=== PATIENT | male | born 1950 | race Caucasian/White ===

== ENCOUNTER → 2021-01-06 14:04 | Outpatient (BNVA) | payer MEDICARE, SELFPAY | PROVIDERS: PCP Internal Medicine; Visit Provider Internal Medicine Cardiovascular Disease ==

== ENCOUNTER → 2021-01-19 07:22 | Outpatient (REF) | payer MEDICARE, SELFPAY ==
--- NOTE | ~2021-01-19 | NM_ITS ---
Myocardial perfusion study Indication: Abnormal EKG to evaluate for myocardial ischemia Technique: The patient was brought in for a Lexiscan perfusion study on 01/19/2021. Patient performed low-level exercise and was injected 0.4 mg of Lexiscan intravenously. Within a minute of injection, 35 mCi of sestamibi was given intravenously. Images were obtained using the SPECT gamma camera interlaced with the gating device. Images were obtained in supine position. Resting perfusion study was performed on 01/20/2021. Patient was administered 35 mCi of sestamibi intravenously at rest. Images were then obtained in supine position. Images obtained with and without CT attenuation. Total DLP 92 mGy-cm. Images were processed with the software and compared side to side in short axis, horizontal long axis and vertical long axis views. Findings: The stress perfusion study showed nonattenuated images show large area of absent uptake in the inferoapical and apex of the LV myocardium with severely reduced uptake in the basal and mid inferior wall of the LV myocardium. Remainder of the LV myocardium is normally perfused except for the chest and inferolateral and inferoseptal osborne. Attenuation corrected images show moderately large area of absent uptake in the inferoapical and apical wall of the LV myocardium.. The gated study shows reduced LV systolic function with calculated LVEF of 44%. LV cavity is moderately dilated size. The gated study shows reduced inferior and absent inferoapical wall thickening and contraction of segments. Resting study shows no change in perfusion pattern compared to stress perfusion study. Gating at rest reveals inferior wall motion abnormality with ejection fraction at 45%. The findings are consistent with moderately large area of transmural infarct of the inferoapical and apical wall of the LV myocardium without any clear reversible ischemia.. NM/NM cardiolite stress test Impression: 1. Myocardial perfusion imaging study shows moderately large area of transmural infarct in the inferoapical and apical wall of the LV myocardium in RCA territory 2. Gated LVEF is 44% 3. Transient ischemic dilatation not present EKG is nondiagnostic
--- NOTE | 2021-01-19 07:30 | CA_ITS ---
Transthoracic Echocardiogram Patient (Last, First, Middle): Eron Escudero, Gender: Male Date of : 1950 Age: 70 Procedure Date: 01/19/2021 Procedure Type: Transthoracic Echocardiogram Location: OP Height: 182.88 cm Weight: 99.79 kg BSA: 2.22 m2 Heart Rate: bpm BP: 134 / 80 mmHg Dental Assistant: Referring MD: Marlo Dover MD Salvage Inspector Wood Parts: Marlo Dover MD Symptoms: R94.31 - Abnormal electrocardiogram [ECG] [EKG] Study Quality: Good on Apical views ECG Rhythm: Sinus with extra beats Conclusions: - 1. Moderate to severe LV systolic dysfunction with regional wall motion abnormality suggestive ischemic cardiomyopathy with impaired relaxation filling pattern 2. Mildly dilated left atrium 3. Normal cardiac valvular Doppler 4. Normal RV systolic pressure 5. No pericardial effusion Findings Left Ventricle Normal left ventricular cavity size. There is mildly increased left ventricular wall thickness. The left ventricular systolic function is moderate to severely decreased. The visually estimated ejection fraction is between 30-35%. Spectral Doppler is indicative of an impaired relaxation filling pattern. E/E prime ratio is between 8 and 15 consistent with indeterminate filling pressures. Wall Motion Rest Echo Findings The basal inferior and mid inferior segments are hypokinetic. The inferoseptal wall, the apex, apical anterior, and apical inferior segments are akinetic. All other scored wall segments showed normal motion. Right Ventricle Normal right ventricular cavity size and systolic function. Atria The left atrium is mildly dilated. There is no evidence of interatrial shunt. The right atrium is normal in size. Aortic Valve The aortic valve was not well visualized. There is no aortic valve stenosis. There is no aortic valve regurgitation. Mitral Valve Likely normal mitral valve structure and function. There is trace mitral valve regurgitation. There is no mitral valve stenosis. Pulmonic Valve The pulmonic valve was not well visualized. Tricuspid Valve There is trace tricuspid valve regurgitation. The right ventricular systolic pressure is normal. The right ventricular systolic pressure is 15 mmHg. There is no evidence of pulmonary hypertension. Great Vessels All visible segments of the aorta are normal in size. The pulmonary artery was not well visualized. Venous The inferior vena cava is normal in size and collapses greater than 50% with inspiration. Pericardium/Pleural There is no evidence of pericardial effusion. Prior Study Comparison No prior study available for comparison. Measurements 2D Linear Measurements IVSd: 1.39 0.6-0.9/0.6-1.0 cm LVIDd: 6.04 3.9-5.3/4.2-5.9 cm LVIDd Index: 2.72 2.4-3.2/2.2-3.1 cm/m2 LVIDs: 4.94 2.0-3.6 cm LVPWd: 1.26 0.7-1.1 cm Ao Root: 3.40 2.1-3.5 cm LA Diam: 4.20 2.7-3.8/3.0-4.0 cm LAIDs Index: 1.89 1.5-2.3 cm/m2 LV Mass: 453.32 67-162/88-224 g LV Mass Index: 204.20 43-95/49-115 g/m2 LVOT Diam: 2.20 3.0+(-)1.3 cm 2D Systolic Function EF 4C: 40.70 >55% EF 2C: 23.00 >55% Mitral Valve MV Pk E: 0.41 MV PK A: 0.97 MV Decel Time: 147.00 E/A: 0.40 E'Lateral: 3.59 E'Medial: 3.81 E/E' Med: 10.70 E/E' Lat: 11.30 PHT: 43.00 MVA PHT: 5.12 Decel Daniels: 2.76 Aortic Valve AoV Pk Derrick: 1.45 AoV Mn Derrick: 1.01 AoV VTI: 0.29 AoV Pk Grad: 8.00 Aov Mn Grad: 5.00 GWEN Cont.VTI: 2.59 LVOT LVOT Pk Derrick: 0.85 LVOT Mn Derrick: 0.58 LVOT VTI: 0.20 LVOT Pk Grad: 3.00 LVOT Mn Grad: 2.00 LVOT Diam: 2.20 LVOT Area: 3.80 Diastolic Function MV Pk E: 0.41 MV Pk A: 0.97 E/A: 0.40 E'Medial: 3.81 E/E' Med: 10.70 E' Laterial: 3.59 E/E' Lat: 11.30 Tricuspid Valve TR Pk Derrick: 1.70 TR Pk Grad: 12.00 RA Press: 3.00 RVSP: 15.00 Great Vessels Aorta Ao Root-2D: 3.40 2.0-3.7 cm Ao Asc: 3.50 2.1-3.4 cm Pulmonary Valve PV Pk Derrick: 1.21 Peak PV Grad: 6.00 Updated in Other Vendor System with Status of Final Marlo Dover MD electronically signed on 01/19/2021 4:07:19 PM with status of Final
--- NOTE | 2021-01-19 07:30 | CA_ITS ---
Acquisition Time: 2021-01-19 08:33:54 Total Exercise Time: 00:02:00 Test Indications: Abnormal ECG Medications: ATORVASTATIN CILOSTAZOL RAMIPRIL TRAZADONE Protocol: LEXISCAN Max HR: 092 BPM 61% of Pred: 149 BPM Max BP: 138/080 mmHG Max Work Load: 1.0 METS Pharmacological stress test with lexiscan injection, while sitting and kicking his legs, without anginal symptoms, with isolated PVC, with normotensive response to injection, with nondiagnostic EKG for ischemia. Nuclear images pending. Test reviewed with Dr Dover. Referred By: Marlo Dover Overread By: SHAHEED TORRES
== END ==
LOC: HO.CARD 07:22
PROVIDERS: PCP Physician Assistant Medical; Visit Provider Internal Medicine Cardiovascular Disease
DX: R94.31 Abnormal electrocardiogram [ECG] [EKG] (principal); I73.9 Peripheral vascular disease, unspecified; I25.10 Atherosclerotic heart disease of native coronary artery without angina pectoris
CPT/HCPCS: 78452; 93017; 93306; 99212; A9500; J0280; J2785

== ENCOUNTER 2021-01-24 08:36 | Outpatient (REF) | payer MEDICARE, SELFPAY ==
--- NOTE | ~2021-01-24 | US_ITS ---
EXAMINATION: NONINVASIVE ASSESSMENT OF THE ARTERIES OF BOTH LOWER EXTREMITIES BILATERAL LOWER EXTREMITY DUPLEX CLINICAL INFORMATION: Coronary artery disease TECHNIQUE: Bilateral duplex Doppler techniques with wave form analysis and measurement of velocities in the common femoral, profunda femoral, superficial femoral, popliteal and tibial arteries. The study was performed only at rest. COMPARISON: None FINDINGS: a) AT REST: RIGHT LEG: . Right direct duplex Doppler findings: There is atherosclerotic plaque. The right profunda appears occluded. * Common femoral artery: 82 cm/s, Diastolic flow reversal: No. Biphasic * Superficial femoral artery (proximal, mid, distal): 258, 191 and 101 cm/s, Diastolic flow reversal: No. Biphasic. * Popliteal artery: 99 cm/s, Diastolic flow reversal: No. Biphasic. * Posterior tibial artery: 80 cm/s, Diastolic flow reversal: No. Biphasic. LEFT LEG: Left direct duplex Doppler findings: There is atherosclerotic plaque. There is visible narrowing of the right mid and distal superficial femoral artery. * Common femoral artery: 218 cm/s, Diastolic flow reversal: No. [place] to biphasic. * Superficial femoral artery (proximal, mid, distal): 121, 661 and 91 cm/s, Diastolic flow reversal: No. Biphasic. * Popliteal artery: 31 cm/s, Diastolic flow reversal: No. Biphasic. * Posterior tibial artery: 35 cm/s, Diastolic flow reversal: No. Biphasic. * US/US arterial duplex LE BI IMPRESSION: Atherosclerotic disease, left greater than right. The right profunda appears occluded. There is a velocity change in the right SFA suggestive of moderate stenosis. Severe velocity change in the left SFA and visible luminal narrowing of the left mid and distal SFA suggestive of severe stenosis.
== END 2021-01-24 08:37 | disposition home or self-care (01) ==
LOC: HO.US 08:36
PROVIDERS: Visit Provider Internal Medicine Cardiovascular Disease
DX: I73.9 Peripheral vascular disease, unspecified (principal); I25.10 Atherosclerotic heart disease of native coronary artery without angina pectoris
CPT/HCPCS: 93925

== ENCOUNTER 2021-01-27 12:34 | Outpatient (REF) | payer MEDICARE, SELFPAY ==
[2021-01-27 14:11] LABS: Hematocrit 42.1 % (42-52); Hemoglobin 13.9 g/dl (14.0-18.0); Mean Platelet Volume 9.6 fL (9.4-12.4); Platelet Count 243 X10*3/uL (160-400); Red Blood Count 4.48 X10*6/uL (4.60-5.80); Red Cell Distribution Width 11.8 % (11.0-16.0); White Blood Count 8.2 X10*3/uL (4.8-10.8)
[2021-01-27 14:14] LABS: Prothrombin Time 11.4 SEC (10.8-13.0)
[2021-01-27 14:43] LABS: Anion Gap 14 (12-20); Blood Urea Nitrogen 23 mg/dL (9-16); Carbon Dioxide 25 mmol/L (22-29); Chloride 107 mmol/L (96-108); Estimated Glomerular Filt Rate 51; Glucose Random 131 mg/dL (60-115); Potassium 5.7 mmol/L (3.3-5.1); Sodium 140 mmol/L (135-145)
== END 2021-01-27 12:35 | disposition home or self-care (01) ==
LOC: HO.LAB 12:34
PROVIDERS: PCP Physician Assistant Medical; Referring Provider Physician Assistant Medical; Visit Provider Internal Medicine Cardiovascular Disease
DX: I25.10 Atherosclerotic heart disease of native coronary artery without angina pectoris (principal); I25.5 Ischemic cardiomyopathy; Z79.899 Other long term (current) drug therapy
CPT/HCPCS: 36415; 80048; 85027; 85610; 99212

== ENCOUNTER 2021-02-03 14:13 | Outpatient (REF) | payer MEDICARE, SELFPAY ==
[2021-02-03 16:51] LABS: Anion Gap 13 (12-20); Blood Urea Nitrogen 24 mg/dL (9-16); Calcium 9.3 mg/dL (8.4-10.2); Carbon Dioxide 23 mmol/L (22-29); Chloride 107 mmol/L (96-108); Estimated Glomerular Filt Rate 53; Glucose Random 152 mg/dL (60-115); Potassium 4.8 mmol/L (3.3-5.1); Sodium 138 mmol/L (135-145)
== END 2021-02-03 14:14 | disposition home or self-care (01) ==
LOC: HO.HMGCLDS 14:13
PROVIDERS: Visit Provider Internal Medicine Cardiovascular Disease
DX: I25.10 Atherosclerotic heart disease of native coronary artery without angina pectoris (principal)
CPT/HCPCS: 36415; 80048

== ENCOUNTER → 2021-02-28 14:59 | Outpatient (BNVA) | payer MEDICARE, SELFPAY | PROVIDERS: PCP Physician Assistant Medical; Referring Provider Physician Assistant Medical; Visit Provider Internal Medicine Cardiovascular Disease | DX: I25.5 Ischemic cardiomyopathy (principal); I25.10 Atherosclerotic heart disease of native coronary artery without angina pectoris; I73.9 Peripheral vascular disease, unspecified | CPT/HCPCS: 99212 ==

== ENCOUNTER → 2021-03-03 13:45 | Outpatient (BNVA) | payer MEDICARE, SELFPAY | PROVIDERS: PCP Physician Assistant Medical; Visit Provider Surgery Vascular Surgery | DX: I73.9 Peripheral vascular disease, unspecified (principal); I25.10 Atherosclerotic heart disease of native coronary artery without angina pectoris; I25.5 Ischemic cardiomyopathy; Z87.891 Personal history of nicotine dependence | CPT/HCPCS: 99202 ==

== ENCOUNTER → 2021-04-13 14:43 | Outpatient (BNVA) | payer MEDICARE, SELFPAY | PROVIDERS: PCP Physician Assistant Medical; Referring Provider Physician Assistant Medical; Visit Provider Nurse Practitioner Family | DX: T82.898A Other specified complication of vascular prosthetic devices, implants and grafts, initial encounter (principal); I21.19 ST elevation (STEMI) myocardial infarction involving other coronary artery of inferior wall; I25.10 Atherosclerotic heart disease of native coronary artery without angina pectoris; I25.5 Ischemic cardiomyopathy; I73.9 Peripheral vascular disease, unspecified; Z87.891 Personal history of nicotine dependence; Z98.890 Other specified postprocedural states | CPT/HCPCS: 99212 ==

== ENCOUNTER → 2021-05-16 13:52 | Outpatient (REF) | payer MEDICARE, SELFPAY ==
--- NOTE | 2021-05-16 13:57 | CA_ITS ---
Transthoracic Echocardiogram Patient (Last, First, Middle): Eron Escudero, Gender: Male Date of : 1950 Age: 70 Procedure Date: 05/16/2021 Procedure Type: Transthoracic Echocardiogram Location: OP Height: 193.04 cm Weight: 99.79 kg BSA: 2.31 m2 Heart Rate: bpm BP: 130 / 81 mmHg Vehicle Body Builder: YAS Referring MD: Marlo Dover MD Symptoms: I42.9 - Cardiomyopathy, unspecified Study Quality: Fair ECG Rhythm: Sinus Conclusions: - The left ventricular systolic function is mildly decreased. The calculated ejection fraction is 50% by biplane method. - The apex, apical anterior, and apical inferior segments are akinetic. Findings Left Ventricle Normal left ventricular cavity size. The left ventricular systolic function is mildly decreased. The calculated ejection fraction is 50% by biplane method. There is evidence of regional wall motion abnormalities. LV peak GLS -10.5%, Wall Motion Rest Echo Findings The apex, apical anterior, and apical inferior segments are akinetic. Prior Study Comparison Changes noted compared to prior study dated: 01/19/2021. LVEF improved. Measurements 2D Linear Measurements LVIDd: 5.92 3.9-5.3/4.2-5.9 cm LVIDd Index: 2.56 2.4-3.2/2.2-3.1 cm/m2 LVIDs: 4.07 2.0-3.6 cm 2D Systolic Function EF 4C: 56.40 >55% EF 2C: 47.00 >55% EF BiP: 49.60 >55% Mitral Valve MV Pk E: 0.51 MV PK A: 0.89 MV Decel Time: 346.00 E/A: 0.60 E'Lateral: 7.83 E'Medial: 4.35 E/E' Med: 11.80 E/E' Lat: 6.60 PHT: 101.00 MVA PHT: 2.18 Decel [place]: 1.49 Diastolic Function MV Pk E: 0.51 MV Pk A: 0.89 E/A: 0.60 E'Medial: 4.35 E/E' Med: 11.80 E' Laterial: 7.83 E/E' Lat: 6.60 Updated in Other Vendor System with Status of Final Danny Monroe MD electronically signed on 05/16/2021 4:19:50 PM with status of Final
== END ==
LOC: HO.CARD 13:52
PROVIDERS: PCP Physician Assistant Medical; Visit Provider Internal Medicine Cardiovascular Disease
DX: I25.5 Ischemic cardiomyopathy (principal); I42.9 Cardiomyopathy, unspecified
CPT/HCPCS: 93308

== ENCOUNTER → 2021-06-02 13:47 | Outpatient (BNVA) | payer MEDICARE, SELFPAY | PROVIDERS: PCP Physician Assistant Medical; Referring Provider Physician Assistant Medical; Visit Provider Internal Medicine Cardiovascular Disease | DX: I25.5 Ischemic cardiomyopathy (principal); I25.10 Atherosclerotic heart disease of native coronary artery without angina pectoris | CPT/HCPCS: 99212 ==

== ENCOUNTER 2021-06-15 05:47 | Day surgery (SDC) | payer MEDICARE, SELFPAY ==
[2021-06-15] VITALS (7 sets, daily range): BP systolic 142–165; BP diastolic 80–90; PULSE 59–75; RESP 18–20; TEMP 36.4–36.9; O2SAT 96–99; BMI 26.7
[2021-06-15] MEDS: 0.9 % Sodium Chloride 1,000 ML 100 ML IVCONT (06:46)
[2021-06-15 06:49] LABS: MANUAL DIFF FLAG NO
[2021-06-15 06:50] LABS: Basophils Percent Auto 0.3 % (0-2); Eosinophils Absolute Auto 0.2 X10*3/uL (0.0-0.4); Eosinophils Percent Auto 2.7 % (0-4); Hematocrit 37.6 % (42.0-52.0); Hemoglobin 12.9 g/dl (14.0-18.0); Imm Gran Abs Auto 0.05 X10*3/uL (0.00-0.03); Imm Gran Pct Auto 0.7 % (0.0-0.4); Lymphocytes Absolute Auto 1.5 X10*3/uL (1.2-4.9); Lymphocytes Percent Auto 20.7 % (20-40); Mean Corpuscular HGB Conc 34.3 g/dl (31.0-36.0); Mean Corpuscular Hemoglobin 32.6 pg (27.0-33.0); Mean Corpuscular Volume 94.9 fL (80.0-98.0); Mean Platelet Volume 9.6 fL (9.4-12.4); Monocytes Absolute Auto 0.7 X10*3/uL (0.1-1.2); Monocytes Percent Auto 9.1 % (2-11); Neutrophils Absolute Auto 4.88 x10*3/uL (2.0-8.3); Neutrophils Percent Auto 66.5 % (45-73); Platelet Count 202 X10*3/uL (160-400); Red Blood Count 3.96 X10*6/uL (4.60-5.80); Red Cell Distribution Width 11.6 % (11.0-16.0); White Blood Count 7.3 X10*3/uL (4.8-10.8)
[2021-06-15 06:56] LABS: Prothrombin Time 10.8 SEC (9.9-13.0)
[2021-06-15 06:59] LABS: Partial Thromboplastin Time 35.2 SEC (24.1-38.0)
[2021-06-15 07:14] LABS: Anion Gap 11 (12-20); Blood Urea Nitrogen 19 mg/dL (9-16); Calcium 9.2 mg/dL (8.4-10.2); Carbon Dioxide 23 mmol/L (22-29); Chloride 107 mmol/L (96-108); Estimated Glomerular Filt Rate 53; Glucose Random 186 mg/dL (60-115); Potassium 4.8 mmol/L (3.3-5.1); Sodium 136 mmol/L (135-145)
--- NOTE | 2021-06-15 09:46 | W.PM.OPN ---
Operative Note Operative Note Date of Service: 06/15/21 Narrative: Angiogram report from [facility] Preoperative diagnosis: Atherosclerosis of left lower extremity with activity limiting claudication Postoperative diagnosis: Same Procedure: 1. Ultrasound-guided right common femoral access 2. Aortogram with left lower extremity runoff 3. Atherectomy and stent of left SFA 4. Plasty of left SFA with DCB Surgeon:Sergio Robledo M.D., FACS, RPVI Custom Tailor Apprentice:None Anesthesia: Local with moderate conscious sedation. Total intraservice moderate sedation time was 79 minutes. I monitored the patient's level of consciousness and physiologic status continuously throughout the procedure. Specimens:none Drains:none Estimated blood loss: Less than 10 ml Implant: Ev3 6 x 40 stent; Medtronic Impact DCB 6 x 40 Indications: 70-year-old gentleman with activity limiting claudication. He has had noninvasive testing. He now presents for endovascular intervention The patient has signed the informed consent after reviewing risks, complications, benefits, and alternatives previously discussed with the patient. The patient was given the opportunity to ask any additional questions or voice any concerns. All questions were answered to the patient's satisfaction. Procedure in detail: Patient was brought to the angiography suite prior to which a time-out was called for patient identification and site verification. Bilateral groins were prepped and draped in the standard surgical fashion. Under ultrasound guidance right common femoral was punctured with micro puncture needle and wire. Subsequently a precision 4 [place] sheath was then placed. Bentson wire was advanced to the level of the aorta. 4 [place]ian Flush catheter was brought up and parked at the level of the renal arteries. Aortogram was then undertaken. Catheter was brought down to the level of the iliac bifurcation. Iliacs were subsequently imaged. Catheter was then brought in up and over to the left side SFA. Runoff study was then undertaken. At this time he had multiple high-grade stenosis throughout the entire SFA. We then administered 7000 units of systemic heparin. After 5 minutes of circulation time up and over 6 [place]ian sheath was then placed. Glidewire Advantage was used to traverse the lesion. Once this was done we confirmed true lumen with a now be cross catheter instilled with contrast. We then advanced a spider wire over this and parked in the P2 segment of the popliteal. We then performed a Hawk [address] [place] atherectomy of the SFA. There was a lesion in the proximal portion and a 2nd lesion in the mid to distal. Multiple unidirectional passes were undertaken. The device had to be brought out flushed out and reinserted for additional passes. Once the plaque was debulked. We then turned our attention to the 2 lesions. We performed DCB plasty of both lesions with a 6 x 40 balloon. This was brought into position in under 3 minutes and insufflated for a total of 3 minutes in duration. Once this was done the more proximal 1 demonstrated residual stenosis. 6 x 40 stent was then placed. This was plastied post deployment to obtain good wall apposition. Completion angiogram demonstrated excellent result. StarClose closure device was then deployed. Interpretation of films: 1. Ultrasound demonstrates appropriate femoral puncture. Image of which was saved. 2. Aortogram demonstrates appropriate caliber aorta. Minimal disease. Appropriate take-off of the renals. 3. Iliac images demonstrate minimal disease 4. Left Leg Common femoral artery: Did have some mild eccentric plaque Profundus Femoris: No significant disease Superficial femoral artery: Multiple small stenotic areas proximal SFA and distal SFA did have a high-grade stenosis Popliteal artery (p1,p2,p3): Patent Anterior tibial artery: Occluded Peroneal artery: Dominant runoff there was some disease at the proximal trifurcation Posterior tibial artery: Patent but small in caliber Dorsalis pedis/plantar arch: Not visualized Conclusion: 1. Successful atherectomy and stent of left SFA 2. Anticoagulation status: Due to the use of a DCB he will require 6 months of aspirin and Plavix This note is constructed using voice recognition software. While every effort has been made to ensure accuracy, fence post cutter errors may have been included. Thank you for allowing me to participate in the care of your patient. Yours sincerely, Sergio Robledo MD, FACS, R.P.V.I.
[2021-06-15] MEDS: Clopidogrel Bisulfate 300 MG TABLET PO (10:14)
[2021-06-15] MEDS: iohexoL 300 MG/ML 100 ML INFUS..BTL IV (12:34)
[2021-06-15] MEDS: Lidocaine HCl 1 % MPF 5 ML VIAL SUBCUT (12:35)
[2021-06-15] MEDS: iohexoL 300 MG/ML 50 ML INFUS..BTL IV (12:35)
== END 2021-06-15 11:48 | disposition home or self-care (01) ==
PROVIDERS: PCP Physician Assistant Medical; Visit Provider Surgery Vascular Surgery
DX: I70.212 Atherosclerosis of native arteries of extremities with intermittent claudication, left leg (principal); R25.2 Cramp and spasm; M79.662 Pain in left lower leg; M79.89 Other specified soft tissue disorders; I25.10 Atherosclerotic heart disease of native coronary artery without angina pectoris; I25.5 Ischemic cardiomyopathy; Z87.891 Personal history of nicotine dependence
CPT/HCPCS: 36415; 37227; 76937; 80048; 85025; 85610; 85730; 99152; 99153; C1714; C1725; C1760; C1769; C1876; C1884; C1887; J2250; J3010; Q9967

== ENCOUNTER → 2021-06-28 10:51 | Outpatient (BNVA) | payer MEDICARE, SELFPAY | PROVIDERS: PCP Physician Assistant Medical; Visit Provider Surgery Vascular Surgery | DX: I73.9 Peripheral vascular disease, unspecified (principal) | CPT/HCPCS: 99212 ==

== ENCOUNTER 2021-09-28 12:15 | Outpatient (REF) | payer MEDICARE, SELFPAY ==
--- NOTE | ~2021-09-28 | US_ITS ---
EXAMINATION: US NONINVASIVE ASSESSMENT OF THE ARTERIES OF BOTH LOWER EXTREMITIES WITH ANKLE PRESSURE MEASUREMENTS, ANKLE BRACHIAL INDICES, PVR MEASUREMENTS AND BILATERAL LOWER EXTREMITY DUPLEX. CLINICAL INFORMATION: Lower extremity claudication. TECHNIQUE: Ankle pressure measurements, ankle brachial indices and PVR tracings were obtained of the lower extremity arterial system bilaterally. In addition, duplex Doppler techniques with wave form analysis and measurement of velocities in the common femoral, profunda femoral, superficial femoral, popliteal and tibial arteries was performed. The study was performed only at rest. COMPARISON: 01/24/2021 FINDINGS: NONINVASIVE ASSESSMENT OF THE ARTERIES OF BOTH LOWER EXTREMITIES WITH ABIs: RIGHT LEG: Right ankle-brachial index: 0.85 PVR (ankle): Abnormal, dampened LEFT LEG: Ankle-brachial index: 0.71 PVR (ankle): Abnormal, dampened BILATERAL LOWER EXTREMITY DUPLEX ULTRASOUND: RIGHT LEG: Common femoral artery: 397 cm/s, Diastolic flow reversal: Yes Profunda femoris artery: 66.8 cm/s, Diastolic flow reversal: No Superficial femoral artery (proximal): 162 cm/s, Diastolic flow reversal: No Superficial femoral artery (mid): 123 cm/s, Diastolic flow reversal: Yes Superficial femoral artery (distal): 61.3 cm/s, Diastolic flow reversal: Yes Popliteal artery: 77.4 cm/s, Diastolic flow reversal: Yes Posterior tibial artery: 50.7 cm/s, Diastolic flow reversal: Yes Peroneal artery: 22.8 cm/s, diastolic flow reversal: No LEFT LEG: Common femoral artery: 129 cm/s, Diastolic flow reversal: Yes Profunda femoris artery: 78.6 cm/s, Diastolic flow reversal: No Superficial femoral artery (proximal): 76.2 cm/s, Diastolic flow reversal: Yes Proximal stent: 101 cm/s, Diastolic flow reversal: Yes Mid stent: 76.2 cm/s, Diastolic flow reversal: Yes Distal stent: 96.6 cm/s, Diastolic flow reversal: Yes Superficial femoral artery (distal): 140 cm/s, Diastolic flow reversal: Yes Popliteal artery: 43.6 cm/s, Diastolic flow reversal: No Posterior tibial artery: 51.1 cm/s, Diastolic flow reversal: Yes Peroneal artery: 45.6 cm/s, diastolic flow reversal: No US/US arterial duplex LE BI IMPRESSION: RIGHT LEG: SVEN 0.85 consistent with mild peripheral arterial disease. Duplex exam reveals markedly elevated velocities within the common femoral artery consistent with a high-grade stenosis. LEFT LEG: SVEN 0.71 consistent with moderate peripheral arterial disease. A left superficial femoral artery stent is patent without any evidence of intra-stent stenosis. No hemodynamically significant lesions identified on duplex by velocity criteria. SVEN Reference: - >0.97-1.25 = normal - no significant arterial disease - 0.75-0.96 = mild peripheral arterial disease - 0.5-0.74 = moderate peripheral arterial disease - <0.50 = severe peripheral arterial disease
== END 2021-09-28 12:16 | disposition home or self-care (01) ==
LOC: HO.US 12:15
PROVIDERS: PCP Physician Assistant Medical; Visit Provider Surgery Vascular Surgery
DX: I73.9 Peripheral vascular disease, unspecified (principal)
CPT/HCPCS: 93923; 93925

== ENCOUNTER → 2021-09-29 09:06 | Outpatient (BNVA) | payer MEDICARE, SELFPAY | PROVIDERS: PCP Physician Assistant Medical; Visit Provider Surgery Vascular Surgery | DX: I73.9 Peripheral vascular disease, unspecified (principal) | CPT/HCPCS: 99212 ==

== ENCOUNTER → 2021-11-29 15:15 | Outpatient (BNVA) | payer MEDICARE, SELFPAY | PROVIDERS: PCP Physician Assistant Medical; Referring Provider Physician Assistant Medical; Visit Provider Internal Medicine Cardiovascular Disease | DX: I25.5 Ischemic cardiomyopathy (principal); I25.10 Atherosclerotic heart disease of native coronary artery without angina pectoris; M79.641 Pain in right hand; Z79.899 Other long term (current) drug therapy | CPT/HCPCS: 99212 ==

== ENCOUNTER 2022-04-12 14:17 | Outpatient (REF) | payer MEDICARE, SELFPAY ==
--- NOTE | ~2022-04-12 | US_ITS ---
EXAMINATION: COLOR-FLOW DUPLEX IMAGING OF THE BILATERAL LOWER EXTREMITY ARTERIAL SYSTEM. VELOCITY MEASUREMENTS THROUGHOUT THE FEMORAL ARTERIES WITH ANKLE-BRACHIAL PERIPHERAL ARTERIAL TESTING. Interventional Radiologist: Moses Osborne M.D., F.S.I.R., F.A.C.R. Clinical history: This is a 71-year-old male with peripheral vascular disease. COMPARISON: Comparison is made to a previous study dated 09/28/2021 RIGHT LEG: Right ankle-brachial index: 0.83. Previously, 0.85 PVR (ankle): Abnormal, dampened LEFT LEG: Ankle-brachial index: 0.71. Previously, 0.71 PVR (ankle): Abnormal, dampened BILATERAL LOWER EXTREMITY DUPLEX ULTRASOUND: RIGHT LEG: Common femoral artery: 67 cm/s and monophasic. Previously, 397 cm/s, Diastolic flow reversal: Yes Profunda femoris artery: 24 cm/s and monophasic. Previously, 66.8 cm/s, Diastolic flow reversal: No Superficial femoral artery (proximal): 541 cm/s and monophasic. This likely represents the area seen on the previous study with the elevated velocity. 162 cm/s, Diastolic flow reversal: No Superficial femoral artery (mid): 113 cm/s and monophasic. Previously, 123 cm/s, Diastolic flow reversal: Yes Superficial femoral artery (distal): 61 cm/s and monophasic. Previously, 61.3 cm/s, Diastolic flow reversal: Yes Popliteal artery: 48 cm/s and monophasic. Previously, 77.4 cm/s, Diastolic flow reversal: Yes Posterior tibial artery: 57 cm/s and monophasic. Previously, 50.7 cm/s, Diastolic flow reversal: Yes Scratch that LEFT LEG: Common femoral artery: 311 cm/s and triphasic. Previously, 129 cm/s, Diastolic flow reversal: Yes Profunda femoris artery: 110 cm/s and triphasic. Previously, 78.6 cm/s, Diastolic flow reversal: No Superficial femoral artery (proximal): 180 cm/s and triphasic. Previously, 76.2 cm/s, Diastolic flow reversal: Yes Proximal stent: 112 cm/s and triphasic. Previously, 101 cm/s, Diastolic flow reversal: Yes Mid stent: 120 cm/s and triphasic. Previously, 76.2 cm/s, Diastolic flow reversal: Yes Distal stent: 112 cm/s and triphasic. Previously, 96.6 cm/s, Diastolic flow reversal: Yes Superficial femoral artery (distal): 138 cm/s and triphasic. Previously, 140 cm/s, Diastolic flow reversal: Yes Popliteal artery: 52 cm/s and monophasic. Previously, 43.6 cm/s, Diastolic flow reversal: No Posterior tibial artery: 33 cm/s and monophasic. Previously, 51.1 cm/s, Diastolic flow reversal: Yes US/US arterial duplex LE BI IMPRESSION: 1. RIGHT LEG: Although the ankle-brachial index appears unchanged and measures 0.85, there appears to be a hemodynamically significant stenosis at the junction of the right common femoral artery with the right superficial femoral artery. This was present previously and does not appear changed. 2. LEFT LEG: Although the ankle-brachial index appears unchanged and measures 0.71, there is a hemodynamically significant stenosis in the left common femoral artery which was not apparent on the previous study. No intraosseous stent stenosis is seen. SVEN Reference: - >0.97-1.25 = normal - no significant arterial disease - 0.75-0.96 = mild peripheral arterial disease - 0.5-0.74 = moderate peripheral arterial disease - <0.50 = severe peripheral arterial disease
== END 2022-04-12 14:18 | disposition home or self-care (01) ==
LOC: HO.US 14:17
PROVIDERS: Visit Provider Surgery Vascular Surgery
DX: I73.9 Peripheral vascular disease, unspecified (principal)
CPT/HCPCS: 93923; 93925

== ENCOUNTER → 2022-04-25 14:48 | Outpatient (BNVA) | payer MEDICARE, SELFPAY | PROVIDERS: PCP Physician Assistant Medical; Visit Provider Surgery Vascular Surgery | DX: I73.9 Peripheral vascular disease, unspecified (principal); Z95.820 Peripheral vascular angioplasty status with implants and grafts | CPT/HCPCS: 99212 ==

== ENCOUNTER → 2022-06-19 15:20 | Outpatient (BNVA) | payer MEDICARE, SELFPAY | PROVIDERS: PCP Physician Assistant Medical; Referring Provider Physician Assistant Medical; Visit Provider Internal Medicine Cardiovascular Disease | DX: I25.5 Ischemic cardiomyopathy (principal); I25.10 Atherosclerotic heart disease of native coronary artery without angina pectoris | CPT/HCPCS: 93005; 99212 ==

== ENCOUNTER 2023-03-08 13:44 | Outpatient (REF) | payer MEDICARE, SELFPAY ==
--- NOTE | ~2023-03-08 | US_ITS ---
EXAMINATION: NONINVASIVE ASSESSMENT OF THE ARTERIES OF BOTH LOWER EXTREMITIES WITH PVR EXAM AND BILATERAL LOWER EXTREMITY DUPLEX Mihaela Mcfadden MD CLINICAL INFORMATION: Peripheral vascular disease TECHNIQUE: Ankle pulse volume recordings, ankle pressure measurements and ankle brachial indices were obtained of the lower extremity arterial system bilaterally in addition to duplex Doppler techniques with wave form analysis and measurement of velocities in the common femoral, profunda femoral, superficial femoral, popliteal and tibial arteries. The study was performed only at rest. COMPARISON: Arterial duplex on 04/12/2022 FINDINGS: Extensive atherosclerotic plaque bilaterally. a) AT REST: RIGHT LE. The right ankle-brachial index is: 0.84 * >0.97-1.25 = normal - no significant arterial disease * 0.75-0.96 = mild peripheral arterial disease * 0.5-0.74 = moderate peripheral arterial disease * <0.50 = severe peripheral arterial disease 2. Right ankle pressure: Abnormal 3. Right ankle PVR waveform: Normal 4. Right direct duplex Doppler findings: Common femoral artery: 629 cm/s, monophasic Profunda femoris artery: 56 cm/s, monophasic Superficial femoral artery (proximal): 102 cm/s, monophasic Superficial femoral artery (mid): 131 cm/s, monophasic Superficial femoral artery (distal): 49 cm/s, monophasic Proximal Popliteal artery: 212 cm/s, monophasic Mid posterior tibial artery: 54 cm/s, monophasic Severe atherosclerotic disease at the common femoral artery. Multiple thigh collaterals. LEFT LE. The left ankle-brachial index is: 0.76 * >0.97-1.25 = normal - no significant arterial disease * 0.75-0.96 = mild peripheral arterial disease * 0.5-0.74 = moderate peripheral arterial disease * <0.50 = severe peripheral arterial disease 2. Left ankle pressure: Abnormal 3. Left ankle PVR waveform: Abnormal 4. Left direct duplex Doppler findings: Common femoral artery: 206 cm/s, Multiphasic Profunda femoris artery: 143 cm/s, Multiphasic Superficial femoral artery (proximal): 82 cm/s, monophasic Superficial femoral artery (mid): 314 cm/s, monophasic Superficial femoral artery (distal): 74 cm/s, monophasic Proximal Popliteal artery: 32 cm/s, monophasic Mid posterior tibial artery: 49 cm/s, monophasic Multiple thigh collaterals. US/US arterial duplex LE BI IMPRESSION: RIGHT LEG: Severe atherosclerotic disease at the right common femoral artery with monophasic flow throughout the right lower extremity. Mild peripheral arterial disease by SVEN. LEFT LE. Moderate peripheral arterial disease. 2. Severe atherosclerotic disease in the left mid superficial femoral artery. Overall not significantly changed compared to 2021.
== END 2023-03-08 13:45 | disposition home or self-care (01) ==
LOC: HO.US 13:44
PROVIDERS: PCP Physician Assistant Medical; Visit Provider Surgery Vascular Surgery
DX: I70.213 Atherosclerosis of native arteries of extremities with intermittent claudication, bilateral legs (principal)
CPT/HCPCS: 93923; 93925

== ENCOUNTER 2023-04-19 13:06 | Outpatient (AMB) | payer MEDICARE, SELFPAY ==
--- NOTE | 2023-04-19 13:09 | MHC.OFFVIS ---
Intake Vital Signs 04/19/23 13:10 Height 6 ft 4 in Weight 216 lb BMI 26.3 Intake Visit Reasons: 1 year follow up s/p Arterial US 03/08/23 Intake Note: 1 yr follow up arterial US 03/08/23 w/ hx of Left LE Angio 05/15/21, pt states he is doing well, pt states he in on his feet working long hours, they get tired after standing all day, but not as bad as before angiogram Accompanied by: Self / Same As Patient Allergies No Known Allergies Allergy (Verified 04/19/23 13:12) HPI 1 year follow up s/p Arterial US 03/08/23 HPI Details Very pleasant 72-year-old gentleman presents for follow-up regarding peripheral vascular disease. He had actually undergone left lower extremity intervention about 2 years prior. He has been doing well since that time. He continues to golf on a regular basis. 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 He now presents with surveillance ultrasound. Of note he is being maintained on aspirin and statin. [facility] Medical History Inferior myocardial infarction Ischemic cardiomyopathy CAD (coronary artery disease) PVD (peripheral vascular disease) Surgical History S/P angiogram of extremity (06/08/21) S/P cardiac catheterization Hx of cardiac cath Family History Father CVD (cardiovascular disease) Social History Patient Tobacco Use Status: Former Tobacco user Review of Systems Const All systems reviewed & are unremarkable except as noted in HPI and below Reports no additional complaints ENT Reports Normal hearing present Card Denies chest pain, Denies chest pain at rest, Denies chest pain with activity and Denies pedal edema Resp Denies cough GI Denies abdominal pain Musc Denies abnormal gait, Denies muscle cramps and Denies radiating pain into limb Skin/Breast Denies skin ulcer and Denies wounds Neuro Reports Normal hearing present and Denies abnormal gait Psych Reports no additional complaints Physical Exam Vital Signs: BMI result Body Mass Index 26.3 Const General: cooperative, healthy appearing and comfortable Orientation/consciousness: oriented to person, oriented to place and oriented to time HEENT Head: Yes normal to inspection Neck Neck: Yes normal visual inspection Carotids: no bruits Chest Chest palpation & inspection: normal inspection of the chest Resp Effort & Inspection: normal respiratory effort and able to speak in complete sentences Auscultation: clear to auscultation bilaterally, no crackles, no rales, no rhonchi and no wheezes Cardio Other: Bilateral DP signal Rate: regular rate Rhythm: regular rhythm Heart sounds: S1 normal heart sound present and S2 normal heart sound present Bruits: no carotid bruits GI Inspection: Yes normal to inspection Skin Wounds: no wounds Hair: normal Neuro General: oriented to person, oriented to place and oriented to time Cranial nerves: Yes CN's II-XII intact bilaterally and Yes Normal hearing present Cognition (Neuro): normal cognition Motor exam (neuro): 5/5 motor strength present throughout Extrem Other: venous exam: No significant superficial varicosities or spider telangiectasias, minimal edema General: No clubbing, No cyanosis and No edema Psych Appearance: grossly normal Mental Status: mental status grossly normal Speech and movement: Normal speech and movement present Assessment & Plan Assessment & Plan (1) PVD (peripheral vascular disease): Comment: 05/15/2021 - atherectomy and stent of left SFA, plasty of left SFA with DCB Code(s): I73.9 - Peripheral vascular disease, unspecified Plan: In short patient has stable claudication. I did review the pathophysiology of peripheral vascular disease with the patient. In addition we did discuss routine conservative measures including a healthy diet and the importance of exercise and ambulation. We did discuss risk factor modification. The patient will continue to to follow-up with surveillance follow-up in approximately 1 year. Thank you for allowing us to participate in this patient's care. If there are any questions or concerns please do not hesitate to contact us. Orders: Orders US arterial duplex LE BI 364 Days I73.9 - Peripheral vascular disease, unspecified Coding Level of Care Code Est Pt Level 3 (94803) Diagnoses PVD (peripheral vascular disease) I73.9
[2023-04-19 13:10] VITALS: BMI 26.3
== END 2023-04-19 13:47 | disposition home or self-care (01) ==
PROVIDERS: PCP Physician Assistant Medical; Visit Provider Surgery Vascular Surgery
DX: I73.9 Peripheral vascular disease, unspecified (principal)
CPT/HCPCS: 99213

== ENCOUNTER → 2023-04-19 13:06 | Outpatient (BNVA) | payer MEDICARE, SELFPAY | PROVIDERS: PCP Physician Assistant Medical; Visit Provider Surgery Vascular Surgery | DX: I73.9 Peripheral vascular disease, unspecified (principal); Z98.890 Other specified postprocedural states | CPT/HCPCS: 99212 ==

== ENCOUNTER → 2023-06-08 12:45 | Outpatient (REF) | payer MEDICARE, SELFPAY ==
--- NOTE | 2023-06-08 12:48 | CA_ITS ---
Transthoracic Echocardiogram Amended Patient (Last, First, Middle): Eron Escudero, Gender: Male Date of : 1950 Age: 72 Procedure Date: 06/08/2023 Procedure Type: Transthoracic Echocardiogram Location: OP Height: 193.04 cm Weight: 99.79 kg BSA: 2.31 m2 Heart Rate: 60 bpm BP: 132 / 60 mmHg Medical Photographer: INDY Referring MD: Marlo Dover MD Edi Manager: Marlo Dover MD Symptoms: I25.5 - Ischemic cardiomyopathy Study Quality: Adequate ECG Rhythm: Sinus Conclusions: - 1. Mildly dilated left ventricle with LVEF of 45-50% 2. Mildly dilated left atrium 3. Normal RV systolic pressure 4. Mildly dilated ascending aorta at 3.8 cm 5. No gross pericardial effusion Findings Left Ventricle Mildly increased left ventricular cavity size. There is normal left ventricular wall thickness. The left ventricular systolic function is mildly decreased. The visually estimated ejection fraction is between 45-50%. Spectral Doppler is indicative of an impaired relaxation filling pattern. E/E prime ratio is between 8 and 15 consistent with indeterminate filling pressures. Peak GLS is -12.2%, which is moderately reduced Wall Motion Rest Echo Findings The inferoseptal wall, the mid inferior, and apical septum segments are hypokinetic. The apical inferior segment is akinetic. All other scored wall segments showed normal motion. Right Ventricle Normal right ventricular cavity size and systolic function. Atria The left atrium is mildly dilated. There is lipomatous hypertrophy of the interatrial septum. There is no evidence of interatrial shunt. The right atrium is normal in size. Aortic Valve There is mild calcification of the aortic valve. There is no aortic valve stenosis. There is no aortic valve regurgitation. Mitral Valve Normal mitral valve structure and function. There is trace mitral valve regurgitation. There is no mitral valve stenosis. Pulmonic Valve The pulmonic valve was not well visualized. Tricuspid Valve Normal tricuspid valve structure. There is trace tricuspid valve regurgitation. The right ventricular systolic pressure is normal. The right ventricular systolic pressure is 16 mmHg. Normal right atrial pressure. There is no evidence of pulmonary hypertension. Great Vessels The pulmonary artery was not well visualized. There is mild dilatation of the ascending aorta measuring 3.80 cm. Venous The inferior vena cava is normal in size and collapses greater than 50% with inspiration. Pericardium/Pleural There is no evidence of pericardial effusion. Measurements 2D Linear Measurements IVSd: 1.18 0.6-0.9/0.6-1.0 cm LVIDd: 6.10 3.9-5.3/4.2-5.9 cm LVIDd Index: 2.64 2.4-3.2/2.2-3.1 cm/m2 LVIDs: 3.93 2.0-3.6 cm LVPWd: 1.13 0.7-1.1 cm LA Diam: 4.50 2.7-3.8/3.0-4.0 cm LAIDs Index: 1.95 1.5-2.3 cm/m2 LV Mass: 382.56 67-162/88-224 g LV Mass Index: 165.61 43-95/49-115 g/m2 LVOT Diam: 2.00 3.0+(-)1.3 cm 2D Volumes LA Vol: 22.30 2D Systolic Function EF 4C: 47.10 >55% EF 2C: 46.70 >55% EF BiP: 47.70 >55% Mitral Valve MV Pk E: 0.72 MV PK A: 1.10 MV Decel Time: 317.00 E/A: 0.70 E'Lateral: 4.46 E'Medial: 4.68 E/E' Med: 15.50 E/E' Lat: 16.20 PHT: 93.00 MVA PHT: 2.37 Decel [place]: 2.28 Aortic Valve AoV Pk Derrick: 1.62 AoV Mn Derrick: 1.14 AoV VTI: 0.36 AoV Pk Grad: 10.00 Aov Mn Grad: 6.00 GWEN Cont.VTI: 1.93 LVOT LVOT Pk Derrick: 1.13 LVOT Mn Derrick: 0.71 LVOT VTI: 0.22 LVOT Pk Grad: 5.00 LVOT Mn Grad: 2.00 LVOT Diam: 2.00 LVOT Area: 3.14 Diastolic Function MV Pk E: 0.72 MV Pk A: 1.10 E/A: 0.70 E'Medial: 4.68 E/E' Med: 15.50 E' Laterial: 4.46 E/E' Lat: 16.20 Right Ventricle TAPSE (mm): 20.70 TVS' Derrick: 9.90 Tricuspid Valve TR Pk Derrick: 1.79 TR Pk Grad: 13.00 RA Press: 3.00 RVSP: 16.00 Great Vessels Aorta Sinus of Valsalva: 3.70 2.0-3.5 cm Ao Asc: 3.80 2.1-3.4 cm Pulmonary Valve PV Pk Derrick: 1.13 Peak PV Grad: 5.00 Updated in Other Vendor System with Status of Final Marlo Dover MD electronically signed on 06/09/2023 11:13:14 AM with status of Final
== END ==
LOC: HO.CARD 12:45
PROVIDERS: PCP Physician Assistant Medical; Visit Provider Internal Medicine Cardiovascular Disease
DX: I25.5 Ischemic cardiomyopathy (principal)
CPT/HCPCS: 93306; 93356

== ENCOUNTER 2023-06-21 15:01 | Outpatient (AMB) | payer MEDICARE, SELFPAY ==
--- NOTE | 2023-06-21 15:07 | MHC.OFFVIS ---
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 Overall he has been doing well. He has been maintain active lifestyle. Denies any symptoms of exertional chest pain. No heart failure symptoms. Recent echocardiogram shows mild LV systolic dysfunction. Denies any claudication symptoms. Takes all his medications religiously. [facility] Medical History (Updated 06/23/23 @ 11:15 by Marlo Dover MD) CAD (coronary artery disease) Inferior myocardial infarction Ischemic cardiomyopathy PVD (peripheral vascular disease) Surgical History S/P angiogram of extremity (06/08/21) S/P cardiac catheterization Hx of cardiac cath Family History Father CVD (cardiovascular disease) Social History Patient Tobacco Use Status: Former Tobacco user Review of Systems Const Denies chills, Denies fatigue, Denies fever(s), Denies frequent falls, Denies weakness, Denies weight gain and Denies weight loss ENT Denies dizziness Card Denies chest pain, Denies leg edema, Denies lightheadedness, Denies palpitations, Denies dyspnea, Denies dyspnea on exertion, Denies orthopnea and Denies other (loss of consciousness) Resp Denies cough, Denies dyspnea and Denies dyspnea on exertion GI Denies hematochezia and Denies change in stool character Musc Denies abnormal gait, Denies muscle weakness, Denies numbness, Denies radiating pain into limb and Denies tingling Neuro Denies abnormal gait, Denies dizziness, Denies frequent falls, Denies numbness, Denies tingling and Denies weakness Endo Denies fatigue and Denies palpitations Physical Exam Vital Signs: Last Vital Signs Pulse 60 06/21/23 15:08 BP 120/74 06/21/23 15:08 BMI result Body Mass Index 26.6 Const General: cooperative, comfortable and no acute distress Orientation/consciousness: patient oriented x3 Neck Neck: Yes normal visual inspection and Yes no JVD Carotids: normal carotid upstroke Resp Effort & Inspection: normal respiratory effort Auscultation: clear to auscultation bilaterally, no crackles, no rales, no rhonchi and no wheezes Cardio Jugular venous distension: no JVD Rate: regular rate Rhythm: abnormal rhythm with ectopic beats Heart sounds: S1 normal heart sound present, S2 normal heart sound present, no gallops, no murmurs and no rubs GI Inspection: Yes normal to inspection Neuro General: patient oriented x3 Extrem General: Yes normal to inspection, No no pedal edema and No calf tenderness Office Procedures EKG Details: EKG shows normal sinus rhythm with T-wave changes in lateral leads suggestive of repolarization abnormality. [id number], Complete Assessment & Plan Assessment & Plan (1) Ischemic cardiomyopathy: Code(s): I25.5 - Ischemic cardiomyopathy Plan: Mild ischemic cardiomyopathy without overt signs of heart failure. At this point time continue aggressive medical therapy and neurohormonal modulation. Could not tolerate uptitration of neurohormonal in the past. Continue current therapy. Semi annual renal function test should be discussed. Discussed about risk of heart failure. Advised to maintain activity level as tolerated. Signs and symptoms of heart failure were discussed and advised to call me with any new symptoms. (2) CAD (coronary artery disease): Code(s): I25.10 - Atherosclerotic heart disease of [place] coronary artery without angina pectoris Plan: CAD as well as diffuse vascular disease. Currently asymptomatic at good workload. Advised to monitor for symptoms. Advised to call me with any anginal symptoms. Continue aggressive medical therapy. Lifelong aspirin therapy is advised. Continue high-intensity statin therapy. Most recent LDL was 69 mg/dL which is well optimized. Continue dietary modification. Will follow up in the clinic in 1 year's time, sooner p.r.n.. Thank you for allowing me to partake in his care Coding Level of Care Code Est Pt Level 4 (30535) Diagnoses Ischemic cardiomyopathy I25.5 CAD (coronary artery disease) I25.10 CPT Codes EKG - CPT: 38764-[id number], Complete ([id number])
[2023-06-21 15:08] VITALS: BP 120/74; PULSE 60; BMI 26.6
== END 2023-06-21 15:45 | disposition home or self-care (01) ==
PROVIDERS: Visit Provider Internal Medicine Cardiovascular Disease
DX: I25.5 Ischemic cardiomyopathy (principal); I25.10 Atherosclerotic heart disease of native coronary artery without angina pectoris
CPT/HCPCS: 93010; 99214

== ENCOUNTER → 2023-06-21 15:01 | Outpatient (BNVA) | payer MEDICARE, SELFPAY | PROVIDERS: Visit Provider Internal Medicine Cardiovascular Disease | DX: I25.5 Ischemic cardiomyopathy (principal); I25.10 Atherosclerotic heart disease of native coronary artery without angina pectoris | CPT/HCPCS: 93005; 99212 ==

== ENCOUNTER 2024-04-07 13:44 | Outpatient (REF) | payer MEDICARE, SELFPAY ==
--- NOTE | ~2024-04-07 | US_ITS ---
EXAMINATION: Noninvasive assessment of the bilateral lower extremities with ARTERIAL DUPLEX and ANKLE BRACHIAL INDICES (ABIs). CLINICAL INFORMATION: Peripheral vascular disease. History of prior left superficial femoral artery atherectomy and stenting TECHNIQUE: Duplex Doppler techniques with waveform analysis and measurement of velocities in the bilateral common femoral, profunda femoris, superficial femoral, popliteal and tibial arteries were performed. Additionally, ankle pulse volume recordings, ankle pressure measurements and ankle brachial indices were obtained of the lower extremity arterial system bilaterally. The study was performed only at rest. COMPARISON: Noninvasive and duplex arterial evaluations from 04/12/2022 and 03/08/2023 FINDINGS: DIRECT DUPLEX DOPPLER FINDINGS: RIGHT LEG: Common femoral artery: Greater than 450 cm/s, phasicity: Monophasic. Heavily calcified plaque Profunda femoris artery: 18.3 cm/s, phasicity: Monophasic Superficial femoral artery (proximal): 103 cm/s, phasicity: Monophasic. Diffuse calcified plaque Superficial femoral artery (mid): 177 cm/s, phasicity: Monophasic. The diffuse calcified plaque Superficial femoral artery (distal): 90.4 cm/s, phasicity: Monophasic. Diffuse calcified plaque Popliteal artery: 63.7 cm/s, phasicity: Monophasic Posterior tibial artery: 61.5 cm/s, phasicity: Monophasic Peroneal artery: Not visualized Anterior tibial artery: 15.9 cm/s, phasicity: Monophasic Dorsalis pedis artery: 14.2 cm/s, phasicity:Monophasic LEFT LEG: Common femoral artery: 92.6 cm/s, phasicity: Monophasic Profunda femoris artery: 32.8 cm/s, phasicity: Biphasic Superficial femoral artery (proximal): 64.4 cm/s, phasicity: Monophasic Stent extending from the proximal superficial femoral artery to the mid superficial femoral artery is patent on color flow. Velocity in the phasicity as follows: Proximal stent: 73.2 cm/s, monophasic Mid stent: 93.9 cm/s, monophasic Distal stent: 69.8 cm/s, monophasic Superficial femoral artery (mid): 103 cm/s, phasicity: Monophasic. Diffuse calcified plaque Superficial femoral artery (distal): 94.1 cm/s, phasicity: Monophasic. Diffuse calcified plaque Popliteal artery: 45.9 cm/s, phasicity: Monophasic Posterior tibial artery: 57.4 cm/s, phasicity: Monophasic Peroneal artery: 33.4 cm/s, phasicity: Monophasic Anterior tibial artery: 31.7 cm/s, phasicity: Monophasic Dorsalis pedis artery: 33.4 cm/s, phasicity: Monophasic ANKLE-BRACHIAL INDEX: Right: 0.69, previously 0.84 Left: 0.7, previously 0.76 ANKLE PRESSURES: Right: PT 68, DP 108 Left: PT 78, DP 110 ANKLE PVR WAVEFORMS: Right: Abnormal Left: Abnormal US/US arterial duplex BI w/ SVEN IMPRESSION: RIGHT LEG: Severe stenosis of the right common femoral artery with elevated velocity and monophasic waveforms. Diffuse calcified plaque throughout the right superficial femoral artery with relatively elevated velocities especially in the mid superficial femoral artery consistent with diffuse moderate stenosis. More dampened monophasic waveforms in the below-knee runoff vessels. No significant change compared to the prior exam. Ankle-brachial index is stable. LEFT LEG: Patent stent in the left superficial femoral artery with monophasic waveforms throughout the left lower extremity. Diffuse calcified plaque throughout the left lower extremity with monophasic waveforms with otherwise patent flow. No significant change compared to the prior exam. Ankle-brachial index is stable Electronically signed by: Jose David El MD 04/10/2024 02:17 PM EDT
== END 2024-04-07 13:45 | disposition home or self-care (01) ==
LOC: HO.US 13:44
PROVIDERS: PCP Physician Assistant Medical; Visit Provider Surgery Vascular Surgery
DX: Z13.89 Encounter for screening for other disorder (principal)

== ENCOUNTER 2024-05-06 14:07 | Outpatient (AMB) | payer MEDICARE, SELFPAY ==
--- NOTE | 2024-05-06 14:10 | MHC.OFFVIS ---
Intake Visit Reasons: 1 yr follow up Arterial 04/07/24 Intake Note: Patient presents for 1 year arterial follow up. Patient states he has had some cramping in his right leg. No other complaints Allergies No Known Allergies Allergy (Verified 05/06/24 14:10) HPI HPI 1 yr follow up Arterial 04/07/24: Details: Very pleasant 73-year-old gentleman presents for routine arterial surveillance. He reports that he is doing fairly well. He walks 2-3 blocks and then starts having some difficulty right more than left with occasional calf pain. 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 Of note he occasionally smokes a cigar but not is not a cigarette smoker. In addition he is a nondiabetic. He is being maintained on aspirin and high-dose statin. [facility] Medical History CAD (coronary artery disease) Inferior myocardial infarction Ischemic cardiomyopathy PVD (peripheral vascular disease) Surgical History S/P angiogram of extremity (06/08/21) S/P cardiac catheterization Hx of cardiac cath Family History Father CVD (cardiovascular disease) Social History Patient Tobacco Use Status: Former Tobacco user Review of Systems Const All systems reviewed & are unremarkable except as noted in HPI and below Reports no additional complaints ENT Reports Normal hearing present Card Denies chest pain, Denies chest pain at rest, Denies chest pain with activity and Denies pedal edema Resp Denies cough GI Denies abdominal pain Musc Denies abnormal gait, Denies muscle cramps and Denies radiating pain into limb Skin/Breast Denies skin ulcer and Denies wounds Neuro Reports Normal hearing present and Denies abnormal gait Psych Reports no additional complaints Physical Exam Const General: cooperative, healthy appearing and comfortable Orientation/consciousness: oriented to person, oriented to place and oriented to time HEENT Head: Yes normal to inspection Neck Neck: Yes normal visual inspection Carotids: no bruits Chest Chest palpation & inspection: normal inspection of the chest Resp Effort & Inspection: normal respiratory effort and able to speak in complete sentences Auscultation: clear to auscultation bilaterally, no crackles, no rales, no rhonchi and no wheezes Cardio Rate: regular rate Rhythm: regular rhythm Heart sounds: S1 normal heart sound present and S2 normal heart sound present Bruits: no carotid bruits Peripheral pulses: Peripheral pulses 2+ throughout GI Inspection: Yes normal to inspection Skin Wounds: no wounds Hair: normal Neuro General: oriented to person, oriented to place and oriented to time Cranial nerves: Yes CN's II-XII intact bilaterally and Yes Normal hearing present Cognition (Neuro): normal cognition Motor exam (neuro): 5/5 motor strength present throughout Extrem Other: venous exam: No significant superficial varicosities or spider telangiectasias, minimal edema General: No clubbing, No cyanosis and No edema Psych Appearance: grossly normal Mental Status: mental status grossly normal Speech and movement: Normal speech and movement present Results Reviewed Results Reviewed: Noninvasive arterial testing dated 04/07/2024 demonstrates SVEN on the right of 0.69 and on the left of 0.7. Assessment & Plan Assessment & Plan (1) PVD (peripheral vascular disease): Comment: 05/15/2021 - atherectomy and stent of left SFA, plasty of left SFA with DCB Code(s): I73.9 - Peripheral vascular disease, unspecified Category: Medical Plan: In short patient has stable claudication. I did review the pathophysiology of peripheral vascular disease with the patient. In addition we did discuss routine conservative measures including a healthy diet and the importance of exercise and ambulation. We did discuss risk factor modification. The patient will continue to to follow-up with surveillance follow-up in approximately 1 year. Thank you for allowing us to participate in this patient's care. If there are any questions or concerns please do not hesitate to contact us. Please note a longitudinal relationship has been created with the patient and we have been following and surveillance this chronic condition. Orders: Orders US arterial duplex LE BI 1 Year I73.9 - Peripheral vascular disease, unspecified Coding Level of Care Code Est Pt Level 4 (87089) Complex EM visit Add On G2211 Diagnoses PVD (peripheral vascular disease) I73.9
== END 2024-05-06 14:34 | disposition home or self-care (01) ==
PROVIDERS: PCP Physician Assistant Medical; Visit Provider Surgery Vascular Surgery
DX: I73.9 Peripheral vascular disease, unspecified (principal)
CPT/HCPCS: 99214; G2211

== ENCOUNTER → 2024-05-06 14:07 | Outpatient (BNVA) | payer MEDICARE, SELFPAY | PROVIDERS: PCP Physician Assistant Medical; Visit Provider Surgery Vascular Surgery | DX: I73.9 Peripheral vascular disease, unspecified (principal) | CPT/HCPCS: 99212 ==

== ENCOUNTER 2024-06-24 14:34 | Outpatient (AMB) | payer MEDICARE, SELFPAY ==
[2024-06-24 14:37] VITALS: BP 138/78; PULSE 63; BMI 27.0
--- NOTE | 2024-06-24 14:37 | A.OFFVIS_ITS ---
Vital Signs 06/24/24 14:37 Height 6 ft 4 in Weight 222 lb 3.615 oz BMI 27.0 BP 138/78 Blood Pressure Location Lt brachial Position Sitting Pulse 63 Intake Visit Reasons: ! year fu Intake Note: 1 year F/U. Pt doing good. Psych Social Worker Required: No Accompanied by: Self / Same As Patient Allergies No Known Allergies Allergy (Verified 05/06/24 14:10) Medication List - Last Reconciled 06/24/24 by Marlo Dover MD aspirin (Adult Low Dose Aspirin) 81 mg PO DAILY atorvastatin 80 mg PO DAILY cilostazol 100 mg (2 x 50 mg) PO BID metformin 500 mg PO DAILY metoprolol succinate ER 25 mg PO DAILY valsartan 40 mg PO DAILY HPI Comments Details: Trent comes for follow-up. He remains limited with claudication. He is currently symptoms of bilateral leg discomfort more common in her right side with walking up to 2 blocks. Followed by vascular surgery. Taking all his medications. Denies any exertional chest pain. No shortness of breath, orthopnea, PND. Recently noted to have elevated hemoglobin A1c and was told to start on other new therapy, he is leaning towards Jardiance. [facility] Medical History CAD (coronary artery disease) Inferior myocardial infarction Ischemic cardiomyopathy PVD (peripheral vascular disease) Surgical History S/P angiogram of extremity (06/08/21) S/P cardiac catheterization Hx of cardiac cath Family History Father CVD (cardiovascular disease) Social History Alcohol intake: current Alcohol intake frequency: holidays/special occasions only Patient Tobacco Use Status: Former Tobacco user Review of Systems Const Denies chills, Denies fatigue, Denies fever(s), Denies weight gain and Denies weight loss ENT Denies dizziness Card Denies chest pain, Denies leg edema, Denies lightheadedness, Denies pa lpitations, Denies dyspnea on exertion, Denies orthopnea and Denies other Resp Denies cough and Denies dyspnea on exertion GI Denies hematochezia and Denies change in stool character Musc Denies abnormal gait, Denies muscle weakness, Denies numbness, Denies radiating pain into limb and Denies tingling Neuro Denies abnormal gait, Denies dizziness, Denies numbness and Denies tingling Endo Denies fatigue and Denies palpitations Physical Exam Vital Signs: Last Vital Signs Pulse 63 06/24/24 14:37 BP 138/78 06/24/24 14:37 BMI result Body Mass Index 27.0 Const General: cooperative, comfortable and no acute distress Orientation/consciousness: patient oriented x3 Neck Neck: Yes normal visual inspection and Yes no JVD Carotids: normal carotid upstroke Resp Effort & Inspection: normal respiratory effort Auscultation: clear to auscultation bilaterally, no crackles, no rales, no rhonchi and no wheezes Cardio Jugular venous distension: no JVD Rate: regular rate Rhythm: abnormal rhythm with ectopic beats Heart sounds: S1 normal heart sound present, S2 normal heart sound present, no gallops, no murmurs and no rubs GI Inspection: Yes normal to inspection Neuro General: patient oriented x3 Extrem General: Yes normal to inspection, No no pedal edema and No calf tenderness Office Procedures EKG Details: EKG shows normal sinus rhythm with small inferior Q-waves with ST T wave changes inferior inferolateral leads suggestive of repolarization abnormality [id number], Complete Assessment & Plan Assessment & Plan (1) Ischemic cardiomyopathy: Code(s): I25.5 - Ischemic cardiomyopathy Category: Medical Plan: Ischemic cardiomyopathy with mild LV systolic dysfunction without signs or symptoms of heart failure. Continue aggressive risk factor modification. Continue current neurohormonal modulation with metoprolol and valsartan. Can not uptitrate due to prior history of lightheadedness. Signs and symptoms of heart failure were discussed. Jardiance is a good therapy although he does not have any signs or symptoms of heart failure but will help with management and/or prevention of heart failure syndrome. Follow-up echocardiogram near future. Advised to call me with any worsening symptoms. (2) CAD (coronary artery disease): Code(s): I25.10 - Atherosclerotic heart disease of [place] coronary artery without angina pectoris Category: Medical Plan: Diffuse and significant coronary disease as well as peripheral vascular disease. Continue low-dose aspirin therapy. Also on cilostazol therapy. Continues to have symptoms of claudication. Consider interventional therapy if he remains symptomatic. Currently on high-intensity statin therapy. Target goal LDL closer to 55 mg/dL. Agree with addition of additional diuretic and sugar lowering therapy. Either SGLT2 or GLP 1 antagonist are indicated. Continue aggressive blood pressure control which is currently well optimized. Encouraged to maintain activity level as tolerated. Advised to call me with new symptoms. Will follow up in the clinic in 1 year's time, sooner p.r.n.. Thank you for all owing me partake in his care Orders: Orders CA echo transthoracic complete Today I25.5 - Ischemic cardiomyopathy Coding Level of Care Code Est Pt Level 4 (78549) Complex EM visit Add On G2211 Diagnoses Ischemic cardiomyopathy I25.5 CAD (coronary artery disease) I25.10 CPT Codes EKG - CPT: [id number], Complete ([id number])
== END 2024-06-24 15:22 | disposition home or self-care (01) ==
PROVIDERS: PCP Physician Assistant Medical; Visit Provider Internal Medicine Cardiovascular Disease
DX: I25.5 Ischemic cardiomyopathy (principal); I25.10 Atherosclerotic heart disease of native coronary artery without angina pectoris
CPT/HCPCS: 93010; 99214; G2211

== ENCOUNTER → 2024-06-24 14:34 | Outpatient (BNVA) | payer MEDICARE, SELFPAY | PROVIDERS: PCP Physician Assistant Medical; Visit Provider Internal Medicine Cardiovascular Disease | DX: I25.5 Ischemic cardiomyopathy (principal); I25.10 Atherosclerotic heart disease of native coronary artery without angina pectoris | CPT/HCPCS: 93005; 99212 ==

== ENCOUNTER → 2024-08-01 14:51 | Outpatient (REF) | payer MEDICARE, SELFPAY ==
--- OUTSIDE RECORDS SUMMARY | 2024-08-01 14:53 | XMS_ITS ---
Author Name [facility] Organization Unknown History of Medication Use Medication Directions Dispensed Refills Start Date End Date [facility] valacyclovir 1 gram tablet TAKE 2 TABLETS BY MOUTH TWICE DAILY FOR 1 DAY 08/25/2023 active atorvastatin 80 mg tablet TAKE 1 TABLET BY MOUTH DAILY 08/25/2023 active cilostazol 50 mg tablet TAKE 2 TABLET BY MOUTH TWICE DAILY FOR 90 DAYS 08/25/2023 active metformin 500 mg tablet TAKE 1 TABLET BY MOUTH DAILY WITH BREAKFAST 08/25/2023 active metoprolol succinate ER 25 mg tablet,extended release 24 hr TAKE 1 TABLET BY MOUTH DAILY 08/25/2023 active valsartan 40 mg tablet TAKE 1 TABLET BY MOUTH DAILY 08/25/2023 active diclofenac 1 % topical gel APPLY 4 GRAMS TOPICALLY TO THE AFFECTED AREA FOUR TIMES DAILY NEEDED FOR ARTHRITIS PAIN 08/25/2023 active Problems Problem Status Onset Date Problem Type Date of Resoluti on Source Swelling of lower leg active 2023-08-23 ProblemAct ENS_AONECT Sprain of right ankle active 2023-08-23 ProblemAct ENS_[facility]
--- NOTE | 2024-08-01 14:54 | CA_ITS ---
Transthoracic Echocardiogram Patient (Last, First, Middle): Eron Escudero, Gender: Male Date of : 1950 Age: 74 Procedure Date: 08/01/2024 Procedure Type: Transthoracic Echocardiogram Location: OP Height: 193.04 cm Weight: 99.79 kg BSA: 2.31 m2 Heart Rate: 62 bpm BP: 138 / 78 mmHg Log Sorter: ZACH Referring MD: Marlo Dover MD Symptoms: I25.5 - Ischemic cardiomyopathy Study Quality: Adequate ECG Rhythm: Sinus Conclusions: - The left ventricular systolic function is mildly decreased. The calculated ejection fraction is 47% by biplane method. - No obvious valvular pathology seen on this study. Findings Left Ventricle Moderately increased left ventricular cavity size. The left ventricular systolic function is mildly decreased. The calculated ejection fraction is 47% by biplane method. There is mild global hypokinesis. Evidence suggests grade I (mild) diastolic dysfunction. There is mild septal asymmetric hypertrophy. Right Ventricle Normal right ventricular cavity size and systolic function. Atria Both atria are normal in size. Aortic Valve There is a normal trileaflet aortic valve. There is mild calcification of the aortic valve. There is no aortic valve stenosis. There is no aortic valve regurgitation. Mitral Valve The mitral valve appears normal. There is no mitral valve regurgitation. There is no mitral valve stenosis. Pulmonic Valve The pulmonic valve is likely normal. Tricuspid Valve Normal tricuspid valve structure. There is trace tricuspid valve regurgitation. There is no evidence of pulmonary hypertension. Great Vessels The asc aorta is normal in size. Venous The inferior vena cava is normal in size and collapses greater than 50% with inspiration. Pericardium/Pleural There is no evidence of pericardial effusion. Prior Study Comparison No significant change compared to prior study dated: 06/08/2023. Recommendations, Care & Conclusions No obvious valvular pathology seen on this study. Measurements 2D Linear Measurements IVSd: 1.07 0.6-0.9/0.6-1.0 cm LVIDd: 6.31 3.9-5.3/4.2-5.9 cm LVIDd Index: 2.73 2.4-3.2/2.2-3.1 cm/m2 LVIDs: 4.45 2.0-3.6 cm LVPWd: 0.91 0.7-1.1 cm LA Diam: 4.60 2.7-3.8/3.0-4.0 cm LAIDs Index: 1.99 1.5-2.3 cm/m2 LV Mass: 330.58 67-162/88-224 g LV Mass Index: 143.11 43-95/49-115 g/m2 LVOT Diam: 2.50 3.0+(-)1.3 cm 2D Systolic Function EF 4C: 42.50 >55% EF 2C: 50.10 >55% EF BiP: 46.50 >55% Mitral Valve MV Pk E: 0.60 MV PK A: 1.05 MV Decel Time: 381.00 E/A: 0.60 E'Lateral: 3.59 E'Medial: 3.92 E/E' Med: 15.40 E/E' Lat: 16.80 PHT: 112.00 MVA PHT: 1.96 Decel [place]: 1.58 Aortic Valve AoV Pk Derrick: 1.37 AoV Pk Grad: 8.00 GWEN: 3.91 LVOT LVOT Pk Derrick: 1.10 LVOT Mn Derrick: 0.64 LVOT VTI: 0.22 LVOT Pk Grad: 5.00 LVOT Mn Grad: 2.00 LVOT Diam: 2.50 LVOT Area: 4.91 Diastolic Function MV Pk E: 0.60 MV Pk A: 1.05 E/A: 0.60 E'Medial: 3.92 E/E' Med: 15.40 E' Laterial: 3.59 E/E' Lat: 16.80 Right Ventricle TAPSE (mm): 22.80 TVS' Derrick: 13.20 Great Vessels Aorta Sinus of Valsalva: 3.50 2.0-3.5 cm Ao Asc: 3.50 2.1-3.4 cm Pulmonary Valve PV Pk Derrick: 0.92 Peak PV Grad: 3.00 Updated in Other Vendor System with Status of Final Danny Monroe MD electronically signed on 08/03/2024 10:37:08 AM with status of Final
== END ==
LOC: HO.CARD 14:51
PROVIDERS: PCP Physician Assistant Medical; Visit Provider Internal Medicine Cardiovascular Disease
DX: I25.5 Ischemic cardiomyopathy (principal)
CPT/HCPCS: 93306

== ENCOUNTER → 2024-08-01 14:54 | Outpatient (BNV) | payer MEDICARE, SELFPAY | PROVIDERS: PCP Physician Assistant Medical; Visit Provider Internal Medicine | DX: I25.5 Ischemic cardiomyopathy (principal) | CPT/HCPCS: 93306 ==

== ENCOUNTER 2024-12-09 12:52 | Outpatient (AMB) | payer MEDICARE, SELFPAY ==
--- NOTE | 2024-12-09 13:04 | MHC.OFFVIS ---
Intake Visit Reasons: RT leg swelling/discomfort 3-4m Intake Note: Patient presents for right leg swelling and discomfort. Right foot and leg are red and swollen. Foot started turning red in the last few weeks. Accompanied by: Self / Same As Patient Allergies No Known Allergies Allergy (Verified 12/09/24 13:06) HPI HPI RT leg swelling/discomfort 3-4m: Details: The patient is a 74-year-old male presenting with right lower extremity swelling and cramping. He reports experiencing progressive swelling and pain on ambulation in the right leg, which worsens with physical activity and prolonged standing, particularly following a period of increased exertion such as playing golf. Despite attempts to alleviate symptoms with rest and elevation, the swelling persists. An Ankle-Brachial Index test last year showed a right leg reading of 0.69, indicating worsening peripheral artery disease. The left leg was previously treated for similar issues with an atherectomy and stent in 2020. Orthopedic evaluations noted arthritis without acute structural findings. Attempted management with compression stockings was not effective. [facility] Medical History CAD (coronary artery disease) Inferior myocardial infarction Ischemic cardiomyopathy PVD (peripheral vascular disease) Surgical History S/P angiogram of extremity (06/08/21) S/P cardiac catheterization Hx of cardiac cath Family History Father CVD (cardiovascular disease) Social History Alcohol intake: current Alcohol intake frequency: holidays/special occasions only Patient Tobacco Use Status: Former Tobacco user Review of Systems Const All systems reviewed & are unremarkable except as noted in HPI and below Reports no additional complaints ENT Reports Normal hearing present Card Denies chest pain, Denies chest pain at rest, Denies chest pain with activity and Denies pedal edema Resp Denies cough GI Denies abdominal pain Musc Denies abnormal gait, Denies muscle cramps and Denies radiating pain into limb Skin/Breast Denies skin ulcer and Denies wounds Neuro Reports Normal hearing present and Denies abnormal gait Psych Reports no additional complaints Physical Exam Const General: cooperative, healthy appearing and comfortable Orientation/consciousness: oriented to person, oriented to place and oriented to time HEENT Head: Yes normal to inspection Neck Neck: Yes normal visual inspection Carotids: no bruits Chest Chest palpation & inspection: normal inspection of the chest Resp Effort & Inspection: normal respiratory effort and able to speak in complete sentences Auscultation: clear to auscultation bilaterally, no crackles, no rales, no rhonchi and no wheezes Cardio Other: Bilateral DP signals Rate: regular rate Rhythm: regular rhythm Heart sounds: S1 normal heart sound present and S2 normal heart sound present Bruits: no carotid bruits GI Inspection: Yes normal to inspection Skin Wounds: no wounds Hair: normal Neuro General: oriented to person, oriented to place and oriented to time Cranial nerves: Yes CN's II-XII intact bilaterally and Yes Normal hearing present Cognition (Neuro): normal cognition Motor exam (neuro): 5/5 motor strength present throughout Extrem Other: venous exam: +1 edema right General: No clubbing, No cyanosis and Yes edema Psych Appearance: grossly normal Mental Status: mental status grossly normal Speech and movement: Normal speech and movement present Results Reviewed Results Reviewed: Prior arterial testing from 03/18/2024 demonstrates SVEN on the right of 0.69 and on the left of 0.7 which demonstrates progressive deterioration Assessment & Plan Assessment & Plan (1) PVD (peripheral vascular disease): Comment: 05/15/2021 - atherectomy and stent of left SFA, plasty of left SFA with DCB Code(s): I73.9 - Peripheral vascular disease, unspecified Category: Medical Plan: I discussed with the patient the likelihood of worsening peripheral artery disease and the need for further evaluation through an ultrasound of the right lower extremity. We reviewed possible management options, including the risk and benefit of further invasive evaluation if the ultrasound suggests significant arterial blockage. I emphasized the importance of addressing his cramping and the limitations it places on his activities, noting that while improved circulation may help, it may not completely alleviate all symptoms. I explained the expected follow-up plan based on the results, and the patient understands the necessity for periodic monitoring. Consent for non-invasive diagnostic testing was obtained, and the patient agreed to proceed with the recommended plan. Plan Patient was informed and verbally consented to the use of an ambient scribe for clinic note documentation during this visit. Orders: Orders US arterial duplex LE RT 1 Week I73.9 - Peripheral vascular disease, unspecified Patient Instructions: - Schedule an ultrasound of the right leg within the next week. - Monitor symptoms and note any changes in swelling or cramping. - Elevate the leg when possible to alleviate swelling. - Follow up with me after the ultrasound to discuss results and further management. - Report any severe increase in pain or swelling to the office immediately. Coding Level of Care Code Est Pt Level 4 (67824) Complex EM visit Add On G2211 Diagnoses PVD (peripheral vascular disease) I73.9
--- OUTSIDE RECORDS SUMMARY | 2024-12-09 14:43 | XMS_ITS | Encounter Summary ---
Author Organization [facility] [place] [address] Care Team Providers Care Lab Scientist Name Role Phone Moses Duran Primary Care Provider [phone] Encounter Details Date Type Department Care Team (Late st Contact Info) Description 11/04/2024 Telephone Adult Medicine [facility] [address] [place] [phone] Moses Duran PA [address], [place] [id number] Social History Tobacco Use Types Packs/Day Years Used Date Smoking Tobacco: Former Cigarettes Q uit: 08/13/2012 Smokeless Tobacco: Former Quit: 10/22/2010 Alcohol Use Standard Drinks/Week Comments Yes 8.3 (1 standard drink = 0.6 oz p ure alcohol) Housing Instability Answer Date Recorde d Are you worried that in the next 2 months you may not have stable housing? No 10/30/2024 Food Access & Nutrition Answer Date Rec orded Do you have access to a vari ety of food including fruits and vegetables? Yes 10/30/2024 Financial Risk Answer Date Recorded How hard is it for you to pa y for the very basics like food, housing, medical care, and air conditioning / heating? Not very hard 10/30/2024 Transportation Answer Date Recorded Has the lack of transportati on kept you from meetings, work, or from getting things needed for daily living? No Has the lack of transportati on kept you from medical appointments or from getting medications? No 10/30/2024 Social Isolation Answer Date Recorded How often do you feel lonely or isolated from th ose around you? Never 10/30/2024 Food Risk Answer Date Recorded Within the past 12 months we worried whether our food would run out before we got money to buy more. Never true 10/30/2024 Within the past 12 months th e food we bought just didn't last and we didn't have money to get more. Never true 10/30/2024 Dependent Care Answer Date Recorded Do you need help finding or paying for care for your loved ones. For example, child therapist or elderly care for an older adult? No 10/30/2024 Education Answer Date Recorded Do you think completing more education or training, like finishing a GED, going to college, or learning a trade, would be helpful for you? N/A 10/30/2024 Employment and Income Answer Date Recor ded During the last four weeks, have you been actively looking for work? No 10/30/2024 Living Situation Answer Date Recorded What is your living situation? 0 10/30/2024 Sex and Gender Information Value Date Recorded Sex Assigned at Not on file Legal Sex Male 10:50 AM EST Gender Identity Not on file Sexual Orientation Not on file documented as of this encounter Plan of Treatment Upcoming Encounters Date Type Department Care Team (Late st Contact Info) Description 01/14/2025 12:30 PM EDT Appointment [facility] [address] [place] [phone] Jb Gage MD [address] [address] 04/07/2025 3:30 PM EDT Office Visit Adult Medicine [facility] [address] [place] [address] Moses Duran PA [address], [place] documented as of this encounter Visit Diagnoses Not on filedocumented in this encounter Additional Health Concerns Assessment Noted Time PHQ-9 Depression Total Score: 0 10/31/19 25 9:42 AM EDT documented as of this encounter Care Teams Lab Scientist Relationship Specialty Start Date End Date Moses Duran PA [address] [place] [address] PCP - General Internal Medicine 10/19/20 documented as of this encounter
--- OUTSIDE RECORDS SUMMARY | 2024-12-09 14:43 | XMS_ITS | Data Portability ---
Author Organization [facility]AL [facility] [address] Address [address] [place] [address] Assessment No assessment recorded. Plan of Treatment Reminders Order Date Submit Date Provider Last Modified By Organization Details Last Modified Time Details Appointments None recorded. Lab None recorded. Referral orthopedic surgeon referral - avulsion fracture right lateral malleolus. need further evaluation and treatment. 2022 023 [email or web address] [facility], [address], [place], [address], 08:17:51 Procedures None recorded. Surgeries None recorded. Imaging XR, ankle, 3 or more view 2022 023 NATHAN [facility], [address] [place], [address], 17:52:34 XR, foot, 3 or more view 2022 023 [facility], [address] [place], [address], 17:52:26 Medication Orders None recorded. Patient TargetsNo targets recorded. Patient Instructions Encounter Date Encounter Id Patient Instructions Last Modified By Organization Details Last Modified Time 07/02/2023 [id number] foot pain: care instructions deb Not available 07/02/2023 17:32:37 Discussed medication regimen as well as diet and exercise modification. Patient will apply heat/ice as needed for pain relief. Follow up in 3 months. deb Not available 07/02/2023 17:31:46 ice or heat to area whichever feels better elevate affected area if it is a limb alternate ibuprofen, 4 hours later tylenol, 4 hours later back to ibuprofen may wrap for extra support wear tennis shoes or good arch supportive shoes start drawing your ABCs with your injured ankle to help strengthen the ligaments and tendons SEE FAMILY DOCTOR IF PAIN PERSISTS AFTER THE ABOVE TREATMENT--YOU MAY NEED PHYSCIAL THERAPY OR POSSIBLE MRI WITH REFERRAL TO SPECIALIST deb Not available 07/02/2023 16:43:42 Reason for Referral Orthopedic Surgeon Referral for Closed fracture of lateral malleolus avulsion fracture right lateral malleolus. need further evaluation and treatment. avulsion fracture right lateral malleolus. need further evaluation and treatment. Referring Physician: Luis Eduardo Henderson, Urgent Care, Encounter Date: 07/02/2023 Results Created Date Observation Date Name Description Value Unit Range Abnormal Flag Note LastModifiedBy Organization Detail LastModifiedTime 07/02/20 23 07/02/2023 XR, foot, 3 or more view No observ ation record ed. deb [facility] [address] [place], [address], 07/02/2023 17:54:07 07/02/20 23 07/02/2023 XR, ankle , 3 or more view No observ ation record ed. [email or web address] [facility] [address] [place], [address], 07/02/2023 17:54:07 Result Notes None recorded. Problems Name Problem SNOMED Code Status Onset Date Resolution Date Notes Provider Name and Address Organization Details Recorded Time Hypertensive disorder 70973607 Active DENITA MINEO null, PA - [facility] 3 16:30:37 Diabetes mellitus 10990274 Active DENITA MINEO null, PA - [facility] 3 16:30:45 Hyperlipidemia 70901343 Active DENITA MINEO null, PA - [facility] 3 16:31:06 Heart disease 37156156 Active DENITA MINEO null, PA - [facility] 3 16:31:37 Problem Notes None recorded. Procedures Surgical History Date Name Laterality Status Provider Name and Address Organization Details Recorded Time Knee arthroscopy/myra benedicto completed DENITA OSORIO PA - [facility] 07/02/2023 16:33:04 insertion of stent into vein completed DENITA OSORIO PA - [facility] 07/02/2023 16:33:38 Imaging Results Imaging Date Name Status LastModified by Organiz ation Details LastModified Time 07/02/2023 XR, foot, 3 or more view [facility] [address] [place], [address], 07/02/2023 17:54:07 07/02/2023 XR, ankle, 3 or more view completed [email or web address] [address] [place], [address], 07/02/2023 17:54:07 Procedure Notes None recorded. Medical Equipment None Reported. Allergies No known drug allergies Medications Name Sig Start Date Stop Date Status Note LastModified by Organization Details LastModified Time metformin 500 mg tablet TAKE 1 TABLET BY MOUTH DAILY WITH BREAKFAST active Not Available Not Available No t Available atorvastatin 80 mg tablet TAKE 1 TABLET BY MOUTH DAILY active Not Available Not Available No t Available clindamycin HCl 300 mg capsule TAKE 1 CAPSULE BY MOUTH FOUR TIMES DAILY DIRECTED active Not Available Not Available No t Available cilostazol 50 mg tablet TAKE 2 TABLET BY MOUTH TWICE DAILY FOR 90 DAYS active Not Available Not Available No t Available valacyclovir 1 gram tablet TAKE 2 TABLETS BY MOUTH TWICE DAILY FOR 1 DAY active Not Available Not Available No t Available metoprolol succinate ER 25 mg tablet,extend ed release 24 hr TAKE 1 TABLET BY MOUTH DAILY active Not Available Not Available No t Available valsartan 40 mg tablet TAKE 1 TABLET BY MOUTH DAILY active Not Available Not Available No t Available diclofenac 1 % topical gel APPLY 4 GRAMS TOPICALLY TO THE AFFECTED AREA FOUR TIMES DAILY NEEDED FOR ARTHRITIS PAIN active Not Available Not Available No t Available Vitals Date Recorded Body height Body mass index (BMI) Body weight Oxygen saturation Oxygen saturation in Arterial blood by Pulse oximetry Heart rate Respiratory rate Body temperature Systolic blood pressure Diastolic blood pressure Systolic blood pressure Diastolic blood pressure Provider Name and Address Organization Details Last Updated DateTime 3 193.04 cm 26.8 kg/m2 90127.3 2 g 100 % 100 % 65 /min 18 /min 98.5 [degF] 180 mm[Hg] 78 mm[Hg] 152 mm[Hg] 85 mm[Hg] DENITA OSORIO PA - [facility] 17:13:42 Social History Question Answer Notes LastModified by Organizat ion Details LastModified Time Tobacco Smoking Status Former Smoker DENITA OSORIO null, PA - [facility] 07/02/2023 16:32:29 What Is Your Level Of Alcohol Consumption? Moderate Information not available 07/02/2023 Do You Use Any Illicit Or Recreational Drugs? No Information not available 07/02/2023 Do You Or Have You Ever Used Any Other Forms Of Tobacco Or Nicotine? No Information not available 07/02/2023 Sex: Unknown Functional Status None recorded. Mental Status None recorded. Family History Nothing Reported. Medical History No medical history recorded. Past Encounters Encounter ID Performer Location Encounter Start Date Encounter Closed Date Diagnosis/Indication Diagnosis SNOMED-CT Code Diagnosis ICD10 Code Diagnosis Note [id number] [address] [facility] [address] [place] [address] 07/14/2021 15:12:08 07/14/2021 17:29:03 [id number] [place] [address] [place] [address] 07/02/2023 16:17:47 07/02/2023 17:36:19 Sprain of right ankle 5488313289 1537224 S93.401A Pain in right foot 92682 12449 07915 M79.671 Closed fra cture of lateral malleolus 95909426 S82.61XA Health Concerns Section Related Observation LastModified by Organization Detai ls LastModified Time None Recorded Concern Status LastModified by Organization Details LastModified Time None Recorded Advance Directives Directive None Recorded Payers Encounter Date Sequence Insurance Name Policy Number Policy Vincent Covered Member ID Vincent Member ID Guarantor Name 07/14/2021 1 [facility] (MEDICARE REPLACEMENT/A DVANTAGE - PPO) [id number] Eron Castanedaj [id number] Eron Castanedaj 07/02/2023 1 [facility] (MEDICARE REPLACEMENT/A DVANTAGE - PPO) [id number] Eron Collazo Znoj [id number] Eron Znoj Notes Date Note Type Note Provider Name and Address Organization Details Recorded Time 3 text/html Foot / AnkleReported bypatient.source of patient informationInformation obtained from patient; Patient arrived at Urgent Care ambulatory; learning styles: auditory; 72 year old male presented stating he does not remember when he twisted his right ankle as he play golf all the time but now he ia developing pain in his right foot lateral side . he also complained about swelling on right ankle more then left. denies any previous ankle fracture or arthritis history. Denies any trauma. Location:ankle; right Probleminjury; swelling Severity:mild Duration:3 weeks Context:cannot identify; sports injury Associated Symptoms:no weakness; no numbness; no tingling; no warmth; no ecchymosis;swelling;redness Aggravating factors:walking Alleviating factors:rest; elevation; heat; ice; limited weight bearing Assistive devicesAce bandage Previous InjuryNo prior injury to affected body part Previous Treatmentnone Prior Imaging:none Luis Eduardo Henderson NP [address] [place], [address], [place] - [facility] 07/02/2023 18:04:20
--- OUTSIDE RECORDS SUMMARY | 2024-12-09 14:43 | XMS_ITS | Clinical Summary ---
Author Organization [facility] [address] [facility] Address [address] [place] [address] Phone Care Team Providers Care Biology Tutor Name Role Phone Moses Duran Primary Care Provider [phone] Allergies No known active allergies Medications aspirin 81 mg chewable tablet Chew 1 tablet (81 mg total) 1 (one) time each day. Active cilostazoL (PLETAL) 50 mg tablet Take 2 tablets (100 mg total) by mouth 2 (two) times a day. Active diclofenac (VOLTAREN) 1 % topical gel Apply 4 g topically 4 (four) times a day. Active metFORMIN (GLUCOPHAGE) 500 mg tablet Take 1 tablet (500 mg total) by mouth 1 (one) time each day with breakfast. Active metoprolol succinate (TOPROL-XL) 25 mg 24 hr tablet Take 1 tablet (25 mg total) by mouth 1 (one) time each day. 4 Active tadalafiL (CIALIS) 20 mg tablet Take 0.5 tablets (10 mg total) by mouth at bedtime as needed for erectile dysfunction. 2 Active valsartan (DIOVAN) 40 mg tablet Take 1 tablet (40 mg total) by mouth 1 (one) time each day. 4 Active atorvastatin (LIPITOR) 80 mg tablet TAKE 1 TABLET BY MOUTH DAILY 90 tablet 5 Active empagliflozin (JARDIANCE) 25 mg tablet Take 1 tablet (25 mg total) by mouth 1 (one) time each day. 90 tablet 3 5 Active Active Problems Problem Noted Date Diagnosed Date Benign prostatic hyperplasia 06/01/2023 Herpes simplex 06/01/2023 History of 2019 novel coronavirus disease (COVID -19) 09/13/2021 Claudication ([facility] V24) 12/15/2020 Stage 3a chronic kidney disease ([facility] V24, CM S/[facility] V28) 12/15/2020 Varicose veins of left leg with edema 12/17/2018 Depression 08/05/2012 Type 2 diabetes, diet controlled ([facility] V24, C MD/[facility] V28) 02/02/2012 Peripheral vascular disease ([facility] V24) 2008 Herniated lumbar intervertebral disc 01/15/2008 Coronary atherosclerosis of [place] coronary vess el 06/04/2007 Overview (07/03/2024): Followed by dr. sim Prev Cath did need intervention Pure hypercholesterolemia 10/18/2006 Encounters Date Type Department Care Team Description 11/14/2024 Telephone Adult Medicine [address] [phone] Moses Duran, PA provider call back 11/13/2024 3:52 PM EDT - 11/13/2024 11:59 PM EDT Hospital Encounter Radiology Department - [address] [phone] Stage 3a chronic kidney disease ([facility] V24, [facility] V28); Benign prostatic hyperplasia, unspecified whether lower urinary tract symptoms present Discharge Disposition: Home or Self Care 11/05/2024 Telephone Adult Medicine [address] [phone] Moses Duran PA 11/04/2024 3:00 PM EDT Lab Draw Station [address] Screening for malignant neoplasm of colon; Type 2 diabetes, diet controlled ([facility] V24, [facility] V28); Stage 3a chronic kidney disease ([facility] V24, [facility] V28); Peripheral vascular disease ([facility] V24); Pure hypercholesterolemia; Elevated prostate specific antigen (PSA); Benign prostatic hyperplasia, unspecified whether lower urinary tract symptoms present; Abnormal level of blood mineral; Abnormal finding of blood chemistry, unspecified 11/04/2024 2:30 PM EDT Office Visit Adult Medicine [address] [phone] Moses Duran, PA Type 2 diabetes, diet controlled ([facility] V24, [facility] V28) (Primary Dx); Screening for malignant neoplasm of colon; Stage 3a chronic kidney disease ([facility] V24, [facility] V28); Peripheral vascular disease ([facility] V24); Pure hypercholesterolemia; Elevated prostate specific antigen (PSA); Atherosclerosis of [place] coronary 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, unspecified whether [place] or transplanted heart ([facility] V24); Benign prostatic hyperplasia, unspecified whether lower urinary tract symptoms present 11/04/2024 Telephone Adult Medicine [address] [phone] Moses Duran PA 10/31/2024 Telephone Adult Medicine [address] [phone] Moses Duran PA Labs Only (CHG ASSAY OF PROSTATE SPECIFIC ANTIGEN FREE , MICROALBUMIN/CREATINI NE, URINE , CHG COMPREHENSIVE METABOLIC PANEL , CHG LIPID PANEL , HEMOGLOBIN A1C) from Last 3 Months Immunizations Name Administration Dates Next Due DTaP, Unspecified 09/25/2002 Pneumococcal conjugate 13 va lent (Prevnar 13, PCV13) 2mo and older 11/16/2017 Pneumococcal polysaccharide 23 valent (Pneumovax 23) 2yo and older 10/30/2016 Td, Unspecified 09/25/2002 Tdap Tetanus diptheria acell ular pertussis (Boostrix; Adacel) 7yo and older 01/13/2013 Surgical History Surgery Date Site/Laterality Comments KNEE SURGERY Right PROCEDURE: HISTORICAL KNEE SURGERY; COMMENT: arthroscopic surgery COLONOSCOPY 2005 PROCEDURE: HISTORICAL COLONOSCOPY; COMMENT: [facility], negative examination. COLONOSCOPY 2016 PROCEDURE: HISTORICAL COLONOSCOPY; COMMENT: Low risk adenomas ? 3 . COLONOSCOPY 07/21/2019 PROCEDURE: HISTORICAL COLONOSCOPY; COMMENT: Sub-5 mm polyps x3 at the rectosigmoid junction, pathology: Hyperplastic x1 and tubular adenoma x1. CARDIAC CATHETERIZATION 2020 PROCEDURE: HISTORICAL CARDIAC CATH; COMMENT: dr. fuentes - rca occlusion CARDIAC CATHETERIZATION 2006 PROCEDURE: HISTORICAL CARDIAC CATH OTHER SURGICAL HISTORY 06/15/2021 PROCEDURE: TRANSLUMINAL BALLOON ANGIOP PERIPHERAL ART RSI; COMMENT: dr. taylor -angioplasty and stent of left SFA Medical History Medical History Date Comments History of colon polyps 08/25/2015 DX:Histo ry of colon polyps; COMMENT: Low risk adenomas ? 3 at colonoscopy August,, next examination indicated 2018. Pure hypercholesterolemia 10/18/2006 DX:Pur e hypercholesterolemia Coronary atherosclerosis of [place] coronary artery 06/04/2007 DX:Coronary atherosclerosis of [place] coronary artery Herniated lumbar intervertebral disc 01/15/2008 DX:Herniated lumbar intervertebral disc Peripheral vascular disease ([facility] V24) 02/09/2009 DX:Peripheral vascular disea se ([facility]) Type 2 diabetes, diet contro lled (CMS/HCC V24, CMS/HCC V28) 02/02/2012 DX:Type 2 diabetes, diet co ntrolled ([facility]) Depression 08/05/2012 DX:Depression Family History Medical History Relation Name Comments Lung cancer Aunt 1 smoker Lung cancer Aunt 2 nonsmoker Other: PVD Brother Hyperlipidemia Father Hypertension Father Lung cancer Father smoker - w/mets Other: PVD Father Dementia Mother Hyperlipidemia Mother Hypertension Mother Relation Name Status Comments Aunt 1 Aunt 2 Brother Alive Peripheral vasc ular disease, cad Father (Age 92) Hypertensi on, hyperlipidemia,dm, lung ca (smoking hx) Mother Hypertension hy perlipidemia 95 Social History Tobacco Use Types Packs/Day Years Used Date Smoking Tobacco: Former Cigarettes Q uit: 08/13/2012 Smokeless Tobacco: Former Quit: 10/22/2010 Tobacco Cessation:Counseling Given: Not Answered Alcohol Use Standard Drinks/Week Comments Yes 8.3 [...] for your loved ones. For example, child day care provider or elderly care for an older adult? [...] on file Sexual Orientation Not on file Obstetrics History Last Filed Vital Signs Vital Sign Reading Time Taken Comments Blood Pressure 120/70 11/04/2024 2:30 PM EDT Pulse 64 11/04/2024 2:22 PM EDT Temperature 35.9 ??C (96.7 ??F) 11/04/2024 2:22 PM ED T Respiratory Rate 17 11/04/2024 2:22 PM EDT Oxygen Saturation - - Inhaled Oxygen Concentration - - Weight 97.9 kg (215 lb 12.8 oz) 11/04/2024 2:22 PM EDT Height 193 cm (6' 4 ) 11/04/2024 2:22 PM EDT Body Mass Index 26.27 11/04/2024 2:22 PM EDT Plan of Treatment Upcoming Encounters Date Type Department Care Team (Late st Contact Info) Description 01/14/2025 12:30 PM EDT Appointment [facility] End[facility] [address] [place] [phone] Jb Gage MD [address] [facility] [address] [place] [address] 04/07/2025 3:30 PM EDT Office Visit Adult Medicine [facility] [address] [place] [phone] Moses Duran PA [address] [place] [address] Health Maintenance Due Date Last Done Comments COVID-19 Vaccine (3 - Pfizer risk series) 12/20/2020 11/22/2020, 11/01/2020 Colorectal Cancer Screening: Colonoscopy 07/22/2022 Falls Risk Assessment 12/09/2024 12/10/2023 Lung Cancer Screening (Low Dose CT) 05/01/2025 05/01/2024, 04/30/2024, 04/25/2023, Additional history exists Diabetes: Blood Sugar Control Test (HGBA1C) 05/07/2025 11/04/2024, 06/10/2024, 06/10/2024 Diabetes: Annual Retina Eye Exam 05/23/2025 05/23/2024 Diabetes: Annual Foot Exam 06/13/2025 06/13/2024 Medicare Annual Wellness Visit 06/13/2025 06/13/2024 Depression Screening 10/30/2025 10/30/2024, 06/13/20 Social Influencers of Health Screening 10/30/2025 10/30/2024 Diabetes: Annual Urine Albumin-Creatinine Ratio (uACR) 11/04/2025 11/04/2024, 06/10/2024 Diabetes: Annual GFR (Glomerular Filtration Rate) 11/25/2025 11/25/2024, 11/04/2024, 06/10/2024, Additional history exists Hypertension/CHF/CAD Annual BMP Blood Test 11/25/2025 11/25/2024, 11/04/2024, 06/10/2024, Additional history exists Cholesterol Screening (Lipid Panel) 11/04/2029 11/04/2024, 06/10/2024, 06/10/2024 DTaP,Tdap,and Td Vaccines Discontinued 2012, 09/25/2002, 09/25/2002 Hepatitis C Screening Completed 01/18/2013 Abdominal Aortic Aneurysm (AAA) Screen Completed 07/19/2016 Pneumococcal Vaccine: 50+ Years Completed 11/16/2017, 10/30/2016 HIB Vaccines Aged Out No longer eligi ble based on patient's age to complete this topic HPV Vaccines Aged Out No longer eligi ble based on patient's age to complete this topic Hepatitis A Vaccines Aged Out No long er eligible based on patient's age to complete this topic Hepatitis B Vaccines Aged Out No long er eligible based on patient's age to complete this topic IPV Vaccines Aged Out No longer eligi ble based on patient's age to complete this topic Influenza Vaccine Discontinued MMR Vaccines Aged Out No longer eligi ble based on patient's age to complete this topic Meningococcal ACWY Vaccine Aged Out N o longer eligible based on patient's age to complete this topic Meningococcal B Vaccine Aged Out No l onger eligible based on patient's age to complete this topic RSV Immunization Adult Patients Discontinued RSV Immunization Patients Under 20 months Aged Out No longer eligible based on patient's age to complete this topic Varicella Vaccines Aged Out No longer eligible based on patient's age to complete this topic Zoster Vaccines Discontinued Procedures Procedure Name Priority Date/Time Associated Diagnosis Comments BASIC METABOLIC PANEL Routine 11/25/2024 12:21 PM EDT Type 2 diabetes, diet controlled (CMS/HCC V24, CMS/HCC V28) Elevated PSA Stage 3a chronic kidney disease (CMS/HCC V24, CMS/HCC V28) Pure hypercholesterolemia Atherosclerosis of [place] coronary 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, unspecified whether [place] or transplanted heart (CMS/HCC V24) Benign prostatic hyperplasia, unspecified whether lower urinary tract symptoms present US RETROPERITONEAL COMPLETE Routine 11/13/2024 4:23 PM EDT Stage 3a chronic kidney disease (CMS/HCC V24, CMS/HCC V28) Benign prostatic hyperplasia, unspecified whether lower urinary tract symptoms present MICROALBUMIN CREATININE URINE RATIO Routine 11/04/2024 3:05 PM EDT Screening for malignant neoplasm of colon Type 2 diabetes, diet controlled (CMS/HCC V24, CMS/HCC V28) Stage 3a chronic kidney disease (CMS/HCC V24, CMS/HCC V28) Peripheral vascular disease (CMS/HCC V24) Pure hypercholesterolemia PSA TOTAL, FREE AND COMPLEXED, DIAGNOSTIC Routine 11/04/2024 3:00 PM EDT Screening for malignant neoplasm of colon Type 2 diabetes, diet controlled (CMS/HCC V24, CMS/HCC V28) Stage 3a chronic kidney disease (CMS/HCC V24, CMS/HCC V28) Peripheral vascular disease (CMS/HCC V24) Pure hypercholesterolemia Elevated prostate specific antigen (PSA) LIPID PANEL WITH REFLEX TO DIRECT LDL Routine 11/04/2024 3:00 PM EDT Screening for malignant neoplasm of colon Type 2 diabetes, diet controlled (CMS/HCC V24, CMS/HCC V28) Stage 3a chronic kidney disease (CMS/HCC V24, CMS/HCC V28) Peripheral vascular disease (CMS/HCC V24) Pure hypercholesterolemia COMPREHENSIVE METABOLIC PANEL Routine 11/04/2024 3:00 PM EDT Screening for malignant neoplasm of colon Type 2 diabetes, diet controlled (CMS/HCC V24, CMS/HCC V28) Stage 3a chronic kidney disease (CMS/HCC V24, CMS/HCC V28) Peripheral vascular disease (CMS/HCC V24) Pure hypercholesterolemia HEMOGLOBIN A1C Routine 11/04/2024 3:00 PM EDT Screening for malignant neoplasm of colon Type 2 diabetes, diet controlled (CMS/HCC V24, CMS/HCC V28) Stage 3a chronic kidney disease (CMS/HCC V24, CMS/HCC V28) Peripheral vascular disease (CMS/HCC V24) Pure hypercholesterolemia HM DEPRESSION SCREENING Routine 06/13/2024 DIABETES FOOT EXAM Routine 06/13/2024 DIABETES EYE EXAM Routine 05/23/2024 CT LUNG SCREENING LOW DOSE Routine 05/01/2024 2:34 PM EDT Encounter for screening for malignant neoplasm of respiratory organs FALLS RISK ASSESSMENT Routine 12/10/2023 ABDOMINAL AORTIC ANEURYSM SCRREN Routine 07/19/2016 HEPATITIS C SCREENING Routine 01/18/2013 from Last 3 Months or Most Recently Relevant to Health Maintenance Results * (ABNORMAL) Basic metabolic panel (11/25/2024 12:21 PM EDT) Sodium 136 133 - 145 mmol/L LAB CHEMISTRY METHOD 11/25/2024 3:36 PM [facility] Potassium 5.1 3.5 - 5.5 mmol/L LAB CHEMISTRY METHOD 11/25/2024 3:36 PM [facility] Chloride 106 96 - 110 mmol/L LAB CHEMISTRY METHOD 11/25/2024 3:36 PM [facility] CO2 26 21 - 32 mmol/L LAB CHEMISTRY METHOD 11/25/2024 3:36 PM [facility] Anion Gap 4 3 - 11 LAB CHEMISTRY METHOD 11/25/2024 3:36 PM [facility] Glucose 209(H) 70 - 100 mg/dL LAB CHEMISTRY METHOD 11/25/2024 3:36 PM [facility] BUN 27(H) 5 - 25 mg/dL LAB CHEMISTRY METHOD 11/25/2024 3:36 PM [facility] Creatinine 1.90(H) 0.70 - 1.30 mg/dL LAB CHEMISTRY METHOD 11/25/2024 3:36 PM [facility] eGFR 36(L) >=60 mL/min/1. 73m2 LAB CHEMISTRY METHOD 11/25/2024 3:36 PM EDT [facility] Comment:Calculation based on the??Chronic Kidney Disease Epidemiology Collaboration (CKD-EPI) equation refit??without adjustment for race. BUN/Creatinine Ratio 14.2 LAB CHEMISTRY METHOD 11/25/2024 3:36 PM EDT [facility] Calcium 9.2 8.5 - 10.5 mg/dL LAB CHEMISTRY METHOD 11/25/2024 3:36 PM EDT [facility] Blood Venous blood specimen / Unknown Venipuncture / Unknown 11/25/2024 12:21 PM EDT 11/25/2024 12:21 PM EDT us Moses MIXON LAB BLOOD ORDERABLES Flor mccabe Result [facility] [address] [place] [address], [place] [phone] * US Retroperitoneal Complete (11/13/2024 4:23 PM EDT) Anatomical Region Laterality Modality Body Ultrasound 11/13/2024 7:58 PM EDT Impressions 11/13/2024 8:05 PM EDT No hydronephrosis. ??Small right renal cysts. Marked prostatomegaly. ?? POS - [id number] -------- FINAL REPORT -------- Dictated By: Juanita Garcia Dictated Date: 11/13/2024 19:58 ET Assigned Physician: Juanita Garcia Reviewed and Electronically Signed By: Juanita Garcia Signed Date: 11/13/2024 20:05 ET Workstation ID: [id number] Transcribed By: Self Edit Transcribed Date: 11/13/2024 19:58 ET Narrative 11/13/2024 8:05 PM EDT EXAM: Ultrasound retroperitoneal HISTORY: Elevated creatinine. ??Benign prostatic hyperplasia. COMPARISON: None FINDINGS: Kidneys are within normal limits for size measuring 11.4 cm on the right and 11.6 cm on the left in craniocaudad extent. ??Cortical thickness and echogenicity are within normal limits. ??No hydronephrosis or shadowing stones. ??2 exophytic cysts on the right which measure 1.0 x 1.0 x 0.6 cm at the mid kidney and 1.4 x 1.3 x 1.3 cm at the lower kidney. ??No left renal lesion. Suboptimal assessment of the bladder due to underdistention. ??Prevoid bladder volume measures 70 cc and post void measures 14 cc. ??No evidence of an intraluminal mass or stone. ??Borderline bladder wall thickening may which may be secondary to underdistended state. ??Ureteral jets not visualized. ??Marked prostatomegaly with a volume of 131 cc. Procedure Note Juanita Garcia MD - 11/13/2024 EXAM: Ultrasound retroperitoneal HISTORY: Elevated creatinine. Benign prostatic hyperplasia. COMPARISON: None FINDINGS: Kidneys are within normal limits for size measuring 11.4 cm on the rightand 11.6 cm on the left in craniocaudad extent. Cortical thickness andechogenicity are within normal limits. No hydronephrosis or shadowingstones. 2 exophytic cysts on the right which measure 1.0 x 1.0 x 0.6 cmat the mid kidney and 1.4 x 1.3 x 1.3 cm at the lower kidney. No leftrenal lesion. Suboptimal assessment of the bladder due to underdistention. Prevoidbladder volume measures 70 cc and post void measures 14 cc. No evidenceof an intraluminal mass or stone. Borderline bladder wall thickening maywhich may be secondary to underdistended state. Ureteral jets notvisualized. Marked prostatomegaly with a volume of 131 cc. IMPRESSION: No hydronephrosis. Small right renal cysts. Marked prostatomegaly. POS - [id number] -------- FINAL REPORT -------- Dictated By: Juanita Garcia Dictated Date: 11/13/2024 19:58 ET Assigned Physician: Juanita Garcia Reviewed and Electronically Signed By: Juanita Garcia Signed Date: 11/13/2024 20:05 ET Workstation ID: [id number] Transcribed By: Self Edit Transcribed Date: 11/13/2024 19:58 ET Moses MIXON IM US PROCEDURES Final R esult * (ABNORMAL) Microalbumin creatinine urine ratio (11/04/2024 3:05 PM EDT) Creatinine, Urine 99.0 mg/dL LAB CHEMISTRY METHOD 11/04/2024 7:44 PM EDT [facility] Microalb, Ur 64.4(H) 0.0 - 29.0 mg/L LAB CHEMISTRY METHOD 11/04/2024 7:44 PM EDT [facility] Microalb/Crea t Ratio 65(H) <30 mg/g creat LAB CHEMISTRY METHOD 11/04/2024 7:44 PM EDT [facility] Urine Urine specimen obtained by clean catch procedure / Unknown Non-blood Collection / Unknown 11/04/2024 3:05 PM EDT 11/04/2024 3:05 PM EDT Moses MIXON LAB URINE ORDERABLES Flor l Result [facility] [address] [place] [address], [place] [phone] * (ABNORMAL) PSA total, free and complexed (11/04/2024 3:00 PM EDT) PSA 5.20(H) 0.00 - 4.00 ng/mL LAB CHEMISTRY METHOD 11/04/2024 7:45 PM EDT [facility] PSA, Complexed 3.22(H) 0.00 - 3.00 ng/mL LAB CHEMISTRY METHOD 11/04/2024 7:45 PM EDT [facility] PSA, Free 2.0 ng/mL LAB CHEMISTRY METHOD 11/04/2024 7:45 PM EDT [facility] PSA, Free Pct 38.5 >25.0 % LAB CHEMISTRY METHOD 11/04/2024 7:45 PM EDT [facility] Blood Venous blood specimen / Unknown Venipuncture / Unknown 11/04/2024 3:00 PM EDT 11/04/2024 3:00 PM EDT [facility] - 11/04/2024 7:45 PM EDT Free PSA is a calculated value. ??The diagnostic usefulness of % free PSA has not been established in patients with Total PSA below 2.6 or above 10 ng/mL. ?? This test was performed using the Centaur Chemiluminescent method. ??PSA values obtained with other methods cannot be used interchangeably. us Moses MIXON LAB BLOOD ORDERABLES Flor mccabe Result [facility] [address] [place] [address], * (ABNORMAL) Lipid panel with reflex to direct LDL (11/04/2024 3:00 PM EDT) Cholesterol 176 0 - 200 mg/dL LAB CHEMISTRY METHOD 11/04/2024 6:45 PM EDT [facility] Triglycerides 231(H) 0 - 150 mg/dL LAB CHEMISTRY METHOD 11/04/2024 6:45 PM EDT [facility] HDL 64 >=40 mg/dL LAB CHEMISTRY METHOD 11/04/2024 6:45 PM EDT [facility] LDL Calculated 66 0 - 100 mg/dL LAB CHEMISTRY METHOD 11/04/2024 6:45 PM EDT [facility] VLDL Cholesterol Anant 46.2 mg/dL LAB CHEMISTRY METHOD 11/04/2024 6:45 PM EDT [facility] Non HDL Chol. (LDL+VLDL) 112 <145 mg/dL LAB CHEMISTRY METHOD 11/04/2024 6:45 PM EDT [facility] Chol/HDL Ratio 2.8 0.0 - 4.4 LAB CHEMISTRY METHOD 11/04/2024 6:45 PM EDT [facility] Blood Venous blood specimen / Unknown Venipuncture / Unknown 11/04/2024 3:00 PM EDT 11/04/2024 3:00 PM EDT Moses MIXON LAB BLOOD ORDERABLES Flor l Result Performing Organization Address [facility]/ZIP Co de Phone Number [facility] [address] [place] [address], [place] [phone] * (ABNORMAL) Hemoglobin A1c (11/04/2024 3:00 PM EDT) Pathologist [facility] [place] Hemoglobin A1C 8.3(H) <6.5 % LAB CHEMISTRY METHOD 11/04/2024 9:08 PM EDT [facility] Mean Bld Glu Estim. 192 mg/dL LAB CHEMISTRY METHOD 11/04/2024 9:08 PM EDT [facility] Blood Venous blood specimen / Unknown Venipuncture / Unknown 11/04/2024 3:00 PM EDT 11/04/2024 3:00 PM EDT Moses MIXON LAB BLOOD ORDERABLES Flor l Result Performing Organization Address [facility] Co de Phone Number [facility] [address] [place] [address], [place] [phone] * (ABNORMAL) Comprehensive metabolic panel (11/04/2024 3:00 PM EDT) Sodium 138 133 - 145 mmol/L LAB CHEMISTRY METHOD 11/04/2024 6:45 PM EDT [facility] Potassium 5.0 3.5 - 5.5 mmol/L LAB CHEMISTRY METHOD 11/04/2024 6:45 PM EDT [facility] Chloride 107 96 - 110 mmol/L LAB CHEMISTRY METHOD 11/04/2024 6:45 PM EDT [facility] CO2 25 21 - 32 mmol/L LAB CHEMISTRY METHOD 11/04/2024 6:45 PM [facility] Anion Gap 6 3 - 11 LAB CHEMISTRY METHOD 11/04/2024 6:45 PM [facility] Glucose 186(H) 70 - 100 mg/dL LAB CHEMISTRY METHOD 11/04/2024 6:45 PM [facility] BUN 32(H) 5 - 25 mg/dL LAB CHEMISTRY METHOD 11/04/2024 6:45 PM [facility] Creatinine 1.90(H) 0.70 - 1.30 mg/dL LAB CHEMISTRY METHOD 11/04/2024 6:45 PM [facility] eGFR 36(L) >=60 mL/min/1. 73m2 LAB CHEMISTRY METHOD 11/04/2024 6:45 PM [facility] Comment:Calculation based on the??Chronic Kidney Disease Epidemiology Collaboration (CKD-EPI) equation refit??without adjustment for race. BUN/Creatinine Ratio 16.8 LAB CHEMISTRY METHOD 11/04/2024 6:45 PM [facility] Calcium 9.7 8.5 - 10.5 mg/dL LAB CHEMISTRY METHOD 11/04/2024 6:45 PM [facility] AST (SGOT) 20 10 - 42 unit/L LAB CHEMISTRY METHOD 11/04/2024 6:45 PM [facility] ALT (SGPT) 27 10 - 60 unit/L LAB CHEMISTRY METHOD 11/04/2024 6:45 PM [facility] Alkaline Phosphatase 87 42 - 121 unit/L LAB CHEMISTRY METHOD 11/04/2024 6:45 PM [facility] Total Protein 7.3 6.0 - 8.0 g/dL LAB CHEMISTRY METHOD 11/04/2024 6:45 PM [facility] Albumin 4.1 3.2 - 5.0 g/dL LAB CHEMISTRY METHOD 11/04/2024 6:45 PM EDT [facility] Total Bilirubin 0.5 0.0 - 1.4 mg/dL LAB CHEMISTRY METHOD 11/04/2024 6:45 PM EDT [facility] Blood Venous blood specimen / Unknown Venipuncture / Unknown 11/04/2024 3:00 PM EDT 11/04/2024 3:00 PM EDT Moses MIXON LAB BLOOD ORDERABLES Flor l Result [facility] [address] [place] [address], * Depression Screening (06/13/2024) [facility] Depression Screening abstracted Historical Provider HEALTH MAINTENANCE Final Result * Diabetes Foot Exam (06/13/2024) [facility] Diabetes: Annual Foot Exam abstracted Historical Provider HEALTH MAINTENANCE Final Result * Diabetes Eye Exam (05/23/2024) [facility] Diabetes: Annual Retina Eye Exam abstracted Historical Provider HEALTH MAINTENANCE Final Result * CT LUNG SCREENING LOW DOSE (05/01/2024 2:34 PM EDT) Anatomical Region Laterality Modality Computed Tomogra phy 04/30/2024 3:41 PM EDT Narrative 05/01/2024 2:34 PM EDT [facility] Diagnostic Imaging Department [address] [place] [address] Patient: ??KANA,YOKASTA Collazo ?/Age/Sex: 1950 - 73 - M Unit#: ??[id number] ? Location/Status: ??SPDICATLS/REG CLI ? Mnemonic/Ordering Site: ??CTLUNGLD/SPCT Ordering Physician: ??TIMBO GALAN MD CT Lung Screening Low Dose - 04/30/24 - 1555 Report Status:Signed Chest CT, 05/01/2024 1:41 PM. TECHNIQUE: Low-dose CT of the chest without intravenous contrast administration. ??Coronal and sagittal reformats and MIP reconstructions were created. Dose length product: ??201 mGy-cm. 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 FINDINGS: Lungs/pleura: Airways are clear and normal in caliber. ??Mild centrilobular emphysema. ??Thin linear band of scarring in the lingula. ??No suspicious nodule or mass. ??No pleural effusion or pneumothorax. Mediastinum/lizz: No mediastinal mass or lymphadenopathy. ??No appreciable hilar lymphadenopathy on limited noncontrast evaluation. Cardiac: Normal heart size. ??Severe coronary artery calcifications. Vasculature: Normal caliber pulmonary arteries. ??Mild atherosclerotic calcifications of the aorta and great vessels. Chest wall: No mass or lymphadenopathy. Limited abdomen: There is a small calcification in the perihilar left upper pole kidney which could be atherosclerotic or possibly a small collecting system calculus. Bones: Degenerative changes of the spine and shoulders. IMPRESSION: Lung RADS 1. ??No suspicious pulmonary nodule. ??Guidelines recommend repeat low- dose screening CT in 12 months. Dictating Physician: ??DEVIN RIEVRA MD Electronically Signed by: ??DEVIN RIVERA MD Dic Date/Time: ??05/01/24 1341 Sign date/Time: ??05/01/24 1434 Procedure Note Devin Rivera MD - 05/28/2024 [facility] Diagnostic Imaging Department [address] [place] [id number] Patient: YOKASTA ESCUDERO /Age/Sex: 1950 - 73 - M Unit#: [id number] Location/Status: SPDICATLS/REG CLI Mnemonic/Ordering Site: [facility] Ordering Physician: TIMBO GALAN MD CT Lung Screening Low Dose - 04/30/24 - 1555 Report Status:Signed Chest CT, 05/01/2024 1:41 PM. TECHNIQUE: Low-dose CT of the chest without intravenous contrast administration. Coronal and sagittal reformats and MIP reconstructionswere created. Dose length product: 201 mGy-cm. 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 FINDINGS: Lungs/pleura: Airways are clear and normal in caliber. Mildcentrilobular emphysema. Thin linear band of scarring in the lingula. No suspiciousnodule or mass. No pleural effusion or pneumothorax. Mediastinum/lizz: No mediastinal mass or lymphadenopathy. No appreciablehilar lymphadenopathy on limited noncontrast evaluation. Cardiac: Normal heart size. Severe coronary artery calcifications. Vasculature: Normal caliber pulmonary arteries. Mild atherosclerotic calcifications of the aorta and great vessels. Chest wall: No mass or lymphadenopathy. Limited abdomen: There is a small calcification in the perihilar leftupper pole kidney which could be atherosclerotic or possibly a small collectingsystem calculus. Bones: Degenerative changes of the spine and shoulders. IMPRESSION: Lung RADS 1. No suspicious pulmonary nodule. Guidelines recommend repeatlow- dose screening CT in 12 months. Dictating Physician: DEVIN RIVERA MD Electronically Signed by: DEVIN RIVERA MD Dic Date/Time: 05/01/24 1341 Sign date/Time: 05/01/24 1434 Timbo Galan MD IMG CT PROCEDURES Final Result * Falls Risk Assessment (12/10/2023) Pathologist [facility] [place] Risk Assessment abstracted Historical Provider HEALTH MAINTENANCE Final Result * Abdominal Aortic Aneurysm Screen (07/19/2016) Pathologist [facility] Abdominal Aortic Aneurysm (AAA) Screening abstracted Anatomical Region Laterality Modality Other Historical Provider HEALTH MAINTENANCE Final Result * Hepatitis C Screening (01/18/2013) Pathologist [facility] Hepatitis C Screening abstracted Historical Provider HEALTH MAINTENANCE Final Result from Last 3 Months or Most Recently Relevant to Health Maintenance Insurance [employer] MEDICARE Care Teams Biology Tutor Relationship Specialty Start Date End Date Moses Duran PA [address] [place] [id number] PCP - General Internal Medicine 10/19/20
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
== END 2024-12-09 13:18 | disposition home or self-care (01) ==
LOC: HO.HVS 12:52
PROVIDERS: PCP Physician Assistant Medical; Visit Provider Surgery Vascular Surgery
DX: I73.9 Peripheral vascular disease, unspecified (principal)
CPT/HCPCS: 99214; G2211

== ENCOUNTER → 2024-12-09 12:52 | Outpatient (BNVA) | payer MEDICARE, SELFPAY | PROVIDERS: PCP Physician Assistant Medical; Visit Provider Surgery Vascular Surgery | DX: I73.9 Peripheral vascular disease, unspecified (principal) | CPT/HCPCS: 99212 ==

== ENCOUNTER 2024-12-12 09:43 | Outpatient (REF) | payer MEDICARE, SELFPAY ==
--- NOTE | ~2024-12-12 | US_ITS ---
EXAMINATION: Noninvasive assessment of the bilateral lower extremities with ARTERIAL DUPLEX, ANKLE BRACHIAL INDICES (ABIs), and PULSE VOLUME RECORDINGS (PVRs). ULTRASOUND ARTERIAL DOPPLER ABDOMINAL AORTA AND ILIAC ARTERIES CLINICAL INFORMATION: Peripheral vascular disease. Status post stent proximal to mid left femoral artery.. TECHNIQUE: Duplex Doppler techniques with waveform analysis and measurement of velocities in the bilateral common femoral, profunda femoris, superficial femoral, popliteal and tibial arteries were performed. Additionally, ankle pulse volume recordings, ankle pressure measurements and ankle brachial indices were obtained of the lower extremity arterial system bilaterally. The study was performed only at rest. Duplex Doppler techniques applied to the abdominal aorta and the iliac arteries. COMPARISON: None FINDINGS: Calcified plaques throughout the interrogated arteries. DIRECT DUPLEX DOPPLER FINDINGS: RIGHT LEG: Common femoral artery: 67 cm/s, phasicity: Monophasic. Profunda femoris artery: 23 cm/s, phasicity: Triphasic. Superficial femoral artery (proximal): 313 cm/s, phasicity: Monophasic. Spectral broadening. Superficial femoral artery (mid): 565 cm/s, phasicity: Monophasic. Spectral broadening. Superficial femoral artery (distal): 83 cm/s, phasicity: Monophasic. Popliteal artery: 24 cm/s, phasicity: Monophasic. Posterior tibial artery: 27 cm/s, phasicity: Monophasic. Peroneal artery: Not identified. Anterior tibial artery: 10 cm/s, phasicity: Monophasic. Dorsalis pedis artery: 4 cm/s, phasicity:Monophasic. LEFT LEG: Common femoral artery: 133 cm/s, phasicity: Monophasic. Profunda femoris artery: 67 cm/s, phasicity: Monophasic. Superficial femoral artery (proximal): 64 cm/s, phasicity: Monophasic.. There is a stent. Superficial femoral artery (mid): 98 cm/s, phasicity: Monophasic. There is a stent Superficial femoral artery (distal): 44 cm/s, phasicity: Monophasic. Popliteal artery: 31 cm/s, phasicity: Monophasic. Posterior tibial artery: 29th cm/s, phasicity: Monophasic. Peroneal artery: Not identified. Anterior tibial artery: 27 cm/s, phasicity: Monophasic. Dorsalis pedis artery: 21 cm/s, phasicity: Monophasic. BRACHIAL PRESSURES: Right: 158 Left: 164 ANKLE PRESSURES: Right: PT 200, DP 200 Left: PT 200, DP 200 ANKLE-BRACHIAL INDEX: Right: Nondiagnostic Left: Nondiagnostic ANKLE PVR WAVEFORMS: Right: Abnormal Left: Abnormal Left femoral artery stent: [place] artery proximal to the stent: 58 cm/s and and monophasic waveform. Proximal to stent: 54 cm/s and monophasic waveform. Mid stent: 63 cm/s and monophasic. Distal stent: 60 cm/s and monophasic waveform. [place] artery distal to the stent: 66 cm and monophasic waveform. ABDOMINAL AORTA: Proximal segment: 75 cm/s and 2.9 cm in diameter. Mid segment: 43 cm/s and 2.6 cm in diameter. Distal segment: 39 cm/s and 2.1 cm in diameter. RIGHT ILIAC ARTERY: Common iliac artery: 41 cm/s. External iliac artery: 91 cm/s. LEFT ILIAC ARTERY: Common iliac artery: 213 cm/s. External iliac artery: 191 cm/s. US/US abdominal aortic aneurysm IMPRESSION: Right leg: Severe inflow disease throughout the interrogated vessels. Left leg: Severe inflow disease throughout the interrogated vessels. The stent at the proximal to mid segment of the left femoral artery is patent. No abdominal aortic aneurysm. High peak systolic velocities in the left iliac artery. SVEN Reference: - >1.4 = calcified vessels - 0.9 - 1.4 = normal - no significant arterial disease - 0.7 - 0.89 = mild peripheral arterial disease - 0.51 - 0.69 = moderate peripheral arterial disease - d 0.50 = severe peripheral arterial disease - < .30 = critical arterial disease Electronically signed by: Edwin Basilio MD 12/12/2024 01:31 PM EDT
--- OUTSIDE RECORDS SUMMARY | 2024-12-12 10:31 | XMS_ITS | Data Portability ---
Author Organization [facility] [address] Address [address] [place] [address] Assessment No assessment recorded. Plan of Treatment Reminders Order Date Submit Date Provider Last Modified By Organization Details Last Modified Time Details Appointments None recorded. Lab None recorded. Referral orthopedic surgeon referral - avulsion fracture right lateral malleolus. need further evaluation and treatment. 2022 023 [email or web address] [facility], [address], [place], [address], 08:17:51 Procedures None recorded. Surgeries None recorded. Imaging XR, ankle, 3 or more view 2022 023 NATHAN [facility], [address] [place], [address], 17:52:34 XR, foot, 3 or more view 2022 023 NATHAN [facility], [address] [place], [address], 17:52:26 Medication Orders None recorded. Patient TargetsNo targets recorded. Patient Instructions Encounter Date Encounter Id Patient Instructions Last Modified By Organization Details Last Modified Time 07/02/2023 [id number] foot pain: care instructions deb Not available [...] ed. deb [facility] [address] [place], [address], 07/02/2023 17:54:07 07/02/20 23 07/02/2023 XR, ankle , 3 or more view No observ ation record ed. [email or web address] [facility] [address] [place], [address], 07/02/2023 17:54:07 Result Notes None recorded. Problems Name Problem SNOMED Code Status Onset Date Resolution Date Notes Provider Name and Address Organization Details Recorded Time Hypertensive disorder 38998351 Active DENITA MINEO null, [place] - [facility] 3 16:30:37 Diabetes mellitus 47534283 Active DENITA MINEO null, [place] - [facility] 3 16:30:45 Hyperlipidemia 80892020 Active DENITA MINEO null, [place] - [facility] 3 16:31:06 Heart disease 16769313 Active DENITA MINEO null, [place] - [facility] [...] 3 or more view completed [facility] [address] [place], [address], 07/02/2023 17:54:07 07/02/2023 XR, ankle, 3 or more view completed [email or web address] [facility] [address] [place], [address], 07/02/2023 17:54:07 Procedure Notes None recorded. Medical [...] Updated DateTime 3 193.04 cm 26.8 kg/m2 52756.3 2 g 100 % 100 % 65 [...] SNOMED-CT Code Diagnosis ICD10 Code Diagnosis Note [id number] [facility] [address] [place] [phone] 07/14/2021 15:12:08 07/14/2021 17:29:03 [id number] [place] [address] [place] [address] 07/02/2023 16:17:47 07/02/2023 17:36:19 Sprain of right ankle 9470799784 7870417 S93.401A Pain in right foot 84540 11844 12588 M79.671 Closed fra cture of lateral malleolus 26952019 S82.61XA Health Concerns Section Related Observation LastModified by Organization Detai ls LastModified Time None Recorded Concern Status LastModified by Organization Details LastModified Time None Recorded Advance Directives Directive None Recorded Payers Encounter Date Sequence Insurance Name Policy Number Policy Vincent Covered Member ID Vincent Member ID Guarantor Name 07/14/2021 1 [facility] (MEDICARE REPLACEMENT/A DVANTAGE - PPO) [id number] Eron Escudero [id number] Eron Escudero 07/02/2023 1 [facility] (MEDICARE REPLACEMENT/A DVANTAGE - PPO) [id number] Eron Collazo Znoj [id number] Eron Znoj Notes Date Note Type Note [...] Henderson NP [address] [place], [address], [place] - [facility] 07/02/2023 18:04:20
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
== END 2024-12-12 09:44 | disposition home or self-care (01) ==
LOC: HO.US 09:43
PROVIDERS: PCP Physician Assistant Medical; Visit Provider Surgery Vascular Surgery
DX: I73.9 Peripheral vascular disease, unspecified (principal)
CPT/HCPCS: 76706; 93922; 93925

== ENCOUNTER → 2024-12-12 09:48 | Outpatient (BNV) | payer MEDICARE, SELFPAY | PROVIDERS: PCP Physician Assistant Medical; Visit Provider Radiology Diagnostic Radiology | DX: I73.9 Peripheral vascular disease, unspecified (principal) | CPT/HCPCS: 93922; 93925 ==

== ENCOUNTER 2024-12-16 15:03 | Outpatient (AMB) | payer MEDICARE, SELFPAY ==
--- NOTE | 2024-12-16 15:07 | A.OFFVIS_ITS ---
Vital Signs 12/16/24 15:09 Height 6 ft 4 in Weight 220 lb BMI 26.8 BP 154/72 H Blood Pressure Location Rt brachial Position Sitting Intake Visit Reasons: follow up s/p Arterial US 12/12/24 Intake Note: Pt presents to the office today for a follow up s/p arterial US 12/12/24. Allergies No Known Allergies Allergy (Verified 12/16/24 15:10) HPI HPI follow up s/p Arterial US 12/12/24: Details: Pleasant 74-year-old gentleman presents for follow-up regarding right lower extremity claudication. He reports that it has been increasing as he continues to play golf a fair amount. He reports that he has significant cramping in the right lower extremity. He now presents for routine follow-up with noninvasive arterial testing. [facility] Medical History CAD (coronary artery disease) Inferior myocardial infarction Ischemic cardiomyopathy PVD (peripheral vascular disease) Surgical History S/P angiogram of extremity (06/08/21) S/P cardiac catheterization Hx of cardiac cath Family History Father CVD (cardiovascular disease) Social History Alcohol intake: current Alcohol intake frequency: holidays/special occasions only Patient Tobacco Use Status: Former Tobacco user Review of Systems Const All systems reviewed & are unremarkable except as noted in HPI and below Reports no additional complaints ENT Reports Normal hearing present Card Denies chest pain, Denies chest pain at rest, Denies chest pain with activity and Denies pedal edema Resp Denies cough GI Denies abdominal pain Musc Denies abnormal gait, Denies muscle cramps and Denies radiating pain into limb Skin/Breast Denies skin ulcer and Denies wounds Neuro Reports Normal hearing present and Denies abnormal gait Psych Reports no additional complaints Physical Exam Vital Signs: Last Vital Signs BP 154/72 H 12/16/24 15:09 BMI result Body Mass Index 26.8 Const General: cooperative, healthy appearing and comfortable Orientation/consciousness: oriented to person, oriented to place and oriented to time HEENT Head: Yes normal to inspection Neck Neck: Yes normal visual inspection Carotids: no bruits Chest Chest palpation & inspection: normal inspection of the chest Resp Effort & Inspection: normal respiratory effort and able to speak in complete sentences Auscultation: clear to auscultation bilaterally, no crackles, no rales, no rhonchi and no wheezes Cardio Other: Bilateral DP signals Rate: regular rate Rhythm: regular rhythm Heart sounds: S1 normal heart sound present and S2 normal heart sound present Bruits: no carotid bruits Peripheral pulses: Peripheral pulses 2+ throughout GI Inspection: Yes normal to inspection Skin Wounds: no wounds Hair: normal Neuro General: oriented to person, oriented to place and oriented to time Cranial nerves: Yes CN's II-XII intact bilaterally and Yes Normal hearing present Cognition (Neuro): normal cognition Motor exam (neuro): 5/5 motor strength present throughout Extrem Other: venous exam: No significant superficial varicosities or spider telangiectasias, minimal edema General: No clubbing, No cyanosis and No edema Psych Appearance: grossly normal Mental Status: mental status grossly normal Speech and movement: Normal speech and movement present Results Reviewed Results Reviewed: Noninvasive arterial testing dated 12/12/2024 demonstrates monophasic waveforms down both lower extremities. Left SFA stent appears to be patent. There is concern of iliac disease Assessment & Plan Assessment & Plan (1) PVD (peripheral vascular disease): Comment: 05/15/2021 - atherectomy and stent of left SFA, plasty of left SFA with DCB Code(s): I73.9 - Peripheral vascular disease, unspecified Category: Medical Plan: Patient notes leg pain when walking distances. I have discussed the pathophysiology of peripheral vascular disease with the patient. I have also discussed risk factor modification. I have reviewed the patient's arterial testing which reveals right inflow and SFA disease. the patient would benefit from a right leg endovascular peripheral angiogram with possible angioplasty, stent, and/or atherectomy. This has been discussed in detail with the patient along with risks, benefits, and complications. This includes but is not limited to bleeding, infection, heart attack, need for emergent surgical repair, limb ischemia, blood vessel damage, bleeding, puncture, kidney injury, bruising, allergic reaction, and skin reaction. The patient demonstrates a clear understanding. We will schedule for the next appropriate time. Thank you for allowing us to assist in this patient's care. Coding Level of Care Code Est Pt Level 4 (26366) Diagnoses PVD (peripheral vascular disease) I73.9
[2024-12-16 15:09] VITALS: BP 154/72; BMI 26.8
--- OUTSIDE RECORDS SUMMARY | 2024-12-16 16:16 | XMS_ITS | Data Portability ---
Author Organization [place] [facility] Leila Garcia [place] Address [address] [place] [address] Care Team Providers Care Ticket Broker Name Role Phone MARICRUZ OROZCO Primary Care [...] his vascular doctor for a follow up. [email or web address] Not available 08/23/2023 12:08:20 Plan of Treatment Reminders Order Date Submit Date Provider Last Modified By Organization Details Last Modified Time Details Appointments None recorded. Lab None recorded. Referral None recorded. Procedures None recorded. Surgeries None recorded. Imaging XR, ankle, 3 or more view 2023 024 [email or web address] [facility], [address], [place], [address], 4 12:43:18 XR, foot, 2 view 2023 024 [email or web address] [facility], [address], [place], [address], 4 12:43:18 US, duplex, venous, lower extremity - ro DVT RLE, 2+ pitting edema 2023 024 [email or web address] Not available 4 08:54:33 Medication Orders None recorded. Patient TargetsNo targets recorded. Patient Instructions Encounter Date Encounter Id Patient Instructions Last Modified By Organization Details Last Modified Time 08/23/2023 [id number] Weightbearing x-rays of the right foot and ankle were obtained in the [place] office on 08/13/2023 which demonstrates hallux valgus deformity with an angle of 33 degrees and an intermetatarsal angle of 20 degrees. Question of avulsion fracture of the distal fibula versus chronic osteophyte. Mortise is in anatomic alignment. [email or web address] Not available 08/23/2023 12:09:27 Reason for Referral None Reported. Problems Name Problem SNOMED Code Status Onset Date Resolution Date Notes Provider Name and Address Organization Details Recorded Time Swelling of lower leg 657620501 Active 2023 LUIS GARIBAY PA-C [address], [place], [address], [place] [facility] 4 11:31:56 Sprain of right ankle 654822009743203 05 Active 2023 LUIS GARIBAY PA-C [address], [place], [address], [place] [facility] 4 12:08:34 Problem Notes None recorded. Procedures Surgical History Date Name Laterality Status Provider Name and Address Organization Details Recorded Time Stent completed Daniel Salguero [place] [facility] 08/23/2023 10:58:30 Imaging Results None recorded. [...] Updated DateTime 08/23/2023 193.04 cm 26.8 kg/m2 21413.[address] [facility] 08/23/2023 10:57:48 Social History None recorded. Functional Status None recorded. Mental Status None recorded. Family History Nothing Reported. Medical History Condition Response Hypertension Y Past Encounters Encounter ID Performer Location Encounter Start Date Encounter Closed Date Diagnosis/Indication Diagnosis SNOMED-CT Code Diagnosis ICD10 Code Diagnosis Note [id number] LUIS GARIBAY PA-C [address] [address] 08/23/2023 10:35:28 08/23/2023 11:45:31 Pain of right ankle joint 2044115136 3762666 M25.571 Swelling of lower leg 44 5196012 R22.41 Sprain of right ankle 11 90243791 2744735 S93.401A Health Concerns Section Related Observation LastModified by Organization Detai ls LastModified Time None Recorded Concern Status LastModified by Organization Details LastModified Time None Recorded Advance Directives Directive None Recorded Payers Encounter Date Sequence Insurance Name Policy Number Policy Vincent Covered Member ID Vincent Member ID Guarantor Name 08/23/2023 1 [facility] (MEDICARE REPLACEMENT/A DVANTAGE - PPO) [id number] Eron Escudero [id number] Eron Escudero Notes Date Note Type Note [...] ankle pain. He did go to [facility] urgent care on 02 July and [...] Vera Cameron MD [address], [place], [address], [place] [facility] 08/28/2023 20:30:12
--- OUTSIDE RECORDS SUMMARY | 2024-12-16 16:16 | XMS_ITS | Data Portability ---
Author Organization ORAL Bergeron [facility] [address] Address [address] [place] [address] Assessment No assessment recorded. Plan of Treatment Reminders Order Date Submit Date Provider Last Modified By Organization Details Last Modified Time Details Appointments None recorded. Lab None recorded. Referral orthopedic surgeon referral - avulsion fracture right lateral malleolus. need further evaluation and treatment. 2022 023 [email or web address] [facility], [address], [place], [address], 08:17:51 Procedures None recorded. Surgeries None recorded. Imaging XR, ankle, 3 or more view 2022 023 NATHAN [facility], [address] [place], [address], 17:52:34 XR, foot, 3 or more view 2022 023 NATHAN [facility], [address] [place], [address], 17:52:26 Medication Orders None recorded. Patient TargetsNo targets recorded. Patient Instructions Encounter Date Encounter Id Patient Instructions Last Modified By Organization Details Last Modified Time 07/02/2023 [id number] foot pain: care instructions deb Not available [...] ed. deb [facility] [address] [place], [address], 07/02/2023 17:54:07 07/02/20 23 07/02/2023 XR, ankle , 3 or more view No observ ation record ed. [email or web address] [facility] [address] [place], [address], 07/02/2023 17:54:07 Result Notes None recorded. Problems Name Problem SNOMED Code Status Onset Date Resolution Date Notes Provider Name and Address Organization Details Recorded Time Hypertensive disorder 91619956 Active DENITA MINEO null, [place] - [facility] 3 16:30:37 Diabetes mellitus 95285068 Active DENITA MINEO null, [place] - [facility] 3 16:30:45 Hyperlipidemia 23807643 Active DENITA MINEO null, [place] - [facility] 3 16:31:06 Heart disease 43107792 Active DENITA [facility]INEO null, [facility] - [facility] [...] XR, foot, 3 or [facility] [address] [place], [address], 07/02/2023 17:54:07 07/02/2023 XR, ankle, 3 or more view completed [email or web address] [facility] [address] [place], [address], 07/02/2023 17:54:07 Procedure Notes None recorded. Medical [...] Updated DateTime 3 193.04 cm 26.8 kg/m2 00333.3 2 g 100 % 100 % 65 [...] SNOMED-CT Code Diagnosis ICD10 Code Diagnosis Note [id number] [facility] [place] [address] 07/14/2021 15:12:08 07/14/2021 17:29:03 [id number] [place] [address] [place] [address] 07/02/2023 16:17:47 07/02/2023 17:36:19 Sprain of right ankle 8267116503 7362529 S93.401A Pain in right foot 14060 70722 55101 M79.671 Closed fra cture of lateral malleolus 24796587 S82.61XA Health Concerns Section Related Observation LastModified by Organization Detai ls LastModified Time None Recorded Concern Status LastModified by Organization Details LastModified Time None Recorded Advance Directives Directive None Recorded Payers Encounter Date Sequence Insurance Name Policy Number Policy Vincent Covered Member ID Vincent Member ID Guarantor Name 07/14/2021 1 [facility] (MEDICARE REPLACEMENT/A DVANTAGE - PPO) [id number] Eron Escudero [id number] Eron Escudero 07/02/2023 1 [facility] (MEDICARE REPLACEMENT/A DVANTAGE - PPO) [id number] Eron Collazo Znoj [id number] Eron Znoj Notes Date Note Type Note [...] Henderson NP [address] [place], [address], [place] - [facility] 07/02/2023 18:04:20
--- OUTSIDE RECORDS SUMMARY | 2024-12-16 16:17 | XMS_ITS | Clinical Summary ---
Author Organization [facility] [address] [facility] Address [address] [place] [address] Phone Care Team Providers Care Traffic Lieutenant Name Role Phone Moses Duran Primary Care Provider [phone] Allergies No known active allergies Medications aspirin [...] novel coronavirus disease (COVID -19) 09/13/2021 Claudication ([facility] V24) 12/15/2020 Stage 3a chronic kidney disease ([facility] V24, CM S/[facility] V28) 12/15/2020 Varicose veins of left leg with edema 12/17/2018 Depression 08/05/2012 Type 2 diabetes, diet controlled ([facility] V24, C ID/[facility] V28) 02/02/2012 Peripheral vascular disease ([facility] V24) 2008 Herniated lumbar intervertebral disc 01/15/2008 Coronary atherosclerosis of yuhaaviatam coronary vess el 06/04/2007 Overview (07/03/2024): Followed by dr. sim Prev Cath did need intervention Pure hypercholesterolemia 10/18/2006 Encounters Date Type Department Care Team Description 11/14/2024 Telephone Adult Medicine [address] [phone] Moses Duran, PA provider call back 11/13/2024 3:52 PM EDT - 11/13/2024 11:59 PM EDT Hospital Encounter Radiology Department - [address] [phone] Stage 3a chronic kidney disease ([facility] V24, [facility] V28); Benign prostatic hyperplasia, unspecified whether lower urinary tract symptoms present Discharge Disposition: Home or Self Care 11/05/2024 Telephone Adult Medicine [address] [phone] Moses Duran PA 11/04/2024 3:00 PM EDT Lab Draw Station [address] Screening for malignant neoplasm of colon; Type 2 diabetes, diet controlled ([facility] V24, [facility] V28); Stage 3a chronic kidney disease ([facility] V24, [facility] V28); Peripheral vascular disease ([facility] V24); Pure hypercholesterolemia; Elevated prostate specific antigen (PSA); Benign prostatic hyperplasia, unspecified whether lower urinary tract symptoms present; Abnormal level of blood mineral; Abnormal finding of blood chemistry, unspecified 11/04/2024 2:30 PM EDT Office Visit Adult Medicine [address] [phone] Moses Duran, PA Type 2 diabetes, diet controlled ([facility] V24, [facility] V28) (Primary Dx); Screening for malignant neoplasm of colon; Stage 3a chronic kidney disease ([facility] V24, [facility] V28); Peripheral vascular disease ([facility] V24); Pure hypercholesterolemia; Elevated prostate specific antigen (PSA); Atherosclerosis of yuhaaviatam coronary 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, unspecified whether yuhaaviatam or transplanted heart ([facility] V24); Benign prostatic hyperplasia, unspecified whether lower urinary tract symptoms present 11/04/2024 Telephone Adult Medicine [address] [phone] Moses Duran PA 10/31/2024 Telephone Adult Medicine [address] [phone] Moses Duran PA Labs Only ([facility] [...] 10/18/2006 DX:Pur e hypercholesterolemia Coronary atherosclerosis of yuhaaviatam coronary artery 06/04/2007 DX:Coronary atherosclerosis of yuhaaviatam coronary artery Herniated lumbar intervertebral disc 01/15/2008 DX:Herniated lumbar intervertebral disc Peripheral vascular disease ([facility] V24) 02/09/2009 DX:Peripheral vascular disea se ([facility]) Type 2 diabetes, diet contro lled (CMS/HCC V24, CMS/HCC V28) 02/02/2012 DX:Type 2 diabetes, diet co ntrolled ([facility]) Depression 08/05/2012 DX:Depression Family History [...] for your loved ones. For example, child care coordinator or elderly care for an older adult? [...] Description 01/14/2025 12:30 PM EDT Appointment [facility] [address] [place] [phone] Jb Gage MD [address] [facility] [address] [place] [address] 04/07/2025 3:30 PM EDT Office Visit Adult Medicine [facility] [address] [place] [address] Moses Duran PA [address] [place] [address] Health Maintenance Due Date Last Done Comments [...] Procedure Name Priority Date/Time Associated Diagnosis Comments EXTERNAL VASCULAR ULTRASOUND 12/12/2024 EXTERNAL VASCULAR ULTRASOUND 12/12/2024 BASIC METABOLIC PANEL Routine 11/25/2024 12:21 PM EDT Type 2 diabetes, diet controlled ([facility] V24, [facility] V28) Elevated PSA Stage 3a chronic kidney disease ([facility] V24, CMS/[facility] V28) Pure hypercholesterolemia Atherosclerosis of yuhaaviatam 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 Anatomical Region Laterality Modality Ultrasound us Provider [facility] CV VASCULAR PROCEDURES F inal Result * (ABNORMAL) Basic metabolic panel (11/25/2024 12:21 PM EDT) Sodium 136 133 - 145 mmol/L LAB CHEMISTRY METHOD 11/25/2024 3:36 PM [facility] Potassium 5.1 3.5 - 5.5 mmol/L LAB CHEMISTRY METHOD 11/25/2024 3:36 PM [facility] Chloride 106 96 - 110 mmol/L LAB CHEMISTRY METHOD 11/25/2024 3:36 PM [facility] CO2 26 21 - 32 mmol/L LAB CHEMISTRY METHOD 11/25/2024 3:36 PM [facility] Anion Gap 4 3 - 11 LAB CHEMISTRY METHOD 11/25/2024 3:36 PM [facility] Glucose 209(H) 70 - 100 mg/dL LAB CHEMISTRY METHOD 11/25/2024 3:36 PM [facility] BUN 27(H) 5 - 25 mg/dL LAB CHEMISTRY METHOD 11/25/2024 3:36 PM EDT [facility] Creatinine 1.90(H) 0.70 - 1.30 mg/dL LAB CHEMISTRY METHOD 11/25/2024 3:36 PM EDT [facility] eGFR 36(L) >=60 mL/min/1. 73m2 LAB CHEMISTRY METHOD 11/25/2024 3:36 PM EDT [facility] Comment:Calculation based on the??Chronic Kidney Disease Epidemiology Collaboration (CKD-EPI) equation refit??without adjustment for race. BUN/Creatinine Ratio 14.2 LAB CHEMISTRY METHOD 11/25/2024 3:36 PM EDT [facility] Calcium 9.2 8.5 - 10.5 mg/dL LAB CHEMISTRY METHOD 11/25/2024 3:36 PM EDT [facility] Blood Venous blood specimen / Unknown Venipuncture / Unknown 11/25/2024 12:21 PM EDT 11/25/2024 12:21 PM EDT us Moses MIXON LAB BLOOD ORDERABLES Flor mccabe Result [facility] [address] [place] [address], [place] [phone] * US Retroperitoneal Complete (11/13/2024 4:23 PM EDT) Anatomical Region Laterality Modality Body Ultrasound 11/13/2024 7:58 PM EDT Impressions 11/13/2024 8:05 PM EDT No hydronephrosis. ??Small right renal cysts. Marked prostatomegaly. ?? POS - [id number] -------- FINAL REPORT -------- Dictated By: Juanita Garcia Dictated Date: 11/13/2024 19:58 ET Assigned Physician: Juanita Garcia Reviewed and Electronically Signed By: Juanita Garcia Signed Date: 11/13/2024 20:05 ET Workstation ID: [id number] Transcribed By: Self Edit Transcribed Date: 11/13/2024 [...] right renal cysts. Marked prostatomegaly. POS - [id number] -------- FINAL REPORT -------- Dictated By: Juanita Garcia Dictated Date: 11/13/2024 19:58 ET Assigned Physician: Juanita Garcia Reviewed and Electronically Signed By: Juanita Garcia Signed Date: 11/13/2024 20:05 ET Workstation ID: [id number] Transcribed By: Self Edit Transcribed Date: 11/13/2024 19:58 ET Moses MIXON IMG US PROCEDURES Final R esult * (ABNORMAL) Microalbumin creatinine urine ratio (11/04/2024 3:05 PM EDT) Creatinine, Urine 99.0 mg/dL LAB CHEMISTRY METHOD 11/04/2024 7:44 PM EDT [facility] Microalb, Ur 64.4(H) 0.0 - 29.0 mg/L LAB CHEMISTRY METHOD 11/04/2024 7:44 PM EDT [facility] Microalb/Crea t Ratio 65(H) <30 mg/g creat LAB CHEMISTRY METHOD 11/04/2024 7:44 PM EDT [facility] Urine Urine specimen obtained by clean catch procedure / Unknown Non-blood Collection / Unknown 11/04/2024 3:05 PM EDT 11/04/2024 3:05 PM EDT Moses MIXON LAB URINE ORDERABLES Flor l Result [facility] [address] [place] [address], * (ABNORMAL) PSA total, free and complexed (11/04/2024 3:00 PM EDT) PSA 5.20(H) 0.00 - 4.00 ng/mL LAB CHEMISTRY METHOD 11/04/2024 7:45 PM EDT [facility] PSA, Complexed 3.22(H) 0.00 - 3.00 ng/mL LAB CHEMISTRY METHOD 11/04/2024 7:45 PM EDT [facility] PSA, Free 2.0 ng/mL LAB CHEMISTRY METHOD 11/04/2024 7:45 PM EDT [facility] PSA, Free Pct 38.5 >25.0 % LAB CHEMISTRY METHOD 11/04/2024 7:45 PM EDT [facility] Blood Venous blood specimen / Unknown Venipuncture / Unknown 11/04/2024 3:00 PM EDT 11/04/2024 3:00 PM EDT [facility] - 11/04/2024 7:45 PM [...] MIXON LAB BLOOD ORDERABLES Flor mccabe Result [facility] [address] [place] [address], * (ABNORMAL) Lipid panel with reflex to direct LDL (11/04/2024 3:00 PM EDT) Cholesterol 176 0 - 200 mg/dL LAB CHEMISTRY METHOD 11/04/2024 6:45 PM EDT [facility] Triglycerides 231(H) 0 - 150 mg/dL LAB CHEMISTRY METHOD 11/04/2024 6:45 PM EDT [facility] HDL 64 >=40 mg/dL LAB CHEMISTRY METHOD 11/04/2024 6:45 PM EDT [facility] LDL Calculated 66 0 - 100 mg/dL LAB CHEMISTRY METHOD 11/04/2024 6:45 PM EDT [facility] VLDL Cholesterol Anant 46.2 mg/dL LAB CHEMISTRY METHOD 11/04/2024 6:45 PM EDT [facility] Non HDL Chol. (LDL+VLDL) 112 <145 mg/dL LAB CHEMISTRY METHOD 11/04/2024 6:45 PM EDT [facility] Chol/HDL Ratio 2.8 0.0 - 4.4 LAB CHEMISTRY METHOD 11/04/2024 6:45 PM EDT [facility] Blood Venous blood specimen / Unknown Venipuncture / Unknown 11/04/2024 3:00 PM EDT 11/04/2024 3:00 PM EDT Moses MIXON LAB BLOOD ORDERABLES Flor l Result Performing Organization Address [facility]/ZIP Co de Phone Number [facility] [address] [place] [address], [place] [phone] * (ABNORMAL) Hemoglobin A1c (11/04/2024 3:00 PM EDT) Hemoglobin A1C 8.3(H) <6.5 % LAB CHEMISTRY METHOD 11/04/2024 9:08 PM EDT [facility] Mean Bld Glu Estim. 192 mg/dL LAB CHEMISTRY METHOD 11/04/2024 9:08 PM EDT [facility] Blood Venous blood specimen / Unknown Venipuncture / Unknown 11/04/2024 3:00 PM EDT 11/04/2024 3:00 PM EDT Moses MIXON LAB BLOOD ORDERABLES Flor l Result [facility] [address] [place] [address], [place] [phone] * (ABNORMAL) Comprehensive metabolic panel (11/04/2024 3:00 PM EDT) Sodium 138 133 - 145 mmol/L LAB CHEMISTRY METHOD 11/04/2024 6:45 PM [facility] Potassium 5.0 3.5 - 5.5 mmol/L LAB CHEMISTRY METHOD 11/04/2024 6:45 PM [facility] Chloride 107 96 - 110 mmol/L LAB CHEMISTRY METHOD 11/04/2024 6:45 PM [facility] CO2 25 21 - 32 mmol/L LAB CHEMISTRY METHOD 11/04/2024 6:45 PM [facility] Anion Gap 6 3 - 11 LAB CHEMISTRY METHOD 11/04/2024 6:45 PM [facility] Glucose 186(H) 70 - 100 mg/dL LAB CHEMISTRY METHOD 11/04/2024 6:45 PM [facility] BUN 32(H) 5 - 25 mg/dL LAB CHEMISTRY METHOD 11/04/2024 6:45 PM [facility] Creatinine 1.90(H) 0.70 - 1.30 mg/dL LAB CHEMISTRY METHOD 11/04/2024 6:45 PM [facility] eGFR 36(L) >=60 mL/min/1. 73m2 LAB CHEMISTRY METHOD 11/04/2024 6:45 PM [facility] Comment:Calculation based on the??Chronic Kidney Disease Epidemiology Collaboration (CKD-EPI) equation refit??without adjustment for race. BUN/Creatinine Ratio 16.8 LAB CHEMISTRY METHOD 11/04/2024 6:45 PM [facility] Calcium 9.7 8.5 - 10.5 mg/dL LAB CHEMISTRY METHOD 11/04/2024 6:45 PM [facility] AST (SGOT) 20 10 - 42 unit/L LAB CHEMISTRY METHOD 11/04/2024 6:45 PM [facility] ALT (SGPT) 27 10 - 60 unit/L LAB CHEMISTRY METHOD 11/04/2024 6:45 PM [facility] Alkaline Phosphatase 87 42 - 121 unit/L LAB CHEMISTRY METHOD 11/04/2024 6:45 PM EDT [facility] Total Protein 7.3 6.0 - 8.0 g/dL LAB CHEMISTRY METHOD 11/04/2024 6:45 PM EDT [facility] Albumin 4.1 3.2 - 5.0 g/dL LAB CHEMISTRY METHOD 11/04/2024 6:45 PM EDT [facility] Total Bilirubin 0.5 0.0 - 1.4 mg/dL LAB CHEMISTRY METHOD 11/04/2024 6:45 PM EDT [facility] Blood Venous blood specimen / Unknown Venipuncture / Unknown 11/04/2024 3:00 PM EDT 11/04/2024 3:00 PM EDT Moses MIXON LAB BLOOD ORDERABLES Flor l Result [facility] [address] [place] [address], * Depression Screening (06/13/2024) [facility] Depression Screening abstracted Historical Provider HEALTH MAINTENANCE Final Result * Diabetes Foot Exam (06/13/2024) [facility] Diabetes: Annual Foot Exam abstracted Historical Provider HEALTH MAINTENANCE Final Result * Diabetes Eye Exam (05/23/2024) [facility] Diabetes: Annual Retina Eye Exam abstracted Historical Provider HEALTH MAINTENANCE Final Result * CT LUNG SCREENING LOW DOSE (05/01/2024 2:34 PM EDT) Anatomical Region Laterality Modality Computed Tomogra phy 04/30/2024 3:41 PM EDT Narrative 05/01/2024 2:34 PM EDT [facility] Diagnostic Imaging Department [address] [place] [address] Patient: ??YOKASTA ESCUDERO ?/Age/Sex: 1950 - 73 - M Unit#: ??[id number] ? Location/Status: ??SPDICATLS/REG CLI ? Mnemonic/Ordering Site: [...] Note Devin Rivera MD - 05/28/2024 [facility] Diagnostic Imaging Department [address] [place] [address] Patient: KANAYOKASTA /Age/Sex: 1950 - 73 - M Unit#: [id number] Location/Status: SPDICATLS/REG CLI Mnemonic/Ordering Site: [facility] Ordering Physician: TIMBO GALAN MD CT [...] Date/Time: 05/01/24 1341 Sign date/Time: 05/01/24 1434 Result [facility] Timbo Galan MD IMG CT PROCEDURES Final Result * Falls Risk Assessment (12/10/2023) Pathologist [facility] Falls Risk Assessment abstracted Result [facility] Provider HEALTH MAINTENANCE Final Result * Abdominal Aortic Aneurysm Screen (07/19/2016) Pathologist [facility] Abdominal Aortic Aneurysm (AAA) Screening abstracted Anatomical Region Laterality Modality Other Result [facility] Provider HEALTH MAINTENANCE Final Result * Hepatitis C Screening (01/18/2013) Pathologist [facility] Hepatitis C Screening abstracted Result [facility] MAINTENANCE Final Result from Last 3 Months or Most Recently Relevant to Health Maintenance Insurance [employer] [place] [address] Care Teams Traffic Lieutenant Relationship Specialty Start Date End Date Moses Duran PA [address] [place] [address] PCP - General Internal Medicine 10/19/20
== END 2024-12-16 15:27 | disposition home or self-care (01) ==
LOC: HO.HVS 15:05
PROVIDERS: PCP Physician Assistant Medical; Visit Provider Surgery Vascular Surgery
DX: I73.9 Peripheral vascular disease, unspecified (principal)
CPT/HCPCS: 99214

== ENCOUNTER → 2024-12-16 15:03 | Outpatient (BNVA) | payer MEDICARE, SELFPAY | PROVIDERS: PCP Physician Assistant Medical; Visit Provider Surgery Vascular Surgery | DX: I73.9 Peripheral vascular disease, unspecified (principal) | CPT/HCPCS: 99212 ==

== ENCOUNTER 2024-12-24 07:31 | Day surgery (SDC) | payer MEDICARE, SELFPAY ==
--- OUTSIDE RECORDS SUMMARY | 2024-12-18 15:43 | XMS_ITS | Data Portability ---
Author Organization [place] [facility] Leila Garcia [facility] [place] Address [address] [place] [address] Care Team Providers Care Railway Switchman Name Role Phone MARICRUZ OROZCO Primary Care [...] his vascular doctor for a follow up. [email or web address] Not available 08/23/2023 12:08:20 Plan of Treatment Reminders Order Date Submit Date Provider Last Modified By Organization Details Last Modified Time Details Appointments None recorded. Lab None recorded. Referral None recorded. Procedures None recorded. Surgeries None recorded. Imaging XR, ankle, 3 or more view 2023 024 [email or web address] [facility], [address], [place], [address], 4 12:43:18 XR, foot, 2 view 2023 024 [email or web address] [facility], [address], [place], [address], 4 12:43:18 US, duplex, venous, lower extremity - ro DVT RLE, 2+ pitting edema 2023 024 [email or web address] Not available 4 08:54:33 Medication Orders None recorded. Patient TargetsNo targets recorded. Patient Instructions Encounter Date Encounter Id Patient Instructions Last Modified By Organization Details Last Modified Time 08/23/2023 [id number] Weightbearing x-rays of the right foot and ankle were obtained in the [place] office on 08/13/2023 which demonstrates hallux valgus deformity with an angle of 33 degrees and an intermetatarsal angle of 20 degrees. Question of avulsion fracture of the distal fibula versus chronic osteophyte. Mortise is in anatomic alignment. [email or web address] Not available 08/23/2023 12:09:27 Reason for Referral None Reported. Problems Name Problem SNOMED Code Status Onset Date Resolution Date Notes Provider Name and Address Organization Details Recorded Time Swelling of lower leg 024364071 Active 2023 LUIS GARIBAY PA-C [address], [place], [address], [place] [facility] 4 11:31:56 Sprain of right ankle 725806843581828 05 Active 2023 LUIS GARIBAY PA-C [address], [place], [address], [place] [facility] 4 12:08:34 Problem Notes None recorded. Procedures Surgical History Date Name Laterality Status Provider Name and Address Organization Details Recorded Time Stent completed Daniel Salguero [place] - [facility] 08/23/2023 10:58:30 Imaging Results None recorded. [...] Updated DateTime 08/23/2023 193.04 cm 26.8 kg/m2 95290.[address] [place] [facility] 08/23/2023 10:57:48 Social History None recorded. Functional Status None recorded. Mental Status None recorded. Family History Nothing Reported. Medical History Condition Response Hypertension Y Past Encounters Encounter ID Performer Location Encounter Start Date Encounter Closed Date Diagnosis/Indication Diagnosis SNOMED-CT Code Diagnosis ICD10 Code Diagnosis Note [id number] LUSI GARIBAY PA-C [address] [phone] 08/23/2023 10:35:28 08/23/2023 11:45:31 Pain of right ankle joint 0386590147 5310130 M25.571 Swelling of lower leg 44 2424732 R22.41 Sprain of right ankle 11 22274444 6177966 S93.401A Health Concerns Section Related Observation LastModified by Organization Detai ls LastModified Time None Recorded Concern Status LastModified by Organization Details LastModified Time None Recorded Advance Directives Directive None Recorded Payers Encounter Date Sequence Insurance Name Policy Number Policy Vincent Covered Member ID Vincent Member ID Guarantor Name 08/23/2023 1 [facility] (MEDICARE REPLACEMENT/A DVANTAGE - PPO) [id number] Eron Escudero [id number] Eron Escudero Notes Date Note Type Note [...] lateral ankle pain. He did go to [facility] urgent care on 02 July and was [...] Vera Cameron MD [address], [place], [address], [place] [facility] 08/28/2023 20:30:12
--- OUTSIDE RECORDS SUMMARY | 2024-12-18 15:43 | XMS_ITS | Clinical Summary ---
Author Organization [facility] [address] [facility] Address [address] [place] [address] Phone Care Team Providers Care Senior Medical Transcriptionist Name Role Phone Moses Duran Primary Care Provider [phone] Allergies No known active allergies Medications aspirin [...] novel coronavirus disease (COVID -19) 09/13/2021 Claudication ([facility] V24) 12/15/2020 Stage 3a chronic kidney disease ([facility] V24, CM S/[facility] V28) 12/15/2020 Varicose veins of left leg with edema 12/17/2018 Depression 08/05/2012 Type 2 diabetes, diet controlled ([facility] V24, [place]/[facility] V28) 02/02/2012 Peripheral vascular disease ([facility] V24) 2008 Herniated lumbar intervertebral disc 01/15/2008 Coronary atherosclerosis of [place] coronary vess el 06/04/2007 Overview (07/03/2024): Followed by dr. sim Prev Cath did need intervention Pure hypercholesterolemia 10/18/2006 Encounters Date Type Department Care Team Description 12/18/2024 Telephone Gastroenterology - [place] [facility] [address] [facility] [address] [place] [address] Karly Dhillon LPN Anticoagulation (Colonoscopy on 01/14/[address] Gage) 11/14/2024 Telephone Adult Medicine [address] [phone] Moses Duran PA provider call back 11/13/2024 3:52 PM EDT - 11/13/2024 11:59 PM EDT Hospital Encounter Radiology Department - [address] [address] Stage 3a chronic kidney disease ([facility] V24, [facility] V28); Benign prostatic hyperplasia, unspecified whether lower urinary tract symptoms present Discharge Disposition: Home or Self Care 11/05/2024 Telephone Adult Medicine [address] [place] [phone] Moses Duran PA 11/04/2024 3:00 PM EDT Lab Draw [address] Screening for malignant neoplasm of colon; Type 2 diabetes, diet controlled ([facility] V24, CMS/HCC V28); Stage 3a chronic kidney disease ([facility]/HCC V24, CMS/HCC V28); Peripheral vascular disease ([facility]/HCC V24); Pure hypercholesterolemia; Elevated prostate specific antigen (PSA); Benign prostatic hyperplasia, unspecified whether lower urinary tract symptoms present; Abnormal level of blood mineral; Abnormal finding of blood chemistry, unspecified 11/04/2024 2:30 PM EDT Office Visit Adult [address] [phone] Moses Duran PA Type 2 diabetes, diet controlled ([facility]/HCC V24, CMS/HCC V28) (Primary Dx); Screening for malignant neoplasm of colon; Stage 3a chronic kidney disease ([facility]/HCC V24, CMS/HCC V28); Peripheral vascular disease ([facility]/HCC V24); Pure hypercholesterolemia; Elevated prostate specific antigen (PSA); Atherosclerosis of [place] coronary 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, unspecified whether [place] or transplanted heart ([facility] V24); Benign prostatic hyperplasia, unspecified whether lower urinary tract symptoms present 11/04/[address] [phone] Moses Duran PA 10/31/2024 Telephone Adult [address] [phone] Moses Duran PA Labs Only (CHG ASSAY OF PROSTATE SPECIFIC ANTIGEN FREE , MICROALBUMIN/CREATININ E, URINE , CHG COMPREHENSIVE METABOLIC PANEL , [...] HISTORICAL KNEE SURGERY; COMMENT: arthroscopic surgery COLONOSCOPY 2004 PROCEDURE: HISTORICAL COLONOSCOPY; COMMENT: [facility], negative examination. COLONOSCOPY 2015 PROCEDURE: HISTORICAL COLONOSCOPY; COMMENT: Low risk adenomas [...] 10/18/2006 DX:Pur e hypercholesterolemia Coronary atherosclerosis of [place] coronary artery 06/04/2007 DX:Coronary atherosclerosis of [place] coronary artery Herniated lumbar intervertebral disc 01/15/2008 DX:Herniated lumbar intervertebral disc Peripheral vascular disease ([facility] V24) 02/09/2009 DX:Peripheral vascular disea se ([facility]) Type 2 diabetes, diet contro lled ([facility] V24, [facility] V28) 02/02/2012 DX:Type 2 diabetes, diet co ntrolled ([facility]) Depression 08/05/2012 DX:Depression Family History Medical [...] care for your loved ones. For example, children's ministries director or elderly care for an older adult? [...] Contact Info) Description 01/14/2025 12:30 PM EDT Hospital Encounter [facility] [address] [place] [phone] Jb Gage MD [address] [address] 04/07/2025 3:30 PM EDT Office Visit Adult Medicine [facility] [address] [place] [phone] Moses Duran PA [address] [place] [address] Health Maintenance Due Date Last Done Comments [...] VASCULAR ULTRASOUND 12/12/2024 EXTERNAL VASCULAR ULTRASOUND 12/12/2024 EXTERNAL VASCULAR ULTRASOUND 12/12/2024 EXTERNAL ULTRASOUND REPORT 12/12/2024 BASIC METABOLIC PANEL Routine 11/25/2024 12:21 PM EDT Type 2 diabetes, diet controlled (CMS/HCC V24, CMS/HCC V28) Elevated PSA Stage 3a chronic kidney disease (CMS/HCC V24, CMS/HCC V28) Pure hypercholesterolemia Atherosclerosis of [place] coronary 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, unspecified whether [place] or transplanted heart (CMS/HCC V24) Benign prostatic [...] of colon Type 2 diabetes, diet controlled ([facility] V24, [facility] V28) Stage 3a chronic kidney disease ([facility] V24, [facility] V28) Peripheral vascular disease ([facility] V24) Pure hypercholesterolemia DEPRESSION SCREENING Routine 06/13/2024 DIABETES FOOT EXAM [...] Vascular Ultrasound (12/12/2024) Only the most recent of3 resultswithin the time period is included. Anatomical Region Laterality Modality Ultrasound us Provider [facility] CV VASCULAR PROCEDURES F inal Result * External Ultrasound Report (12/12/2024) Anatomical Region Laterality Modality Ultrasound us Provider [facility] IMG US PROCEDURES Final Result * (ABNORMAL) Basic metabolic panel (11/25/2024 12:21 PM EDT) Sodium 136 133 - 145 mmol/L LAB CHEMISTRY METHOD 11/25/2024 3:36 PM EDT [facility] Potassium 5.1 3.5 - 5.5 mmol/L LAB CHEMISTRY METHOD 11/25/2024 3:36 PM EDT [facility] Chloride 106 96 - 110 mmol/L LAB CHEMISTRY METHOD 11/25/2024 3:36 PM EDT [facility] CO2 26 21 - 32 mmol/L LAB CHEMISTRY METHOD 11/25/2024 3:36 PM EDT [facility] Anion Gap 4 3 - 11 LAB CHEMISTRY METHOD 11/25/2024 3:36 PM EDT [facility] Glucose 209(H) 70 - 100 mg/dL LAB CHEMISTRY METHOD 11/25/2024 3:36 PM EDT [facility] BUN 27(H) 5 - 25 mg/dL LAB CHEMISTRY METHOD 11/25/2024 3:36 PM EDT [facility] Creatinine 1.90(H) 0.70 - 1.30 mg/dL LAB CHEMISTRY METHOD 11/25/2024 3:36 PM EDT [facility] eGFR 36(L) >=60 mL/min/1. 73m2 [...] Result [facility] [address] [place] [address], [place] [phone] * US Retroperitoneal Complete (11/13/2024 4:23 PM EDT) Anatomical Region Laterality Modality Body Ultrasound 11/13/2024 7:58 PM EDT Impressions 11/13/2024 8:05 PM EDT No hydronephrosis. ??Small right renal cysts. Marked prostatomegaly. ?? POS - [id number] -------- FINAL REPORT -------- Dictated By: Juanita Garcia Dictated Date: 11/13/2024 19:58 ET Assigned Physician: Juanita Garcia Reviewed and Electronically Signed By: Juanita Garcia Signed Date: 11/13/2024 20:05 ET Workstation ID: [id number] Transcribed By: Self Edit Transcribed Date: 11/13/2024 [...] right renal cysts. Marked prostatomegaly. POS - [id number] -------- FINAL REPORT -------- Dictated By: Juanita Garcia Dictated Date: 11/13/2024 19:58 ET Assigned Physician: Juanita Garcia Reviewed and Electronically Signed By: Juanita Garcia Signed Date: 11/13/2024 20:05 ET Workstation ID: [id number] Transcribed By: Self Edit Transcribed Date: 11/13/2024 [...] Result [facility] [address] [place] [address], * (ABNORMAL) PSA total, free and complexed [...] 3:00 PM EDT 11/04/2024 3:00 PM EDT Narrative [facility] - 11/04/2024 7:45 PM EDT Free PSA is a calculated value. ??The diagnostic usefulness of % free PSA has not been established in patients with Total PSA below 2.6 or above 10 ng/mL. ?? This test was performed using the Centaur Chemiluminescent method. ??PSA values obtained with other methods cannot be used interchangeably. Moses MIXON LAB BLOOD ORDERABLES Flor l Result [facility] [address] [place] [address], [place] [phone] * (ABNORMAL) Lipid panel with reflex to [...] EDT Moses MIXON LAB BLOOD ORDERABLES Flor mccabe Result [facility] [address] [place] [address], * (ABNORMAL) Hemoglobin A1c (11/04/2024 3:00 PM EDT) Hemoglobin A1C 8.3(H) <6.5 % LAB CHEMISTRY METHOD 11/04/2024 9:08 PM EDT [facility] Mean Bld Glu Estim. 192 mg/dL LAB CHEMISTRY METHOD 11/04/2024 9:08 PM EDT [facility] Blood Venous blood specimen / Unknown Venipuncture / Unknown 11/04/2024 3:00 PM EDT 11/04/2024 3:00 PM EDT us Moses MIXON LAB BLOOD ORDERABLES Flor l Result [facility] [address] [place] [address], * (ABNORMAL) Comprehensive metabolic panel (11/04/2024 3:00 PM EDT) Sodium 138 133 - 145 mmol/L LAB CHEMISTRY METHOD 11/04/2024 6:45 PM EDT [facility] Potassium 5.0 3.5 - 5.5 mmol/L LAB CHEMISTRY METHOD 11/04/2024 6:45 PM EDT [facility] Chloride 107 96 - 110 mmol/L LAB CHEMISTRY METHOD 11/04/2024 6:45 PM [facility] CO2 25 21 - 32 mmol/L LAB CHEMISTRY METHOD 11/04/2024 6:45 PM [facility] Anion Gap 6 3 - 11 LAB CHEMISTRY METHOD 11/04/2024 6:45 PM [facility] Glucose 186(H) 70 - 100 mg/dL LAB CHEMISTRY METHOD 11/04/2024 6:45 PM [facility] BUN 32(H) 5 - 25 mg/dL LAB CHEMISTRY METHOD 11/04/2024 6:45 PM [facility] Creatinine 1.90(H) 0.70 - 1.30 mg/dL LAB CHEMISTRY METHOD [facility]/04[facility]24 [facility] 36(L) >=60 mL/min/1. 73m2 LAB CHEMISTRY METHOD 11/04/2024 6:45 PM [facility] Comment:Calculation based on the??Chronic Kidney Disease Epidemiology Collaboration (CKD-EPI) equation refit??without adjustment for race. BUN/Creatinine Ratio 16.8 LAB CHEMISTRY METHOD 11/04/2024 6:45 PM T [facility] Calcium 9.7 8.5 - 10.5 mg/dL LAB CHEMISTRY METHOD 11/04/2024 6:45 PM EDT [facility] AST (SGOT) 20 10 - 42 unit/L LAB CHEMISTRY METHOD 11/04/2024 6:45 PM EDT [facility] ALT (SGPT) 27 10 - 60 unit/L LAB CHEMISTRY METHOD 11/04/2024 6:45 PM EDT [facility] Alkaline Phosphatase 87 42 - 121 unit/L LAB CHEMISTRY METHOD 11/04/2024 6:45 PM EDT [facility] Total Protein 7.3 6.0 - 8.0 g/dL LAB CHEMISTRY METHOD 11/04/2024 6:45 PM EDT [facility] Albumin 4.1 3.2 - 5.0 [...] MIXON LAB BLOOD ORDERABLES Flor l Result [facility] [address] [place] [address], * Depression Screening (06/13/2024) Pathologist [facility] Depression Screening abstracted Historical Provider HEALTH MAINTENANCE Final Result * Diabetes Foot Exam (06/13/2024) [facility] Diabetes: Annual Foot Exam abstracted Historical Provider HEALTH MAINTENANCE Final Result * Diabetes Eye Exam (05/23/2024) Diabetes: Annual Retina Eye Exam abstracted us Historical Provider HEALTH MAINTENANCE Final Result * CT LUNG SCREENING LOW DOSE (05/01/2024 2:34 PM EDT) Anatomical Region Laterality Modality Computed Tomogra phy 04/30/2024 3:41 PM EDT Narrative 05/01/2024 2:34 PM EDT [facility] Diagnostic Imaging Department [address] [place], [place] [address] Patient: ??YOKASTA ESCUDERO ?/Age/Sex: 1950 - 73 - M Unit#: ??[id number] ? Location/Status: ??SPDICATLS/REG CLI ? Mnemonic/Ordering Site: ??CTLUNGLD/SPCT Ordering Physician: ??TIMBO GALAN MD CT Lung Screening Low Dose - 04/30/24 - 9553 Report Status:Signed Chest CT, 05/01/2024 1:41 PM. [...] Procedure Note Devin Rivera MD - 05/28/2024 [facility] Diagnostic Imaging Department [address] [place] [address] Patient: LEONELYOKASTA Trivedi /Age/Sex: 1950 - 73 - M Unit#: [id number] [facility] CLI Mnemonic/Ordering Site: [facility] Ordering Physician: TIMBO GALAN MD CT Lung Screening Low Dose - 04/30/24 - 2454 Report Status:Signed Chest CT, 05/01/2024 1:41 PM. [...] 05/01/24 1341 Sign date/Time: 05/01/24 1434 Result [facility] Timbo Galan MD IMG CT PROCEDURES Final Result * Falls Risk Assessment (12/10/2023) [facility] Falls Risk Assessment abstracted Result [facility] Final Result * Abdominal Aortic Aneurysm Screen (07/19/2016) [facility] Abdominal Aortic Aneurysm (AAA) Screening abstracted Anatomical Region Laterality Modality Other Result [facility] Final Result * Hepatitis C Screening (01/18/2013) [facility] Hepatitis C Screening abstracted Result [facility] Fabricio Amador MD HEALTH MAINTENANCE Final Result from Last 3 Months or Most Recently Relevant to Health Maintenance Insurance [employer] MEDICARE Care Teams Senior Medical Transcriptionist Relationship Specialty Start Date End Date Moses Duran PA [address] [place] [address] PCP - General Internal Medicine 10/19/20
--- OUTSIDE RECORDS SUMMARY | 2024-12-18 15:43 | XMS_ITS | Data Portability ---
Author Organization [facility]AL [facility] [address] Address [address] [place] [address] Assessment No assessment recorded. Plan of Treatment Reminders Order Date Submit Date Provider Last Modified By Organization Details Last Modified Time Details Appointments None recorded. Lab None recorded. Referral orthopedic surgeon referral - avulsion fracture right lateral malleolus. need further evaluation and treatment. 2022 023 [email or web address] [facility], [address], [place], [address], 08:17:51 Procedures None recorded. Surgeries None recorded. Imaging XR, ankle, 3 or more view 2022 023 [facility], [address] [place], [address], 17:52:34 XR, foot, 3 or more view 2022 023 [facility], [address] [place], [address], 17:52:26 Medication Orders None recorded. Patient TargetsNo targets recorded. Patient Instructions Encounter Date Encounter Id Patient Instructions Last Modified By Organization Details Last Modified Time 07/02/2023 [id number] foot pain: care instructions deb Not available [...] ed. deb [facility] [address] [place], [address], 07/02/2023 17:54:07 07/02/20 23 07/02/2023 XR, ankle , 3 or more view No observ ation record ed. [email or web address] [facility] [address] [place], [address], 07/02/2023 17:54:07 Result Notes None recorded. Problems Name Problem SNOMED Code Status Onset Date Resolution Date Notes Provider Name and Address Organization Details Recorded Time Hypertensive disorder 63145085 Active DENITA MINEO null, [place] - [facility] 3 16:30:37 Diabetes mellitus 70748191 Active DENITA MINEO null, [place] - [facility] 3 16:30:45 Hyperlipidemia 24001420 Active DENITA MINEO null, [place] - [facility] 3 16:31:06 Heart disease 65314152 Active DENITA MINEO null, [facility] - [facility] [...] XR, foot, 3 or more view [facility] [address] [place], [address], 07/02/2023 17:54:07 07/02/2023 XR, ankle, 3 or more view completed [email or web address] [address] [place], [address], 07/02/2023 17:54:07 Procedure Notes None recorded. Medical [...] Updated DateTime 3 193.04 cm 26.8 kg/m2 32403.3 2 g 100 % 100 % 65 [...] SNOMED-CT Code Diagnosis ICD10 Code Diagnosis Note [id number] [facility] [address] [place] [address] 07/14/2021 15:12:08 07/14/2021 17:29:03 [id number] [place] [address] [place] [address] 07/02/2023 16:17:47 07/02/2023 17:36:19 Sprain of right ankle 6471430990 1900186 S93.401A Pain in right foot 40[address] 66165 25598 M79.671 Closed fra cture of lateral malleolus 78336942 S82.61XA Health Concerns Section Related Observation LastModified by Organization Detai ls LastModified Time None Recorded Concern Status LastModified by Organization Details LastModified Time None Recorded Advance Directives Directive None Recorded Payers Insurance Date Sequence Insurance Name Policy Number Policy Vincent Covered Member ID Vincent Member ID Guarantor Name 07/16/2023 1 [facility] (MEDICARE REPLACEMENT/A DVANTAGE - PPO) [id number] Eron Escudero [id number] Eron Escudero Notes Date Note Type Note [...] affected body part Previous Treatmentnone Prior Imaging:none Lui sEduardo Henderson NP [facility] [place], [address], [place] - [facility] 07/02/2023 18:04:20
--- OUTSIDE RECORDS SUMMARY | 2024-12-18 15:43 | XMS_ITS | Encounter Summary ---
Author Organization [place] [address] Care Team Providers Care Car Filler Name Role Phone Moses Duran Primary Care Provider [phone] Reason for Visit * Reason Onset Date Comments Anticoagulation 12/18/[address] Gage Encounter Details Date Type Department Care Team (Late st Contact Info) Description 12/18/2024 Telephone Gastroenterology - [place] [address] [place] [address] Karly Dhillon LPN Anticoagulation (Colonoscopy on 01/14/[address] Gage) Social History Tobacco Use Types Packs/Day Years [...] for your loved ones. For example, child protection specialist or elderly care for an older adult? [...] on file documented as of this encounter Progress Notes * Karly Dhillon LPN - 12/18/2024 10:23 AM EDT Colonoscopy on 01/14/[address] Gage, Left msg for pt to call back, need to know who prescribes pletal. (Vascular provider?) documented in this encounter Plan of Treatment Upcoming Encounters Date Type Department Care Team (Late st Contact Info) Description 01/14/2025 12:30 PM EDT Hospital Encounter [facility] [address] [place] [address] Jb Gage MD [address] [address] 04/07/2025 3:30 PM EDT Office Visit Adult Medicine [facility] [address] [place] [address] Moses Duran PA [address] [place] [address] documented as of this encounter Visit Diagnoses Not on filedocumented in this encounter Additional Health Concerns Assessment Noted Time PHQ-9 Depression Total Score: 0 10/31/19 25 9:42 AM EDT documented as of this encounter Care Teams Car Filler Relationship Specialty Start Date End Date Moses Duran PA [address] [place] [id number] PCP - General Internal Medicine 10/19/20 documented as of this encounter
[2024-12-24] VITALS (26 sets, daily range): BP systolic 144–176; BP diastolic 70–96; PULSE 57–67; RESP 10–18; TEMP 36.2–36.9; O2SAT 96–98; BMI 26.8; BMI 26.0
[2024-12-24 07:47] LABS: Glucose, Whole Blood 173 mg/dL (60-115)
[2024-12-24] MEDS: 0.9 % Sodium Chloride 1,000 ML 100 ML IVCONT (08:14)
[2024-12-24 08:28] LABS: MANUAL DIFF FLAG NO
[2024-12-24 08:30] LABS: Basophils Percent Auto 0.3 % (0-2); Eosinophils Absolute Auto 0.2 X10*3/uL (0.0-0.4); Eosinophils Percent Auto 2.8 % (0-4); Hematocrit 42.6 % (42.0-52.0); Hemoglobin 13.9 g/dl (14.0-18.0); Imm Gran Abs Auto 0.05 X10*3/uL (0.00-0.03); Imm Gran Pct Auto 0.7 % (0.0-0.4); Lymphocytes Absolute Auto 1.5 X10*3/uL (1.2-4.9); Lymphocytes Percent Auto 21.7 % (20-40); Mean Corpuscular HGB Conc 32.6 g/dl (31.0-36.0); Mean Corpuscular Hemoglobin 31.1 pg (27.0-33.0); Mean Corpuscular Volume 95.3 fL (80.0-98.0); Mean Platelet Volume 9.7 fL (9.4-12.4); Monocytes Absolute Auto 0.8 X10*3/uL (0.1-1.2); Neutrophils Absolute Auto 4.4 x10*3/uL (2.0-8.3); Neutrophils Percent Auto 63.5 % (45-73); Platelet Count 180 X10*3/uL (160-400); Red Blood Count 4.47 X10*6/uL (4.60-5.80); Red Cell Distribution Width 12.4 % (11.0-16.0); White Blood Count 6.9 X10*3/uL (4.8-10.8)
[2024-12-24 08:53] LABS: Blood Urea Nitrogen 34 mg/dL (9-16); Creatinine Clr Calc Pharmacy 48.3; Estimated Glomerular Filt Rate 42
[2024-12-24] MEDS: Midazolam HCl 2 MG/2 ML VIAL 0.5 MG IVPUSH (10:08)
[2024-12-24] MEDS: fentaNYL citrate/PF 100 MCG/2 ML VIAL 25 MCG IVPUSH (10:09)
[2024-12-24] MEDS: Heparin Sodium,Porcine 10,000 UNIT/10 ML VIAL 8000 UNIT IVPUSH (10:27)
[2024-12-24] MEDS: Heparin Sodium,Porcine 10,000 UNIT/10 ML VIAL 1000 UNIT IVPUSH (10:37)
--- NOTE | 2024-12-24 11:52 | P.OP_ITS ---
Operative Note Operative Note Date of Service: 12/24/24 Narrative: Angiogram report from [facility] Preoperative diagnosis: Atherosclerosis of right lower extremity with activity limiting claudication Postoperative diagnosis: Same Procedure: 1. Ultrasound-guided left common femoral access 2. Aortogram with bilateral lower extremity runoff 3. Right SFA atherectomy and plasty Surgeon:Sergio Robledo M.D., FACS, RPVI Church History Teacher:None Anesthesia: Local with moderate conscious sedation. Total intraservice moderate sedation time was 70 minutes. I monitored the patient's level of consciousness and physiologic status continuously throughout the procedure. Specimens:none Drains:none Estimated blood loss: Less than 10 ml Radiation Dose: 383 mGy Implant: Medtronic Impact DCB 6 x 120, 6 x 40 Indications: Pleasant 74-year-old gentleman who is an avid golfer presents for activity limiting claudication. He now presents for endovascular intervention The patient has signed the informed consent after reviewing risks, complications, benefits, and alternatives previously discussed with the patient. The patient was given the opportunity to ask any additional questions or voice any concerns. All questions were answered to the patient's satisfaction. Procedure in detail: Patient was brought to the angiography suite prior to which a time-out was called for patient identification and site verification. Bilateral groins were prepped and draped in the standard surgical fashion. Under ultrasound guidance left common femoral was punctured with micro puncture needle and wire. Subsequently a precision 5 Azerbaijani sheath was then placed. Bentson wire was advanced to the level of the aorta. 5 Azerbaijani Flush catheter was brought up and parked at the level of the renal arteries. Aortogram was then undertaken. Catheter was brought down to the level of the iliac bifurcation. Iliacs and runoff was performed through the flush catheter that was parked at the bifurcation and a power injection was performed to visualize bilateral runoff vessels. Subsequently the catheter was then brought in up and over to the right side SFA. We were able to easily traverse lesion at the very proximal SFA and the additional lesions down below at Florencio's canal. This was crossed with an 035 glidewire Advantage. At this time 8000 units of systemic heparin was administered and an additional 1000 had to be given. Up and over 6 Azerbaijani sheath was then placed. We then confirmed true lumen with a trail Blazer catheter. At this point we exchanged out for a spider 6 wire. Once this was accomplished we used a Hawk 1 atherectomy device 1st in the distal SFA. Multip le unidirectional passes were undertaken. Once we completed that we did notice some residual stenosis. We then used a 6 x 120 drug coated balloon. This was brought into position in under 3 minutes and insufflated for a total of 3 minutes in duration. More proximally we turned our attention to just below the takeoff of the profundus into the SFA. At the SFA once again we performed a Hawk 1 atherectomy. Multiple unidirectional passes were undertaken. There was some improvement, but residual stenosis was noted. Once again we plasty this with a 6 x 40 drug coated balloon. This was brought into position in under 3 minutes and insufflated for a total of 3 minutes in duration. Once this was all accomplished catheter wire sheath was brought back to the ipsilateral side. A CELT closure device was then placed. Adequate hemostasis was achieved. Patient tolerated the procedure well. Returned to recovery with stable vitals. Interpretation of films: 1. Ultrasound demonstrates appropriate femoral access site. Vessel was patent with minimal stenosis. Needle entry was visualized. Image of ultrasound was saved. 2. Aortogram demonstrates appropriate caliber aorta. Minimal disease. Appropriate take-off of the renals. 3. Iliac images demonstrate no significant disease 4. Right Leg Common femoral artery: Mild to moderate disease. There was significant near occlusive disease just beyond the takeoff of the SFA Profundus Femoris: No significant disease Superficial femoral artery: High-grade stenosis very proximally and at Florencio's canal Popliteal artery (p1,p2,p3): No significant disease Anterior tibial artery: No named vessel but it looks like there is a large collateral supplying the entire leg Peroneal artery: Occluded Posterior tibial artery: Occluded Dorsalis pedis/plantar arch: Incomplete 5. Left Leg Common femoral artery: Mild disease Profundus Femoris: No significant disease Superficial femoral artery: Patent all the way down and prior stent was visualized which appeared to be patent Popliteal artery (p1,p2,p3): No significant disease We were unable to reflux contrast below this level through the sheath Conclusion: 1. Successful right SFA atherectomy and plasty 2. Anticoagulation status: 6 months of aspirin and Plavix This note is constructed using voice recognition software. While every effort has been made to ensure accuracy, energy manager errors may have been included. Thank you for allowing me to participate in the care of your patient. Yours sincerely, Sergio Robledo MD, FACS, R.P.V.I.
[2024-12-24] MEDS: Clopidogrel Bisulfate 300 MG TABLET PO (13:31)
[2024-12-25 10:01] LABS: ACT 236 Celite s (79-173)
[2024-12-25 10:01] LABS: ACT 197 Celite s (79-173)
== END 2024-12-24 14:06 | disposition home or self-care (01) ==
PROVIDERS: PCP Physician Assistant Medical; Visit Provider Surgery Vascular Surgery
DX: I70.211 Atherosclerosis of native arteries of extremities with intermittent claudication, right leg (principal); M79.661 Pain in right lower leg; R25.2 Cramp and spasm; I25.10 Atherosclerotic heart disease of native coronary artery without angina pectoris; I25.2 Old myocardial infarction; I25.5 Ischemic cardiomyopathy; Z98.890 Other specified postprocedural states; Z87.891 Personal history of nicotine dependence
CPT/HCPCS: 36415; 37225; 76937; 82565; 82947; 84520; 85025; 85347; 99152; 99153; C1714; C1760; C1769; C1887; C1894; C2623; J1644; J2250; J3010; Q9967

== ENCOUNTER → 2024-12-24 07:31 | Outpatient (BNV) | payer MEDICARE, SELFPAY | PROVIDERS: PCP Physician Assistant Medical; Visit Provider Surgery Vascular Surgery | DX: I70.211 Atherosclerosis of native arteries of extremities with intermittent claudication, right leg (principal) | CPT/HCPCS: 37225; 75625; 75710; 99152 ==

== ENCOUNTER 2025-01-08 13:16 | Outpatient (AMB) | payer MEDICARE, SELFPAY ==
--- OUTSIDE RECORDS SUMMARY | 2025-01-08 13:20 | XMS_ITS | Data Portability ---
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 [email or web address] Not available 08/23/2023 12:08:20 Plan of Treatment Reminders Order Date Submit Date Provider Last Modified By Organization Details Last Modified Time Details Appointments None recorded. Lab None recorded. Referral None recorded. Procedures None recorded. Surgeries None recorded. Imaging XR, ankle, 3 or more view 2023 024 [facility], [address], [place], [address], 4 12:43:18 XR, foot, 2 view 2023 024 [email or web address] [facility], [address], [place], [address], 4 12:43:18 US, duplex, venous, lower extremity - ro DVT RLE, 2+ pitting edema 2023 024 Not available 4 08:54:33 Medication Orders None recorded. Patient TargetsNo targets recorded. Patient Instructions Encounter Date Encounter Id Patient Instructions Last Modified By Organization Details Last Modified Time 08/23/2023 [id number] Weightbearing x-rays of the right foot and ankle were obtained in the [place] office on 08/13/2023 which demonstrates hallux valgus deformity with an angle of 33 degrees and an intermetatarsal angle of 20 degrees. Question of avulsion fracture of the distal fibula versus chronic osteophyte. Mortise is in anatomic alignment. [email or web address] Not available 08/23/2023 12:09:27 Reason for Referral None Reported. Problems Name Problem SNOMED Code Status Onset Date Resolution Date Notes Provider Name and Address Organization Details Recorded Time Swelling of lower leg 288656067 Active 2023 LUIS GARIBAY PA-C [address], [place], [address], [facility] 4 11:31:56 Sprain of right ankle 621410029421927 05 Active 2023 LUIS GARIBAY PA-C [address], [place], [address], [place] [facility] 4 12:08:34 Problem Notes None recorded. Procedures Surgical History Date Name Laterality Status Provider Name and Address Organization Details Recorded Time Stent completed Daniel Salguero [facility] 08/23/2023 10:58:30 Imaging Results None recorded. [...] Updated DateTime 08/23/2023 193.04 cm 26.8 kg/m2 86984.[address] [facility] 08/23/2023 10:57:48 Social History None recorded. Functional Status None recorded. Mental Status None recorded. Family History Nothing Reported. Medical History Condition Response Hypertension Y Past Encounters Encounter ID Performer Location Encounter Start Date Encounter Closed Date Diagnosis/Indication Diagnosis SNOMED-CT Code Diagnosis ICD10 Code Diagnosis Note [id number] LUIS GARIBAY PA-C [address] [address] 08/23/2023 10:35:28 08/23/2023 11:45:31 Pain of right ankle joint 8873036574 2558215 M25.571 Swelling of lower leg 44 2245320 R22.41 Sprain of right ankle 11 12720343 1399752 S93.401A Health Concerns Section Related Observation LastModified by Organization Detai ls LastModified Time None Recorded Concern Status LastModified by Organization Details LastModified Time None Recorded Advance Directives Directive None Recorded Payers Encounter Date Sequence Insurance Name Policy Number Policy Vincent Covered Member ID Vincent Member ID Guarantor Name 08/23/2023 1 [facility] (MEDICARE REPLACEMENT/A DVANTAGE - PPO) [id number] Eron Escudero [id number] Eron Escudero Notes Date Note Type Note [...] lateral ankle pain. He did go to [facility] urgent care on 02 July and was [...] Vera Cameron MD [address], [place], [address], [place] [facility] 08/28/2023 20:30:12
--- NOTE | 2025-01-08 13:34 | A.OFFVIS_ITS ---
Intake Visit Reasons: 2w follow up s/p R leg angio 12/24/24 Intake Note: Patient presents for follow up right angio performed on 12/24/24. States his gait and walking is much better. Accompanied by: Self / Same As Patient Allergies No Known Allergies Allergy (Verified 01/08/25 13:35) HPI HPI 2w follow up s/p R leg angio 12/24/24: Details: The patient is a 74-year-old male presenting with a follow-up for Peripheral Artery Disease (PAD) management. He is status post right leg endovascular intervention He reports a significant improvement in his walking ability and a reduction in pain, as noted by others, with no pain during regular activities. However, he experiences fatigue after extended periods of standing, such as when standing for five hours on the golf course. He has a history of a drug-coated balloon placement at the mid-thigh area, which has led to minor, sporadic pain, though it is not significant. The patient was prescribed Plavix, initially taken in the morning, which caused lightheadedness. After switching to nighttime dosing, the lightheadedness resolved, and he remains compliant with the once-daily regimen. He now presents for routine postprocedure follow-up [facility] Medical History CAD (coronary artery disease) Inferior myocardial infarction Ischemic cardiomyopathy PVD (peripheral vascular disease) Surgical History S/P angiogram of extremity (06/08/21) S/P cardiac catheterization Hx of cardiac cath Family History Father CVD (cardiovascular disease) Social History Alcohol intake: current Alcohol intake frequency: does not drink Patient Tobacco Use Status: Former Tobacco user Review of Systems Const All systems reviewed & are unremarkable except as noted in HPI and below Reports no additional complaints ENT Reports Normal hearing present Card Denies chest pain, Denies chest pain at rest, Denies chest pain with activity and Denies pedal edema Resp Denies cough GI Denies abdominal pain Musc Denies abnormal gait, Denies muscle cramps and Denies radiating pain into limb Skin/Breast Denies skin ulcer and Denies wounds Neuro Reports Normal hearing present and Denies abnormal gait Psych Reports no additional complaints Physical Exam Const General: cooperative, healthy appearing and comfortable Orientation/consciousness: oriented to person, oriented to place and oriented to time HEENT Head: Yes normal to inspection Neck Neck: Yes normal visual inspection Carotids: no bruits Chest Chest palpation & inspection: normal inspection of the chest Resp Effort & Inspection: normal respiratory effort and able to speak in complete sentences Auscultation: clear to auscultation bilaterally, no crackles, no rales, no rhonchi and no wheezes Cardio Other: Bilateral DP signals Rate: regular rate Rhythm: regular rhythm Heart sounds: S1 normal heart sound present and S2 normal heart sound present Bruits: no carotid bruits Peripheral pulses: Peripheral pulses 2+ throughout GI Inspection: Yes normal to inspection Skin Wounds: no wounds Hair: normal Neuro General: oriented to person, oriented to place and oriented to time Cranial nerves: Yes CN's II-XII intact bilaterally and Yes Normal hearing present Cognition (Neuro): normal cognition Motor exam (neuro): 5/5 motor strength present throughout Extrem Other: venous exam: No significant superficial varicosities or spider telangiectasias, minimal edema General: No clubbing, No cyanosis and No edema Psych Appearance: grossly normal Mental Status: mental status grossly normal Speech and movement: Normal speech and movement present Assessment & Plan Assessment & Plan (1) PVD (peripheral vascular disease): Comment: 05/15/2021 - atherectomy and stent of left SFA, plasty of left SFA with DCB 12/24/2024 right SFA atherectomy and plasty Code(s): I73.9 - Peripheral vascular disease, unspecified Category: Medical Plan: In short patient has stable claudication. I did review the pathophysiology of peripheral vascular disease with the patient. In addition we did discuss routine conservative measures including a healthy diet and the importance of exercise and ambulation. We did discuss risk factor modification. The patient will continue to to follow-up with surveillance follow-up in approximately 3 months. Thank you for allowing us to participate in this patient's care. If there are any questions or concerns please do not hesitate to contact us. Orders: Orders US arterial duplex LE BI 3 Months I73.9 - Peripheral vascular disease, unspecified Coding Level of Care Code Est Pt Level 4 (38815) Diagnoses PVD (peripheral vascular disease) I73.9
== END 2025-01-08 13:54 | disposition home or self-care (01) ==
LOC: HO.HVS 13:16
PROVIDERS: PCP Physician Assistant Medical; Visit Provider Surgery Vascular Surgery
DX: I73.9 Peripheral vascular disease, unspecified (principal)
CPT/HCPCS: 99214

== ENCOUNTER → 2025-01-08 13:16 | Outpatient (BNVA) | payer MEDICARE, SELFPAY | PROVIDERS: PCP Physician Assistant Medical; Visit Provider Surgery Vascular Surgery | DX: I73.9 Peripheral vascular disease, unspecified (principal) | CPT/HCPCS: 99212 ==

== ENCOUNTER 2025-01-09 10:16 | Outpatient (AMB) | payer MEDICARE, SELFPAY ==
--- NOTE | 2025-01-09 10:32 | A.OFFVIS_ITS ---
Intake Visit Reasons: BPH/ elevated PSA Intake Note: Patient is present for BPH/ELEVATED PSA Urology Medication:NONE Antibiotic Allergy:NONE Blood Thinner:ASPIRIN TODAY'S PVR:23ML[employer]S [employer] Principal Required: No Allergies No Known Allergies Allergy (Verified 01/09/25 10:33) HPI Comments Details: Eron is a pleasant male. He is a patient of Dr. Duran. He is here for the following urologic conditions - lower urinary tract symptoms Reduced Jardiance PFSH Medical History CAD (coronary artery disease) Inferior myocardial infarction Ischemic cardiomyopathy PVD (peripheral vascular disease) Surgical History S/P angiogram of extremity (06/08/21) S/P cardiac catheterization Hx of cardiac cath Family History Father CVD (cardiovascular disease) Social History Alcohol intake: current Alcohol intake frequency: does not drink Patient Tobacco Use Status: Former Tobacco user Office Procedures Post Void Residual Post Residual Void Post Void Residual (PVR): 23 [id number] Void Residual by ultrasound Assessment & Plan Assessment & Plan (1) BPH loc w urin obs/LUTS: Code(s): N40.1 - Benign prostatic hyperplasia with lower urinary tract symptoms Category: Medical (2) Elevated PSA: Code(s): R97.20 - Elevated prostate specific antigen [PSA] Category: Medical Orders: Orders AMB Urinalysis Automated Today Z13.9 - Encounter for screening, unspecified PSA,Total (Free>4and<10) 6 Months R97.20 - Elevated prostate specific antigen [PSA] US bladder 6 Months R39.12 - Poor urinary stream, R97.20 - Elevated prostate specific antigen [PSA] Coding Diagnoses BPH loc w urin obs/LUTS N40.1 Elevated PSA R97.20 CPT Codes Post Residual Void - PVR CPT Code: [id number]-[id number] Void Residual by ultrasound ([id number])
== END 2025-01-09 11:21 | disposition home or self-care (01) ==
LOC: HO.HUSH 10:16
PROVIDERS: PCP Physician Assistant Medical; Visit Provider Urology
DX: Z13.9 Encounter for screening, unspecified (principal)

== ENCOUNTER → 2025-01-09 10:16 | Outpatient (BNVA) | payer MEDICARE, SELFPAY | PROVIDERS: PCP Physician Assistant Medical; Visit Provider Urology | DX: N40.1 Benign prostatic hyperplasia with lower urinary tract symptoms (principal); R35.0 Frequency of micturition; R39.12 Poor urinary stream; R97.20 Elevated prostate specific antigen [PSA] | CPT/HCPCS: 51798; 81003; 99212 ==

== ENCOUNTER 2025-04-06 12:42 | Outpatient (REF) | payer MEDICARE, SELFPAY ==
--- NOTE | ~2025-04-06 | US_ITS ---
EXAMINATION: Noninvasive assessment of the bilateral lower extremities with ARTERIAL DUPLEX, ANKLE BRACHIAL INDICES (ABIs), and PULSE VOLUME RECORDINGS (PVRs). CLINICAL INFORMATION: Peripheral vascular disease. Status post endarterectomy and angioplasty, right superficial femoral artery. Status post stenting left superficial femoral artery. TECHNIQUE: Duplex Doppler techniques with waveform analysis and measurement of velocities in the bilateral common femoral, profunda femoris, superficial femoral, popliteal and tibial arteries were performed. Additionally, ankle pulse volume recordings, ankle pressure measurements and ankle brachial indices were obtained of the lower extremity arterial system bilaterally. The study was performed only at rest. COMPARISON: December 12, 2024. FINDINGS: Arrhythmia episodes. DIRECT DUPLEX DOPPLER FINDINGS: RIGHT LEG: Common femoral artery: 114 cm/s, phasicity: Biphasic. Profunda femoris artery: 276 cm/s, phasicity: Monophasic. Spectral broadening. Superficial femoral artery (proximal): 214 cm/s, phasicity: Monophasic. Spectral broadening. Superficial femoral artery (mid): 170 cm/s, phasicity: Monophasic. Spectral broadening. Superficial femoral artery (distal): 62 cm/s, phasicity: Monophasic. Popliteal artery: 93 cm/s, phasicity: Monophasic. Spectral broadening. Posterior tibial artery: 39 cm/s, phasicity: Monophasic. Spectral broadening. Peroneal artery: No color Doppler flow. Anterior tibial artery: 9 cm/s, phasicity: Monophasic. Dorsalis pedis artery: 7 cm/s, phasicity:Monophasic. LEFT LEG: Common femoral artery: 129 cm/s, phasicity: Monophasic. Spectral broadening. Profunda femoris artery: 49 cm/s, phasicity: Biphasic. Spectral broadening. Superficial femoral artery (proximal): 61 cm/s, phasicity: Monophasic. There is a stent. [place] artery, proximal segment: 43 cm/s and monophasic waveforms. Proximal stent: 44 cm/s and monophasic waveform. Midsegment stent: 50 cm/s and monophasic waveform. Distal segment, stent: 38 cm/s and monophasic waveform. [place] artery distal to the stent: 48 cm/s and monophasic waveform. Superficial femoral artery (distal): 368 cm/s, phasicity: Monophasic. Spectral broadening. Popliteal artery: 26 cm/s, phasicity: Monophasic. Spectral broadening. Posterior tibial artery: 28 cm/s, phasicity: Monophasic. Peroneal artery: 22 cm/s, phasicity: Monophasic. Anterior tibial artery: 15 cm/s, phasicity: Monophasic. Dorsalis pedis artery: 14 cm/s, phasicity: Monophasic. BRACHIAL PRESSURES: Right: 150 Left: 158 ANKLE PRESSURES: Right: PT 72, DP 80 Left: PT 64, DP not detected. ANKLE-BRACHIAL INDEX: Right: 0.51 Left: 0.41 ANKLE PVR WAVEFORMS: Right: Abnormal Left: Abnormal US/US arterial duplex BI w/ SVEN IMPRESSION: Right leg: Severe inflow disease throughout the interrogated arteries. Probable occluded right peroneal artery. Left leg: Concerning high degree stenosis at the distal left superficial femoral artery near the stent. Severe inflow disease throughout the interrogated arteries. SVEN Reference: - >1.4 = calcified vessels - 0.9 - 1.4 = normal - no significant arterial disease - 0.7 - 0.89 = mild peripheral arterial disease - 0.51 - 0.69 = moderate peripheral arterial disease - 0.50 = severe peripheral arterial disease - < .30 = critical arterial disease Electronically signed by: Edwin Basilio MD 04/07/2025 12:12 PM EDT
--- OUTSIDE RECORDS SUMMARY | 2025-04-06 13:50 | XMS_ITS ---
Author Name [facility] Organization Unknown History of Medication Use Medication Directions Dispensed Refills Start Date End Date Stat cilostazol 50 mg tablet TAKE 2 TABLET BY MOUTH TWICE DAILY FOR 90 DAYS active diclofenac 1 % topical gel APPLY 4 GRAMS TOPICALLY TO THE AFFECTED AREA FOUR TIMES DAILY NEEDED FOR ARTHRITIS PAIN active metoprolol succinate ER 25 mg tablet,extended release 24 hr TAKE 1 TABLET BY MOUTH DAILY active Problems Problem Status Onset Date Problem Type Date of Resoluti on Source Swelling of lower leg active 2023-08-23 ProblemAct [facility] Sprain of right ankle active 2023-08-23 ProblemAct [facility] Encounters Encounter Type Encounter Reason Primary Diagnosis Location Date Ambulatory [facility] 09/22/2023 Ambulatory [facility] 08/23/2023 Ambulatory [facility] 08[facility]23/2023 Ambulatory [facility] 08/23/2023 Ambulatory [facility] 08/23/2023 Ambulatory [facility] 08/22/2023
--- OUTSIDE RECORDS SUMMARY | 2025-04-06 13:50 | XMS_ITS | Clinical Summary ---
Author Organization [facility] [address] [facility] Address [address] [place] [address] Phone Care Team Providers Care Intern Name Role Phone Moses Duran Primary Care Provider [phone] Allergies No known active allergies Medications aspirin [...] by mouth 1 (one) time each day. 05/14/20 24 Active tadalafiL (CIALIS) 20 mg tablet Take 0.5 tablets (10 mg total) by mouth at bedtime as needed for erectile dysfunction. 05/31/20 22 Active valsartan (DIOVAN) 40 mg tablet Take 1 tablet (40 mg total) by mouth 1 (one) time each day. 06/26/20 24 Active empagliflozin (JARDIANCE) 10 mg tablet Take 1 tablet (10 mg total) by mouth 1 (one) time each day. 90 tablet 3 01/28/20 25 Active atorvastatin (LIPITOR) 80 mg tablet Take 1 tablet (80 mg total) by mouth 1 (one) time each day. 90 tablet 03/23/20 25 Active atorvastatin (LIPITOR) 80 mg tablet TAKE 1 TABLET BY MOUTH DAILY 90 tablet 12/25/19 25 025 Discontinued Active Problems Problem Noted Date Diagnosed Date Benign prostatic hyperplasia 06/01/2023 Herpes simplex 06/01/2023 History of 2019 novel coronavirus disease (COVID -19) 09/13/2021 Claudication ([facility] V24) 12/15/2020 Stage 3a chronic kidney disease ([facility] V24, CM S/[facility] V28) 12/15/2020 Varicose veins of left leg with edema 12/17/2018 Depression 08/05/2012 Type 2 diabetes, diet controlled ([facility] V24, C [place]/[facility] V28) 02/02/2012 Peripheral vascular disease ([facility] V24) 2008 Herniated lumbar intervertebral disc 01/15/2008 Coronary atherosclerosis of hoh coronary vess el 06/04/2007 Overview (07/03/2024): Followed by dr. chiquis Lopez Cath did need intervention Pure hypercholesterolemia 10/18/2006 Immunizations Name Administration Dates Next Due DTaP, [...] PROCEDURE: HISTORICAL COLONOSCOPY; COMMENT: Low risk adenomas 3. COLONOSCOPY 07/21/2019 PROCEDURE: HISTORICAL COLONOSCOPY; COMMENT: Sub-5 [...] of colon polyps; COMMENT: Low risk adenomas 3 at colonoscopy August,, next examination indicated 2018. Pure hypercholesterolemia 10/18/2006 DX:Pur e hypercholesterolemia Coronary atherosclerosis of hoh coronary artery 06/04/2007 DX:Coronary atherosclerosis of hoh coronary artery Herniated lumbar intervertebral disc 01/15/2008 DX:Herniated lumbar intervertebral disc Peripheral vascular disease ([facility] V24) 02/09/2009 DX:Peripheral vascular disea se ([facility]) Type 2 diabetes, diet contro lled (CMS/HCC V24, [facility]/HCC V28) 02/02/2012 DX:Type 2 diabetes, diet co ntrolled ([facility]) Depression 08/05/2012 DX:Depression Family History [...] care for your loved ones. For example, exceptional children teacher or elderly care for an older adult? [...] 64 11/04/2024 2:22 PM EDT Temperature 35.9 C (96.7 F) 11/04/2024 2:22 PM EDT Respiratory Rate 17 11/04/2024 2:22 PM EDT Oxygen Saturation - - Inhaled Oxygen Concentration - - Weight 97.9 kg (215 lb 12.8 oz) 11/04/2024 2:22 PM EDT Height 193 cm (6' 4 ) 11/04/2024 2:22 PM EDT Body Mass Index 26.27 11/04/2024 2:22 PM EDT Plan of Treatment Upcoming Encounters Date Type Department Care Team (Late st Contact Info) Description 04/07/2025 3:30 PM EDT Office Visit Adult Medicine [facility] [address] [place] [address] Mosse Duran PA [address] [place] [address] 05/01/2025 3:30 PM EDT Appointment [facility] CT Scan [address] [place] [address] Health Maintenance Due Date Last Done Comments COVID-19 Vaccine (3 - Pfizer risk series) 12/20/2020 11/22/2020, 11/01/2020 Colorectal Cancer Screening: Colonoscopy 07/22/2022 Falls Risk Assessment 12/09/2024 12/10/2023 Lung Cancer Screening (Low Dose CT) 05/01/2025 05/01/2024, 04/30/2024, 04/25/2023, Additional history exists Diabetes: Annual Retina Eye Exam 05/23/2025 05/23/2024 Diabetes: Annual Foot Exam 06/13/2025 06/13/2024 Medicare Annual Wellness Visit 06/13/2025 06/13/2024 Diabetes: Blood Sugar Control Test (HGBA1C) 10/03/2025 04/02/2025, 11/04/2024, 06/10/2024, Additional history exists Social Influencers of Health Screening 10/30/2025 10/30/2024 Diabetes: Annual Urine Albumin-Creatinine Ratio (uACR) 04/02/2026 04/02/2025, 11/04/2024, 06/10/2024 Diabetes: Annual GFR (Glomerular Filtration Rate) 04/02/2026 04/02/2025, 11/25/2024, 11/04/2024, Additional history exists Hypertension/CHF/CAD Annual BMP Blood Test 04/02/2026 04/02/2025, 11/25/2024, 11/04/2024, Additional history exists Cholesterol Screening (Lipid Panel) 04/02/2030 04/02/2025, 11/04/2024, 06/10/2024, Additional history exists DTaP,Tdap,and Td Vaccines Discontinued 2012, 09/25/2002, 09/25/2002 Hepatitis C Screening Completed 01/18/2013 Abdominal Aortic Aneurysm (AAA) Screen Completed 07/19/2016 Pneumococcal Vaccine: 50+ Years Completed 11/16/2017, 10/30/2016 Depression Screening Completed 10/30/2024, 06/13/20 24 HIB Vaccines Aged Out No longer eligi [...] Procedure Name Priority Date/Time Associated Diagnosis Comments LIPID PANEL WITH REFLEX TO DIRECT LDL Routine 04/02/2025 2:52 PM EDT Screening for malignant neoplasm of colon Type 2 diabetes, diet controlled (CMS/HCC V24, CMS/HCC V28) Stage 3a chronic kidney disease (CMS/HCC V24, CMS/HCC V28) Peripheral vascular disease (CMS/HCC V24) Pure hypercholesterolemia MICROALBUMIN CREATININE URINE RATIO Routine 04/02/2025 2:52 PM EDT Screening for malignant neoplasm of colon Type 2 diabetes, diet controlled (CMS/HCC V24, CMS/HCC V28) Stage 3a chronic kidney disease (CMS/HCC V24, CMS/HCC V28) Peripheral vascular disease (CMS/HCC V24) Pure hypercholesterolemia COMPREHENSIVE METABOLIC PANEL Routine 04/02/2025 2:52 PM EDT Screening for malignant neoplasm of colon Type 2 diabetes, diet controlled (CMS/HCC V24, CMS/HCC V28) Stage 3a chronic kidney disease (CMS/HCC V24, CMS/HCC V28) Peripheral vascular disease ([facility]/HCC V24) Pure hypercholesterolemia HEMOGLOBIN A1C Routine 04/02/2025 2:52 PM EDT Screening for malignant neoplasm of colon Type 2 diabetes, diet controlled ([facility]/HCC V24, CMS/HCC V28) Stage 3a chronic kidney disease (CMS/HCC V24, CMS/HCC V28) Peripheral vascular disease (CMS/HCC V24) Pure hypercholesterolemia PSA TOTAL, FREE AND COMPLEXED, DIAGNOSTIC Routine 04/02/2025 2:52 PM EDT Screening for malignant neoplasm of colon Type 2 diabetes, diet controlled (CMS/HCC V24, CMS/HCC V28) Stage 3a chronic kidney disease (CMS/HCC V24, CMS/HCC V28) Peripheral vascular disease ([facility]/HCC V24) Pure hypercholesterolemia Elevated prostate specific antigen (PSA) DEPRESSION SCREENING Routine 06/13/2024 DIABETES FOOT EXAM Routine 06/13/2024 DIABETES EYE EXAM Routine 05/23/2024 CT LUNG SCREENING LOW DOSE Routine 05/01/2024 2:34 PM EDT Encounter for screening for malignant neoplasm of respiratory organs FALLS RISK ASSESSMENT Routine 12/10/2023 ABDOMINAL AORTIC ANEURYSM SCRREN Routine 07/19/2016 HEPATITIS C SCREENING Routine 01/18/2013 from Last 3 Months or Most Recently Relevant to Health Maintenance Results * PSA total, free and complexed (04/02/2025 2:52 PM EDT) PSA 3.83 0.00 - 4.00 ng/mL LAB CHEMISTRY METHOD 04/02/2025 7:18 PM EDT [facility] PSA, Complexed 2.47 0.00 - 3.00 ng/mL LAB CHEMISTRY METHOD 04/02/2025 7:18 PM EDT [facility] PSA, Free 1.4 ng/mL LAB CHEMISTRY METHOD 04/02/2025 7:18 PM EDT [facility] PSA, Free Pct 36.6 >25.0 % LAB CHEMISTRY METHOD 04/02/2025 7:18 PM EDT [facility] Blood Venous blood specimen / Unknown Venipuncture / Unknown 04/02/2025 2:52 PM EDT 04/02/2025 2:56 PM EDT [facility] - 04/02/2025 7:18 PM EDT Free PSA is a calculated value. The diagnostic usefulness of % free PSA has not been established in patients with Total PSA below 2.6 or above 10 ng/mL. This test was performed using the Centaur Chemiluminescent method. PSA values obtained with other methods cannot be used interchangeably. Moses MIXON LAB BLOOD ORDERABLES Flor mccabe Result [facility] [address] [place] [address], * Lipid panel with reflex to direct LDL (04/02/2025 2:52 PM EDT) Cholesterol 145 0 - 200 mg/dL LAB CHEMISTRY METHOD 04/02/2025 5:19 PM EDT [facility] Triglycerides 127 0 - 150 mg/dL LAB CHEMISTRY METHOD 04/02/2025 5:19 PM EDT [facility] HDL 72 >=40 mg/dL LAB CHEMISTRY METHOD 04/02/2025 5:19 PM EDT [facility] LDL Calculated 48 0 - 100 mg/dL LAB CHEMISTRY METHOD 04/02/2025 5:19 PM EDT [facility] Comment:Estimated LDL Calcul ated using equation: Total cholesterol - HDL cholesterol - (Triglycerides/5) VLDL Cholesterol Anant 25.4 mg/dL LAB CHEMISTRY METHOD 04/02/2025 5:19 PM EDT [facility] Non HDL Chol. (LDL+VLDL) 73 <145 mg/dL LAB CHEMISTRY METHOD 04/02/2025 5:19 PM EDT [facility] Chol/HDL Ratio 2.0 0.0 - 4.4 LAB CHEMISTRY METHOD 04/02/2025 5:19 PM EDT [facility] Blood Venous blood specimen / Unknown Venipuncture / Unknown 04/02/2025 2:52 PM EDT 04/02/2025 2:56 PM EDT Moses MIXON LAB BLOOD ORDERABLES Flor l Result [facility] [address] [place] [address], [place] [phone] * (ABNORMAL) Microalbumin creatinine urine ratio (04/02/2025 2:52 PM EDT) Creatinine, Urine 130.0 mg/dL LAB CHEMISTRY METHOD 04/02/2025 5:30 PM EDT [facility] Microalb, Ur 137.0(H) 0.0 - 29.0 mg/L LAB CHEMISTRY METHOD 04/02/2025 5:30 PM EDT [facility] Microalb/Crea t Ratio 105(H) <30 mg/g creat LAB CHEMISTRY METHOD 04/02/2025 5:30 PM EDT [facility] Urine Urine specimen obtained by clean catch procedure / Unknown Non-blood Collection / Unknown 04/02/2025 2:52 PM EDT 04/02/2025 2:56 PM EDT Moses MIXON LAB URINE ORDERABLES Flor l Result Performing Organization Address City/[facility]/ZIP Co de Phone Number [facility] [address] [place] [address], [place] [phone] * (ABNORMAL) Hemoglobin A1c (04/02/2025 2:52 PM EDT) Pathologist [facility] Hemoglobin A1C 7.3(H) <6.5 % LAB CHEMISTRY METHOD 04/02/2025 11:11 PM EDT [facility] Mean Bld Glu Estim. 163 mg/dL LAB CHEMISTRY METHOD 04/02/2025 11:11 PM EDT [facility] Blood Venous blood specimen / Unknown Venipuncture / Unknown 04/02/2025 2:52 PM EDT 04/02/2025 2:56 PM EDT Moses MIXON LAB BLOOD ORDERABLES Flor mccabe Result [facility] [address] [place] [address], * (ABNORMAL) Comprehensive metabolic panel (04/02/2025 2:52 PM EDT) [facility] Sodium 139 133 - 145 mmol/L LAB CHEMISTRY METHOD 04/02/2025 5:25 PM EDT [facility] Potassium 4.5 3.5 - 5.5 mmol/L LAB CHEMISTRY METHOD 04/02/2025 5:25 PM [facility] Chloride 109 96 - 110 mmol/L LAB CHEMISTRY METHOD 04/02/2025 5:25 PM EDT [facility] CO2 28 21 - 32 mmol/L LAB CHEMISTRY METHOD 04/02/2025 5:25 PM T [facility] Anion Gap 2(L) 3 - 11 LAB CHEMISTRY METHOD 04/02/2025 5:25 PM EDT [facility] Glucose 171(H) 70 - 100 mg/dL LAB CHEMISTRY METHOD 04/02/2025 5:25 PM [facility] BUN 29(H) 5 - 25 mg/dL LAB CHEMISTRY METHOD 04/02/2025 5:25 PM EDT [facility] Creatinine 1.57(H) 0.70 - 1.30 mg/dL LAB CHEMISTRY METHOD 04/02/2025 5:25 PM [facility] eGFR 46(L) >=60 mL/min/1. 73m2 LAB CHEMISTRY METHOD 04/02/2025 5:25 PM [facility] Comment:Calculation based on the Chronic Kidney Disease Epidemiology Collaboration (CKD-EPI) equation refit without adjustment for race. BUN/Creatinine Ratio 18.5 LAB CHEMISTRY METHOD 04/02/2025 5:25 PM [facility] Calcium 9.0 8.5 - 10.5 mg/dL LAB CHEMISTRY METHOD 04/02/2025 5:25 PM [facility] AST (SGOT) 15 10 - 42 unit/L LAB CHEMISTRY METHOD 04/02/2025 5:25 PM [facility] ALT (SGPT) 23 10 - 60 unit/L LAB CHEMISTRY METHOD 04/02/2025 5:25 PM [facility] Alkaline Phosphatase 77 42 - 121 unit/L LAB CHEMISTRY METHOD 04/02/2025 5:25 PM [facility] Total Protein 6.6 6.0 - 8.0 g/dL LAB CHEMISTRY METHOD 04/02/2025 5:25 PM [facility] Albumin 3.8 3.2 - 5.0 g/dL LAB CHEMISTRY METHOD 04/02/2025 5:25 PM [facility] Total Bilirubin 0.5 0.0 - 1.4 mg/dL LAB CHEMISTRY METHOD 04/02/2025 5:25 PM [facility] Blood Venous blood specimen / Unknown Venipuncture / Unknown 04/02/2025 2:52 PM EDT 04/02/2025 2:56 PM EDT Moses MIXON LAB BLOOD ORDERABLES Flor mccabe Result [facility] [address] [place] [address], [place] [phone] * Depression Screening (06/13/2024) Pathologist Replaced by [facility] Depression Screening abstracted us Historical Provider HEALTH MAINTENANCE Final Result * Diabetes Foot Exam (06/13/2024) Pathologist Replaced by [facility] Diabetes: Annual Foot Exam abstracted Historical Provider HEALTH MAINTENANCE Final Result * Diabetes Eye Exam (05/23/2024) Pathologist [facility] Diabetes: Annual Retina Eye Exam abstracted Historical Provider HEALTH MAINTENANCE Final Result * CT LUNG SCREENING LOW DOSE (05/01/2024 2:34 PM EDT) Anatomical Region Laterality Modality Computed Tomogra phy 04/30/2024 3:41 PM EDT Narrative 05/01/2024 2:34 PM EDT [facility] Diagnostic Imaging Department [address] [place] [address] Patient: YOKASTA ROGER D.O.B./Age/Sex: 1950 - 73 - M Unit#: [id number] Location/Status: SPDICATLS/REG CLI Mnemonic/Ordering Site: [facility] Ordering Physician: TIMBO GALAN MD CT Lung Screening Low Dose - 04/30/24 - 1555 Report Status:Signed Chest CT, 05/01/2024 1:41 PM. TECHNIQUE: Low-dose CT of the chest without intravenous contrast administration. Coronal and sagittal reformats and MIP reconstructions were created. Dose length product: 201 mGy-cm. 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 FINDINGS: Lungs/pleura: Airways are clear and normal in caliber. Mild centrilobular emphysema. Thin linear band of scarring in the lingula. No suspicious nodule or mass. No pleural effusion or pneumothorax. Mediastinum/lizz: No mediastinal mass or lymphadenopathy. No appreciable hilar lymphadenopathy on limited noncontrast evaluation. [...] 1. No suspicious pulmonary nodule. Guidelines recommend repeat low- dose screening CT in 12 months. Dictating Physician: DEVIN RIVERA MD Electronically Signed by: DEVIN RIVERA MD Dic Date/Time: 05/01/24 1341 Sign date/Time: 05/01/24 1434 Procedure Note Devin Rivera MD - 05/28/2024 [facility] Diagnostic Imaging Department [address] [place] [id number] Patient: YOKASTA ROGER Zay Robles/Age/Sex: 1950 - 73 - M Unit#: [id number] Location/Status: SPDICATLS/REG CLI Mnemonic/Ordering Site: [facility] Ordering Physician: TIMBO GALAN MD CT Lung [...] Final Result * Falls Risk Assessment (12/10/2023) Falls Risk Assessment abstracted Historical Provider HEALTH MAINTENANCE Final Result * Abdominal Aortic Aneurysm Screen (07/19/2016) Pathologist Replaced by [facility] Abdominal Aortic Aneurysm (AAA) Screening abstracted Anatomical Region Laterality Modality Other Historical Provider HEALTH MAINTENANCE Final Result * Hepatitis C Screening (01/18/2013) Hepatitis C Screening abstracted Historical Provider HEALTH MAINTENANCE Final Result from Last 3 Months or Most Recently Relevant to Health Maintenance Insurance [employer] Care Teams Intern Relationship Specialty Start Date End Date Moses Duran PA [address] [place] [address] PCP - General Internal Medicine 10/19/20
== END 2025-04-06 12:43 | disposition home or self-care (01) ==
LOC: HO.US 12:42
PROVIDERS: PCP Physician Assistant Medical; Visit Provider Surgery Vascular Surgery
DX: Z13.89 Encounter for screening for other disorder (principal)

== ENCOUNTER → 2025-04-06 12:44 | Outpatient (BNV) | payer MEDICARE, SELFPAY | PROVIDERS: PCP Physician Assistant Medical; Visit Provider Radiology Diagnostic Radiology | DX: I73.9 Peripheral vascular disease, unspecified (principal); Z98.62 Peripheral vascular angioplasty status | CPT/HCPCS: 93922; 93925 ==

== ENCOUNTER 2025-05-14 14:45 | Outpatient (AMB) | payer MEDICARE, SELFPAY ==
--- NOTE | 2025-05-14 14:48 | A.OFFVIS_ITS ---
Intake Visit Reasons: follow up Arterial US 04/06/25 Intake Note: 3 mo follow up Arterial US 04/06/25 s/p Right Angio 12/24/24 & Left Angio 05/15/2021. Pt states his legs feel good and has been golfing. Log Handler Required: No Accompanied by: Self / Same As Patient Allergies No Known Allergies Allergy (Verified 05/14/25 14:53) HPI HPI follow up Arterial US 04/06/25: Details: The patient is a 74-year-old male presenting for arterial follow-up. The patient has a history of peripheral artery disease with claudication, as indicated by an ankle-brachial index (SVEN) of 0.51 on the right and 0.41 on the left, which are considered low. He reports that while the SVEN numbers are low, he does not experience significant discomfort that would necessitate immediate intervention. The patient engages in regular physical activity, including golfing, which he performs using a cart due to fatigue after prolonged activity. He reports that on some days he experiences no pain, but his legs feel tired after activities such as playing golf multiple times in a week. He now presents for routine follow-up with arterial testing FORMERLY [facility], [facility] Medical History CAD (coronary artery disease) Inferior myocardial infarction Ischemic cardiomyopathy PVD (peripheral vascular disease) Surgical History S/P angiogram of extremity (06/08/21) S/P cardiac catheterization Hx of cardiac cath Family History Father CVD (cardiovascular disease) Social History Alcohol intake: current Alcohol intake frequency: does not drink Patient Tobacco Use Status: Former Tobacco user Review of Systems Const All systems reviewed & are unremarkable except as noted in HPI and below Reports no additional complaints ENT Reports Normal hearing present Card Denies chest pain, Denies chest pain at rest, Denies chest pain with activity and Denies pedal edema Resp Denies cough GI Denies abdominal pain Musc Denies abnormal gait, Denies muscle cramps and Denies radiating pain into limb Skin/Breast Denies skin ulcer and Denies wounds Neuro Reports Normal hearing present and Denies abnormal gait Psych Reports no additional complaints Physical Exam Const General: cooperative, healthy appearing and comfortable Orientation/consciousness: oriented to person, oriented to place and oriented to time HEENT Head: Yes normal to inspection Neck Neck: Yes normal visual inspection Carotids: no bruits Chest Chest palpation & inspection: normal inspection of the chest Resp Effort & Inspection: normal respiratory effort and able to speak in complete sentences Auscultation: clear to auscultation bilaterally, no crackles, no rales, no rhonchi and no wheezes Cardio Other: Bilateral DP signals Rate: regular rate Rhythm: regular rhythm Heart sounds: S1 normal heart sound present and S2 normal heart sound present Bruits: no carotid bruits Peripheral pulses: Peripheral pulses 2+ throughout GI Inspection: Yes normal to inspection Skin Wounds: no wounds Hair: normal Neuro General: oriented to person, oriented to place and oriented to time Cranial nerves: Yes CN's II-XII intact bilaterally and Yes Normal hearing present Cognition (Neuro): normal cognition Motor exam (neuro): 5/5 motor strength present throughout Extrem Other: venous exam: No significant superficial varicosities or spider telangiectasias, minimal edema General: No clubbing, No cyanosis and No edema Psych Appearance: grossly normal Mental Status: mental status grossly normal Speech and movement: Normal speech and movement present Assessment & Plan Assessment & Plan (1) PVD (peripheral vascular disease): Comment: 05/15/2021 - atherectomy and stent of left SFA, plasty of left SFA with DCB 12/24/2024 right SFA atherectomy and plasty Code(s): I73.9 - Peripheral vascular disease, unspecified Category: Medical Plan: In short patient has stable claudication. I did review the pathophysiology of peripheral vascular disease with the patient. In addition we did discuss routine conservative measures including a healthy diet and the importance of exercise and ambulation. We did discuss risk factor modification. The patient will continue to to follow-up with surveillance follow-up in approximately 1 year. Thank you for allowing us to participate in this patient's care. If there are any questions or concerns please do not hesitate to contact us. Orders: Orders US arterial duplex LE BI 1 Year I73.9 - Peripheral vascular disease, unspecified Coding Level of Care Code Est Pt Level 4 (01296) Complex EM visit Add On G2211 Diagnoses PVD (peripheral vascular disease) I73.9
--- OUTSIDE RECORDS SUMMARY | 2025-05-14 16:16 | XMS_ITS | Clinical Summary ---
Author Organization [facility] [address] [facility] Address [address] [place] [address] Phone Care Team Providers Care Galley Hand Name Role Phone Moses Duran Primary Care Provider [phone] Allergies No known active allergies Medications aspirin [...] 1 (one) time each day. 4 Active empagliflozin (JARDIANCE) 10 mg tablet Take 1 tablet (10 mg total) by mouth 1 (one) time each day. 90 tablet 3 5 Active clopidogreL (PLAVIX) 75 mg tablet Take 1 tablet (75 mg total) by mouth 1 (one) time each day. 5 Active atorvastatin (LIPITOR) 80 mg tablet Take 1 tablet (80 mg total) by mouth 1 (one) time each day. 90 tablet 3 5 Active Active Problems Problem Noted Date Diagnosed Date Benign prostatic hyperplasia 06/01/2023 Herpes simplex 06/01/2023 History of 2019 novel coronavirus disease (COVID -19) 09/13/2021 Claudication ([facility] V24) 12/15/2020 Stage 3a chronic kidney disease ([facility] V24, CM S/[facility] V28) 12/15/2020 Varicose veins of left leg with edema 12/17/2018 Depression 08/05/2012 Type 2 diabetes, diet controlled ([facility] V24, C AL/[facility] V28) 02/02/2012 Peripheral vascular disease ([facility] V24) 2008 Herniated lumbar intervertebral disc 01/15/2008 Coronary atherosclerosis of [place] coronary vess el 06/04/2007 Overview (07/03/2024): Followed by dr. sim Prev Cath did need intervention Pure hypercholesterolemia 10/18/2006 Encounters Date Type Department Care Team Description 05/01/2025 3:08 PM EDT - 05/01/2025 11:59 PM EDT Hospital Encounter [facility] CT Scan [address] [place] [id number] Encounter for screening for lung cancer; Former smoker Discharge Disposition: Home or Self Care 04/17/2025 Telephone Lung Screening Program - [place] [address] [phone] Marina Lora [place] 04/17/2025 Telephone Lung Screening Program - [place] [address] [phone] Marina Lora [place] 04/07/2025 3:30 PM EDT Office Visit [address] [place] [address] Moses Duran PA Type 2 diabetes, diet controlled ([facility] V24, [facility] V28) (Primary Dx); Stage 3a chronic kidney disease ([facility] V24, [facility] V28); Pure hypercholesterolemi a; Peripheral vascular disease ([facility] V24); Benign prostatic hyperplasia, unspecified whether lower urinary tract symptoms present from Last 3 Months Immunizations Immunization Administration Dates Next Due DTaP, Unspecified 09/25/2002 [...] 10/18/2006 DX:Pur e hypercholesterolemia Coronary atherosclerosis of [place] coronary artery 06/04/2007 DX:Coronary atherosclerosis of [place] coronary artery Herniated lumbar intervertebral disc 01/15/2008 DX:Herniated lumbar intervertebral disc Peripheral vascular disease ([facility] V24) 02/09/2009 DX:Peripheral vascular disea se (HCC) Type 2 diabetes, diet contro lled ([facility] V24, [facility] V28) 02/02/2012 DX:Type 2 diabetes, diet [...] for your loved ones. For example, child development assistant or elderly care for an older adult? [...] Date Recorded What is your living situation? Unrecognized valu e 10/30/2024 Sex and Gender Information Value Date Recorded Sex Assigned at Not on file Legal Sex Male 10:50 AM EST Gender Identity Not on file Sexual Orientation Not on file Obstetrics History Last Filed Vital Signs Vital Sign Reading Time Taken Comments Blood Pressure 101/63 04/07/2025 3:20 PM EDT Pulse 64 11/04/2024 2:22 PM EDT Temperature 36.8 C (98.3 F) 04/07/2025 3:20 PM EDT Respiratory Rate 14 04/07/2025 3:20 PM EDT Oxygen Saturation - - Inhaled Oxygen Concentration - - Weight 95.7 kg (211 lb) 04/07/2025 3:20 PM EDT Height 193 cm (6' 4 ) 04/07/2025 3:20 PM EDT Body Mass Index 25.68 04/07/2025 3:20 PM EDT Plan of Treatment Upcoming Encounters Date Type Department Care Team (Late st Contact Info) Description 10/14/2025 2:30 PM EST Office Visit Adult Medicine [address] [phone] Moses Duran [address] [phone] Health Maintenance Due Date Last Done Comments Colorectal Cancer Screening: Colonoscopy 1950 COVID-19 Vaccine (3 - Pfizer risk series) 12/20/2020 11/22/2020, 11/01/2020 Falls Risk Assessment 12/09/2024 12/10/2023 Diabetes: Annual Retina Eye Exam 05/23/2025 05/23/2024 [...] 04/02/2026 04/02/2025, 11/25/2024, 11/04/2024, Additional history exists Lung Cancer Screening (Low Dose CT) 05/01/2026 05/01/2025, 05/01/2024, 04/30/2024, Additional history exists Cholesterol Screening (Lipid Panel) [...] Procedure Name Priority Date/Time Associated Diagnosis Comments CT LUNG SCREENING Routine 05/01/2025 3:1 4 PM EDT Encounter for screening for lung cancer Former smoker EXTERNAL VASCULAR ULTRASOUND 04/06/2025 EXTERNAL VASCULAR ULTRASOUND 04/06/2025 LIPID PANEL WITH REFLEX TO DIRECT LDL [...] (CMS/HCC V24) Pure hypercholesterolemia HEMOGLOBIN A1C Routine 04/02/2025 [...] Routine 06/13/2024 DIABETES EYE EXAM Routine 05/23/2024 FALLS RISK ASSESSMENT Routine 12/10/2023 ABDOMINAL AORTIC ANEURYSM SCRREN Routine 07/19/2016 HEPATITIS C SCREENING Routine 01/18/2013 from Last 3 Months or Most Recently Relevant to Health Maintenance Results * CT Lung Screening (05/01/2025 3:14 PM EDT) Anatomical Region Laterality Modality Chest Computed Tomogra phy 05/06/2025 2:39 PM EDT Impressions 05/06/2025 2:50 PM EDT Impression: New 4 mm right upper lobe nodule, for which a follow-up low-dose CT is recommended in 6 months. Lung-RADS Category: Lung-RADS 3: Probably benign nodule(s). Recommend follow up with Low Dose Chest CT in 6 months. [employer] [place] ([id number]) -------- FINAL REPORT -------- Dictated By: Victorina Devries Dictated Date: 05/06/2025 14:39 ET Assigned Physician: Victorina Devries Reviewed and Electronically Signed By: Victorina Devries Signed Date: 05/06/2025 14:50 ET Workstation ID: [id number] Transcribed By: Self Edit Transcribed Date: 05/06/2025 14:39 ET Narrative 05/06/2025 2:50 PM EDT History: 74 year-old 60 pack-year former smoker, asymptomatic, for lung cancer screening. Quit smoking 13 years ago. Comparison: 04/30/24 Technique: Helical volumetric imaging of the thorax was performed, using low- dose technique, without IV contrast. DLP: 193.41 mGy/cm CTDIvol: 4.89 mGy [employer] Iterative reconstruction technique Findings: Lungs and Airways: The trachea and central bronchial tree remain patent. There is patchy centrilobular emphysema. A new 4 mm solid, noncalcified nodule is seen in the right lung apex (image 26 series 3). Pleura: No pleural or pericardial effusions are seen. Base of neck, mediastinum and heart: The heart remains normal in size. Severe, three-vessel coronary artery calcification is again noted. No developing lymphadenopathy is seen. Soft tissues: The overlying soft tissues are unremarkable. Abdomen: This study was performed without contrast and with lower than standard dose. These factors reduce the sensitivity for detection of small lesions in the upper abdomen. No significant abnormality is seen. Procedure Note Victorina Devries MD - 05/06/2025 History: 74 year-old 60 pack-year former smoker, asymptomatic, for lungcancer screening. Quit smoking 13 years ago. Comparison: 04/30/24 Technique: Helical volumetric imaging of the thorax was performed, usinglow-dose technique, without IV contrast. DLP: 193.41 mGy/cm CTDIvol: 4.89 mGy [employer] Iterative reconstruction technique Findings: Lungs and Airways: The trachea and central bronchial tree remain patent.There is patchy centrilobular emphysema. A new 4 mm solid, noncalcified nodule is seen in the right lung apex(image 26 series 3). Pleura: No pleural or pericardial effusions are seen. Base of neck, mediastinum and heart: The heart remains normal in size.Severe, three-vessel coronary artery calcification is again noted. Nodeveloping lymphadenopathy is seen. Soft tissues: The overlying soft tissues are unremarkable. Abdomen: This study was performed without contrast and with lower thanstandard dose. These factors reduce the sensitivity for detection of smalllesions in the upper abdomen. No significant abnormality is seen. IMPRESSION: Impression: New 4 mm right upper lobe nodule, for which a follow-up low-dose CT isrecommended in 6 months. Lung-RADS Category: Lung-RADS 3: Probably benign nodule(s). Recommendfollow up with Low Dose Chest CT in 6 months. [place] ([id number]) -------- FINAL REPORT -------- Dictated By: Victorina Devries Dictated Date: 05/06/2025 14:39 ET Assigned Physician: Victorina Devries Reviewed and Electronically Signed By: Victorina Devries Signed Date: 05/06/2025 14:50 ET Workstation ID: [id number] Transcribed By: Self Edit Transcribed Date: 05/06/2025 14:39 ET us Bernadette Bond MD IMG CT PROCEDURES Final Result * External Vascular Ultrasound (04/06/2025) Only the most recent of2 resultswithin the time period is included. Anatomical Region Laterality Modality Ultrasound us Provider [facility] CV VASCULAR PROCEDURES F inal Result * PSA total, free and complexed (04/02/2025 2:52 PM EDT) PSA 3.83 0.00 - 4.00 ng/mL LAB CHEMISTRY METHOD 04/02/2025 7:18 PM EDT [facility] PSA, Complexed 2.47 0.00 - 3.00 ng/mL LAB CHEMISTRY METHOD 04/02/2025 7:18 PM EDT [facility] PSA, Free 1.4 ng/mL LAB CHEMISTRY METHOD 04/02/2025 7:18 PM EDT [facility] PSA, Free Pct 36.6 >25.0 % LAB CHEMISTRY METHOD 04/02/2025 7:18 PM EDT [facility] Blood Venous blood specimen / Unknown Venipuncture / Unknown 04/02/2025 2:52 PM EDT 04/02/2025 2:56 PM EDT Narrative [facility] - 04/02/2025 7:18 PM EDT Free PSA is a calculated value. The diagnostic usefulness of % free PSA has not been established in patients with Total PSA below 2.6 or above 10 ng/mL. This test was performed using the Centaur Chemiluminescent method. PSA values obtained with other methods cannot be used interchangeably. us Moses MIXON LAB BLOOD ORDERABLES Flor mccabe Result [facility] [address] [place] [address], [place] [phone] * Lipid panel with reflex to direct LDL (04/02/2025 2:52 PM EDT) Cholesterol 145 0 - 200 mg/dL LAB CHEMISTRY METHOD 04/02/2025 5:19 PM EDT [facility] Triglycerides 127 0 - 150 mg/dL LAB CHEMISTRY METHOD 04/02/2025 5:19 PM EDT [facility] HDL 72 >=40 mg/dL LAB CHEMISTRY METHOD 04/02/2025 5:19 PM EDT [facility] LDL Calculated 48 0 - 100 mg/dL LAB CHEMISTRY METHOD 04/02/2025 5:19 PM EDT [facility] Comment:Estimated LDL Calcul ated using equation: Total cholesterol - HDL cholesterol - (Triglycerides/5) VLDL Cholesterol Anant 25.4 mg/dL LAB CHEMISTRY METHOD 04/02/2025 5:19 PM EDT [facility] Non HDL Chol. (LDL+VLDL) 73 <145 mg/dL LAB CHEMISTRY METHOD 04/02/2025 5:19 PM EDT [facility] Chol/HDL Ratio 2.0 0.0 - 4.4 LAB CHEMISTRY METHOD 04/02/2025 5:19 PM EDT [facility] Blood Venous blood specimen / Unknown Venipuncture / Unknown 04/02/2025 2:52 PM EDT 04/02/2025 2:56 PM EDT us Moses MIXON LAB BLOOD ORDERABLES Flor l Result [facility] [address] [place] [address], [place] [phone] * (ABNORMAL) Microalbumin creatinine urine ratio (04/02/2025 2:52 PM EDT) Creatinine, Urine 130.0 mg/dL LAB CHEMISTRY METHOD 04/02/2025 5:30 PM EDT [facility] Microalb, Ur 137.0(H) 0.0 - 29.0 mg/L LAB CHEMISTRY METHOD 04/02/2025 5:30 PM EDT [facility] Microalb/Crea t Ratio 105(H) <30 mg/g creat LAB CHEMISTRY METHOD 04/02/2025 5:30 PM EDT [facility] Urine Urine specimen obtained by clean catch procedure / Unknown Non-blood Collection / Unknown 04/02/2025 2:52 PM EDT 04/02/2025 2:56 PM EDT Moses MIXON LAB URINE ORDERABLES Flor l Result Performing Organization Address [facility]/ZIP Co de Phone Number [facility] [address] [place] [address], [place] [phone] * (ABNORMAL) Hemoglobin A1c (04/02/2025 2:52 PM EDT) [facility] Hemoglobin A1C 7.3(H) <6.5 % LAB CHEMISTRY METHOD 04/02/2025 11:11 PM EDT [facility] Mean Bld Glu Estim. 163 mg/dL LAB CHEMISTRY METHOD 04/02/2025 11:11 PM EDT [facility] Blood Venous blood specimen / Unknown Venipuncture / Unknown 04/02/2025 2:52 PM EDT 04/02/2025 2:56 PM EDT Moses MIXON LAB BLOOD ORDERABLES Flor l Result [facility] [address] [place] [address], [place] [phone] * (ABNORMAL) Comprehensive metabolic panel (04/02/2025 2:52 PM EDT) Sodium 139 133 - 145 mmol/L LAB CHEMISTRY METHOD 04/02/2025 5:25 PM [facility] Potassium 4.5 3.5 - 5.5 mmol/L LAB CHEMISTRY METHOD 04/02/2025 5:25 PM [facility] Chloride 109 96 - 110 mmol/L LAB CHEMISTRY METHOD 04/02/2025 5:25 PM [facility] CO2 28 21 - 32 mmol/L LAB CHEMISTRY METHOD 04/02/2025 5:25 PM [facility] Anion Gap 2(L) 3 - 11 LAB CHEMISTRY METHOD 04/02/2025 5:25 PM [facility] Glucose 171(H) 70 - 100 mg/dL LAB CHEMISTRY METHOD 04/02/2025 5:25 PM [facility] BUN 29(H) 5 - 25 mg/dL LAB CHEMISTRY METHOD 04/02/2025 5:25 PM [facility] Creatinine 1.57(H) 0.70 - 1.30 mg/dL LAB CHEMISTRY METHOD 04/02/2025 5:25 PM [facility] eGFR 46(L) >=60 mL/min/1. 73m2 LAB CHEMISTRY METHOD 04/02/2025 5:25 PM [facility] Comment:Calculation based on the Chronic Kidney Disease Epidemiology Collaboration (CKD-EPI) equation refit without adjustment for race. BUN/Creatinine Ratio 18.5 LAB CHEMISTRY METHOD 04/02/2025 5:25 PM [facility] Calcium 9.0 8.5 - 10.5 mg/dL LAB CHEMISTRY METHOD 04/02/2025 5:25 PM [facility] AST (SGOT) 15 10 - 42 unit/L LAB CHEMISTRY METHOD 04/02/2025 5:25 PM [facility] ALT (SGPT) 23 10 - 60 unit/L LAB CHEMISTRY METHOD 04/02/2025 5:25 PM EDT [facility] Alkaline Phosphatase 77 42 - 121 unit/L LAB CHEMISTRY METHOD 04/02/2025 5:25 PM EDT [facility] Total Protein 6.6 6.0 - 8.0 g/dL LAB CHEMISTRY METHOD 04/02/2025 5:25 PM EDT [facility] Albumin 3.8 3.2 - 5.0 g/dL LAB CHEMISTRY METHOD 04/02/2025 5:25 PM EDT [facility] Total Bilirubin 0.5 0.0 - 1.4 mg/dL LAB CHEMISTRY METHOD 04/02/2025 5:25 PM EDT [facility] Blood Venous blood specimen / Unknown Venipuncture / Unknown 04/02/2025 2:52 PM EDT 04/02/2025 2:56 PM EDT Moses MIXON LAB BLOOD ORDERABLES Flor l Result [facility] [address] [place] [address], * Depression Screening (06/13/2024) [facility] Depression Screening abstracted [facility] Provider HEALTH MAINTENANCE Final Result * Diabetes Foot Exam (06/13/2024) [facility] Diabetes: Annual Foot Exam abstracted [facility] Provider HEALTH MAINTENANCE Final Result * Diabetes Eye Exam (05/23/2024) [facility] Diabetes: Annual Retina Eye Exam abstracted [facility] Provider HEALTH MAINTENANCE Final Result * Falls Risk Assessment (12/10/2023) [facility] Falls Risk Assessment abstracted [facility] Provider HEALTH MAINTENANCE Final Result * Abdominal Aortic Aneurysm Screen (07/19/2016) [facility] Abdominal Aortic Aneurysm (AAA) Screening abstracted Anatomical Region Laterality Modality Other Historical Provider HEALTH MAINTENANCE Final Result * Hepatitis C Screening (01/18/2013) Hepatitis C Screening abstracted us Historical Provider HEALTH MAINTENANCE Final Result from Last 3 Months or Most Recently Relevant to Health Maintenance Insurance [employer]ARE [employer] MED[employer]ARE Care Teams Galley Hand Relationship Specialty Start Date End Date Moses Duran PA [address] [place] [address] PCP - General Internal Medicine 10/19/20
== END 2025-05-14 15:07 | disposition home or self-care (01) ==
LOC: HO.HVS 14:46
PROVIDERS: PCP Physician Assistant Medical; Visit Provider Surgery Vascular Surgery
DX: I73.9 Peripheral vascular disease, unspecified (principal)
CPT/HCPCS: 99214; G2211

== ENCOUNTER → 2025-05-14 14:45 | Outpatient (BNVA) | payer MEDICARE, SELFPAY | PROVIDERS: PCP Physician Assistant Medical; Visit Provider Surgery Vascular Surgery | DX: I73.9 Peripheral vascular disease, unspecified (principal); Z95.820 Peripheral vascular angioplasty status with implants and grafts | CPT/HCPCS: 99212 ==

== ENCOUNTER 2025-06-23 12:29 | Outpatient (AMB) | payer MEDICARE, SELFPAY ==
[2025-06-23 12:55] VITALS: BP 134/72; PULSE 71; BMI 26.3
--- NOTE | 2025-06-23 12:55 | MHC.OFFVIS ---
Vital Signs 06/23/25 12:55 Height 6 ft 4 in Weight 216 lb 0.848 oz BMI 26.3 BP 134/72 Blood Pressure Location Lt brachial Position Sitting Pulse 71 Intake Visit Reasons: 1 yr f/up Intake Note: 1 year follow-up with ekg feeling good Plasma Processing Technician Required: No Allergies No Known Allergies Allergy (Verified 05/14/25 14:53) Medication List - Last Reconciled 06/23/25 by Marlo Dover MD aspirin (Adult Low Dose Aspirin) 81 mg PO DAILY atorvastatin 80 mg PO DAILY cilostazol 100 mg (2 x 50 mg) PO BID empagliflozin (Jardiance) 25 mg PO QAM metoprolol succinate ER 25 mg PO DAILY valsartan 40 mg PO DAILY HPI Comments Details: Trent comes for follow-up. He has been doing well. He underwent interventions on in his right SFA last year with much improvement symptoms in his claudication. He has been walking and playing a lot more golf. He denies any exertional chest pain. He denies any symptoms of heart failure. No orthopnea, PND, leg edema. Takes all his medications. Denies any prolonged palpitation. Under lightheadedness, syncope. [facility] Medical History CAD (coronary artery disease) Inferior myocardial infarction Ischemic cardiomyopathy PVD (peripheral vascular disease) Surgical History S/P angiogram of extremity (06/08/21) S/P cardiac catheterization Hx of cardiac cath Family History Father CVD (cardiovascular disease) Social History Alcohol intake: current Alcohol intake frequency: does not drink Patient Tobacco Use Status: Former Tobacco user Review of Systems Const Denies chills, Denies fatigue, Denies fever(s), Denies frequent falls, Denies weakness, Denies weight gain and Denies weight loss ENT Denies dizziness Card Denies chest pain, Denies leg edema, Denies lightheadedness, Denies palpitations, Denies dyspnea, Denies dyspnea on exertion, Denies orthopnea and Denies other (loss of consciousness) Resp Denies cough, Denies dyspnea and Denies dyspnea on exertion GI Denies hematochezia and Denies change in stool character Musc Denies abnormal gait, Denies muscle weakness, Denies numbness, Denies radiating pain into limb and Denies tingling Neuro Denies abnormal gait, Denies dizziness, Denies frequent falls, Denies numbness, Denies tingling and Denies weakness Endo Denies fatigue and Denies palpitations Physical Exam Vital Signs: Last Vital Signs Pulse 71 06/23/25 12:55 BP 134/72 06/23/25 12:55 BMI result Body Mass Index 26.3 Const General: cooperative, comfortable and no acute distress Orientation/consciousness: patient oriented x3 Neck Neck: Yes normal visual inspection and Yes no JVD Carotids: normal carotid upstroke Resp Effort & Inspection: normal respiratory effort Auscultation: clear to auscultation bilaterally, no crackles, no rales, no rhonchi and no wheezes Cardio Jugular venous distension: no JVD Rate: regular rate Rhythm: abnormal rhythm with ectopic beats Heart sounds: S1 normal heart sound present, S2 normal heart sound present, no gallops, no murmurs and no rubs GI Inspection: Yes normal to inspection Neuro General: patient oriented x3 Extrem General: Yes normal to inspection, No no pedal edema and No calf tenderness Office Procedures EKG Details: EKGs shows normal sinus rhythm with nonspecific intraventricular block with possible inferior infarct with diffuse T-wave changes suggestive of repolarization abnormality [id number], Complete Assessment & Plan Assessment & Plan (1) CAD (coronary artery disease): Code(s): I25.10 - Atherosclerotic heart disease of [place] coronary artery without angina pectoris Category: Medical Plan: Diffuse and significant coronary artery disease as well as diffuse vascular disease in this elderly gentleman doing well with symptoms and functionality. No current symptoms suggestive of angina. Continue aggressive medical therapy. Currently on aspirin which she should continue for life. Also on Plavix after intervention and being followed by vascular surgery. Continue high-intensity statin therapy. Target goal LDL less than 60 mg/dL. Advised lipid panel in near future. Continue aggressive blood pressure control which is currently well optimized. Diabetes management through your office. Goal hemoglobin A1c less than 7%. (2) Ischemic cardiomyopathy: Code(s): I25.5 - Ischemic cardiomyopathy Category: Medical Plan: Mild ischemic cardiomyopathy related to inferior infarct. No signs or symptoms of heart failure. Multiple vascular risk factor modification as well as comorbidities including diabetes as well as chronic kidney disease. Advise renal profile in near future. Currently on low-dose valsartan as well as metoprolol with well optimized blood pressure tolerating well. No signs or symptoms of heart failure. Also on Jardiance which would be a good neurohormonal modulators for him. Will follow up in the clinic in 1 year's time, sooner PRN. Thank you for allowing me to partake in his care Orders: Orders Complete Blood Count no Diff Today I25.10 - Atherosclerotic heart disease of [place] coronary artery without angina pectoris Basic Metabolic Panel Today I25.10 - Atherosclerotic heart disease of [place] coronary artery without angina pectoris Lipid Panel Today I25.10 - Atherosclerotic heart disease of [place] coronary artery without angina pectoris CA echo transthoracic complete 1 Year I25.5 - Ischemic cardiomyopathy Coding Level of Care Code Est Pt Level 4 (79047) Complex EM visit Add On G2211 Diagnoses CAD (coronary artery disease) I25.10 Ischemic cardiomyopathy I25.5 CPT Codes EKG - CPT: 19956-Jxmzfhwcqasjysjor, Complete ([id number])
--- OUTSIDE RECORDS SUMMARY | 2025-06-23 14:20 | XMS_ITS | Data Portability ---
Author Organization [place] [facility] Leila [facility] [place] Address [address] [place] [address] Care Team Providers Care It Lead Name Role Phone JENNIFERYARAAnnalise MARICRUZ Primary Care Provider Unavail able Assessment Encounter [...] his vascular doctor for a follow up. [email or web address] Not available 08/23/2023 12:08:20 Plan of Treatment Reminders Order Date Submit Date Provider Last Modified By Organization Details Last Modified Time Details Appointments None recorded. Lab None recorded. Referral None recorded. Procedures None recorded. Surgeries None recorded. Imaging XR, ankle, 3 or more view 2023 024 [email or web address] [facility], [address], [place], [address], 4 12:43:18 XR, foot, 2 view 2023 024 [email or web address] [facility], [address], [place], [address], 4 12:43:18 US, duplex, venous, lower extremity - ro DVT RLE, 2+ pitting edema 2023 024 [email or web address] Not available 4 08:54:33 Medication Orders None recorded. Patient TargetsNo targets recorded. Patient Instructions Encounter Date Encounter Id Patient Instructions Last Modified By Organization Details Last Modified Time 08/23/2023 [id number] Weightbearing x-rays of the right foot and ankle were obtained in the [place] office on 08/13/2023 which demonstrates hallux valgus deformity with an angle of 33 degrees and an intermetatarsal angle of 20 degrees. Question of avulsion fracture of the distal fibula versus chronic osteophyte. Mortise is in anatomic alignment. [email or web address] Not available 08/23/2023 12:09:27 Reason for Referral None Reported. Problems Name Problem SNOMED Code Status Onset Date Resolution Date Notes Provider Name and Address Organization Details Recorded Time Swelling of lower leg 921814278 Active 2023 LUIS GARIBAY PA-C [address], [place], [address], [place] [facility], [facility] 4 11:31:56 Sprain of right ankle 902274753315032 05 Active 2023 LUIS GARIBAY PA-C [address], [place], [address], [place] [facility], [facility] 4 12:08:34 Problem Notes None recorded. Procedures Surgical History Date Name Laterality Status Provider Name and Address Organization Details Recorded Time Stent completed Daniel Salguero [facility] 08/23/2023 10:58:30 Imaging Results None recorded. [...] Updated DateTime 08/23/2023 193.04 cm 26.8 kg/m2 54880.[address] [facility], 08/23/2023 10:57:48 Social History None recorded. Functional Status None recorded. Mental Status None recorded. Family History Nothing Reported. Medical History Condition Response Hypertension Y Past Encounters Encounter ID Performer Location Encounter Start Date Encounter Closed Date Diagnosis/Indication Diagnosis SNOMED-CT Code Diagnosis ICD10 Code Diagnosis IMO Codes Diagnosis Note [id number] LUIS GARIBAY PA-C [address] [address] 08/23/2023 10:35:28 08/23/2023 11:45:31 Pain of right ankle joint 9798772751 [id number] M25.571 Swelling of lower leg 44 7997858 R22.41 Sprain of right ankle 11 49275986 9692062 S93.401A Health Concerns Section Related Observation LastModified by Organization Detai ls LastModified Time None Recorded Concern Status LastModified by Organization Details LastModified Time None Recorded Advance Directives Directive None Recorded Payers Insurance Date Sequence Insurance Name Policy Number Policy Vincent Covered Member ID Vincent Member ID Guarantor Name 12/20/2023 1 [facility] (MEDICARE REPLACEMENT/A DVANTAGE - PPO) [id number] Eron Escudero [id number] Eron Escudero Notes Date Note Type Note [...] lateral ankle pain. He did go to [facility] on 02 July and was [...] Vera Cameron MD [address], [place], [address], [place] [facility] 08/28/2023 20:30:12
--- OUTSIDE RECORDS SUMMARY | 2025-06-23 14:20 | XMS_ITS | Clinical Summary ---
Author Organization [facility] [address] [facility] Address [address] [place] [address] Phone Care Team Providers Care Community Music Therapist Name Role Phone Moses Duran Primary Care Provider [phone] Allergies No known active allergies Medications aspirin [...] novel coronavirus disease (COVID -19) 09/13/2021 Claudication ([facility] V24) 12/15/2020 Stage 3a chronic kidney disease ([facility] V24, CM S/[facility] V28) 12/15/2020 Varicose veins of left leg with edema 12/17/2018 Depression 08/05/2012 Type 2 diabetes, diet controlled ([facility] V24, C NE/[facility] V28) 02/02/2012 Peripheral vascular disease ([facility] V24) 2008 Herniated lumbar intervertebral disc 01/15/2008 Coronary atherosclerosis of [place] coronary vess el 06/04/2007 Overview (07/03/2024): Followed by dr. sim Prev Cath did need intervention Pure hypercholesterolemia 10/18/2006 Encounters Date Type Department Care Team Description 05/01/2025 3:08 PM EDT - 05/01/2025 11:59 PM EDT Hospital Encounter [facility] Scan [address] [place] [id number] Encounter for screening for lung cancer; Former smoker Discharge Disposition: Home or Self Care 04/17/2025 Telephone Lung Screening Program - [place] [address] [id number] Marina Lora [place] 04/17/2025 Telephone Lung Screening Program - [place] [address] [phone] Marina Lora [place] 04/07/2025 3:30 PM EDT Office Visit [address] [place] [address] Moses Duran PA Type 2 diabetes, diet controlled ([facility] V24, [facility] V28) (Primary Dx); Stage 3a chronic kidney disease ([facility] V24, [facility] V28); Pure hypercholesterolemi a; Peripheral vascular disease ([facility] V24); Benign prostatic hyperplasia, unspecified whether [...] 10/18/2006 DX:Pur e hypercholesterolemia Coronary atherosclerosis of [place] coronary artery 06/04/2007 DX:Coronary atherosclerosis of [place] coronary artery Herniated lumbar intervertebral disc 01/15/2008 DX:Herniated lumbar intervertebral disc Peripheral vascular disease ([facility] V24) 02/09/2009 DX:Peripheral vascular disea se (HCC) Type 2 diabetes, diet contro lled ([facility] V24, [facility] V28) 02/02/2012 DX:Type 2 diabetes, diet co ntrolled ([facility]) Depression 08/05/2012 DX:Depression Family History Medical [...] Years Used Date Smoking Tobacco: Former Cigarettes 1.5 Q uit: 08/13/2012 Smokeless Tobacco: Former Quit: [...] loved ones. For example, exceptional children teacher assistant or elderly care for an older [...] 2:30 PM EST Office Visit Adult Medicine [address] [phone] Moses Duran PA [address] [place] [phone] Health Maintenance Due Date Last Done [...] 11/16/2017, 10/30/2016 Depression Screening Completed 10/30/2024, 06/13/20 Lung Cancer Screening (Low Dose CT) Discontinued 05/01/2025, 05/01/2024, 04/30/2024, Additional history exists HIB Vaccines Aged Out No longer eligi [...] Chest CT in 6 months. [facility]AL ([id number]) -------- FINAL REPORT -------- Dictated By: Victorina Devries Dictated Date: 05/06/2025 14:39 ET Assigned Physician: Victorina Devries Reviewed and Electronically Signed By: Victorina Devries Signed Date: 05/06/2025 14:50 ET Workstation ID: [id number] Transcribed By: Self Edit Transcribed Date: 05/06/2025 14:39 ET Narrative 05/06/2025 2:50 PM EDT History: 74 year-old 60 pack-year former smoker, asymptomatic, for lung cancer screening. Quit smoking 13 years ago. Comparison: 04/30/24 Technique: Helical volumetric imaging of the thorax was performed, using low- dose technique, without IV contrast. DLP: 193.41 mGy/cm CTDIvol: 4.89 mGy for; to (do)er Iterative reconstruction technique Findings: Lungs and Airways: [...] contrast. DLP: 193.41 mGy/cm CTDIvol: 4.89 mGy for; to (do)er Iterative reconstruction technique Findings: Lungs and Airways: [...] Low Dose Chest CT [place] 6 months. [place] ([id number]) -------- FINAL REPORT -------- Dictated By: Victorina Devries Dictated Date: 05/06/2025 14:39 ET Assigned Physician: Victorina Devries Reviewed and Electronically Signed By: Victorina Devries Signed Date: 05/06/2025 14:50 ET Workstation ID: [id number] Transcribed By: Self Edit Transcribed Date: 05/06/2025 [...] LAB CHEMISTRY METHOD 04/02/2025 7:18 PM EDT [facility] PSA, Complexed 2.47 0.00 - 3.00 ng/mL LAB CHEMISTRY METHOD 04/02/2025 7:18 PM EDT [facility] PSA, Free 1.4 ng/mL LAB CHEMISTRY METHOD 04/02/2025 7:18 PM EDT [facility] PSA, Free Pct 36.6 >25.0 % LAB CHEMISTRY METHOD 04/02/2025 7:18 PM EDT [facility] Blood Venous blood specimen / Unknown Venipuncture / Unknown 04/02/2025 2:52 PM EDT 04/02/2025 2:56 PM EDT Narrative [facility] - 04/02/2025 7:18 [...] [facility] LAB BLOOD ORDERABLES Flor mccabe Result [facility] [address] [place] [address], [place] [phone] * Lipid panel with reflex to direct LDL (04/02/2025 2:52 PM EDT) Cholesterol 145 0 - 200 mg/dL LAB CHEMISTRY METHOD 04/02/2025 5:19 PM EDT [facility] Triglycerides 127 0 - 150 mg/dL LAB CHEMISTRY METHOD 04/02/2025 5:19 PM EDT [facility] HDL 72 >=40 mg/dL LAB CHEMISTRY METHOD 04/02/2025 5:19 PM EDT [facility] LDL Calculated 48 0 - 100 mg/dL LAB CHEMISTRY METHOD 04/02/2025 5:19 PM EDT [facility] Comment:Estimated LDL Calcul ated using equation: Total cholesterol - HDL cholesterol - (Triglycerides/5) VLDL Cholesterol Anant 25.4 mg/dL LAB CHEMISTRY METHOD 04/02/2025 5:19 PM EDT [facility] Non HDL Chol. (LDL+VLDL) 73 <145 mg/dL LAB CHEMISTRY METHOD 04/02/2025 5:19 PM EDT [facility] Chol/HDL Ratio 2.0 0.0 - 4.4 LAB CHEMISTRY METHOD 04/02/2025 5:19 PM EDT [facility] Blood Venous blood specimen / Unknown Venipuncture / Unknown 04/02/2025 2:52 PM EDT 04/02/2025 2:56 PM EDT us Moses M[facility]ON LAB BLOOD ORDERABLES Flor l Result [facility] [address] [place] [address], [place] [phone] * (ABNORMAL) Microalbumin creatinine urine ratio (04/02/2025 2:52 PM EDT) Creatinine, Urine 130.0 mg/dL LAB CHEMISTRY METHOD 04/02/2025 5:30 PM EDT [facility] Microalb, Ur 137.0(H) 0.0 - 29.0 mg/L LAB CHEMISTRY METHOD 04/02/2025 5:30 PM EDT [facility] Microalb/Crea t Ratio 105(H) <30 mg/g creat LAB CHEMISTRY METHOD 04/02/2025 5:30 PM EDT [facility] Urine Urine specimen obtained by clean catch procedure / Unknown Non-blood Collection / Unknown 04/02/2025 2:52 PM EDT 04/02/2025 2:56 PM EDT Moses MIXON LAB URINE ORDERABLES Flor l Result Performing Organization Address [facility]/ZIP Co de Phone Number [facility] [address] [place] [address], [place] [phone] * (ABNORMAL) Hemoglobin A1c (04/02/2025 2:52 PM EDT) Pathologist [facility] Hemoglobin A1C 7.3(H) <6.5 % LAB CHEMISTRY METHOD 04/02/2025 11:11 PM EDT [facility] Mean Bld Glu Estim. 163 mg/dL LAB CHEMISTRY METHOD 04/02/2025 11:11 PM EDT [facility] Blood Venous blood specimen / Unknown Venipuncture / Unknown 04/02/2025 2:52 PM EDT 04/02/2025 2:56 PM EDT Moses MIXON LAB BLOOD ORDERABLES Flor l Result [facility] [address] [place] [address], [place] [phone] * (ABNORMAL) Comprehensive metabolic panel (04/02/2025 2:52 PM EDT) Sodium 139 133 - 145 mmol/L LAB CHEMISTRY METHOD 04/02/2025 5:25 PM [facility] Potassium 4.5 3.5 - 5.5 mmol/L LAB CHEMISTRY METHOD 04/02/2025 5:25 PM [facility] Chloride 109 96 - 110 mmol/L LAB CHEMISTRY METHOD 04/02/2025 5:25 PM [facility] CO2 28 21 - 32 mmol/L LAB CHEMISTRY METHOD 04/02/2025 5:25 PM [facility] Anion Gap 2(L) 3 - 11 LAB CHEMISTRY METHOD 04/02/2025 5:25 PM [facility] Glucose 171(H) 70 - 100 mg/dL LAB CHEMISTRY METHOD 04/02/2025 5:25 PM [facility] BUN 29(H) 5 - 25 mg/dL LAB CHEMISTRY METHOD 04/02/2025 5:25 PM [facility] Creatinine 1.57(H) 0.70 - 1.30 mg/dL LAB CHEMISTRY METHOD 04/02/2025 5:25 PM [facility] eGFR 46(L) >=60 mL/min/1. 73m2 LAB CHEMISTRY METHOD 04/02/2025 5:25 PM [facility] Comment:Calculation based on the Chronic Kidney Disease Epidemiology Collaboration (CKD-EPI) equation refit without adjustment for race. BUN/Creatinine Ratio 18.5 LAB CHEMISTRY METHOD 04/02/2025 5:25 PM [facility] Calcium 9.0 8.5 - 10.5 mg/dL LAB CHEMISTRY METHOD 04/02/2025 5:25 PM [facility] AST (SGOT) 15 10 - 42 unit/L LAB CHEMISTRY METHOD 04/02/2025 5:25 PM [facility] ALT (SGPT) 23 10 - 60 unit/L LAB CHEMISTRY METHOD 04/02/2025 5:25 PM EDT [facility] Alkaline Phosphatase 77 42 - 121 unit/L LAB CHEMISTRY METHOD 04/02/2025 5:25 PM EDT [facility] Total Protein 6.6 6.0 - 8.0 g/dL LAB CHEMISTRY METHOD 04/02/2025 5:25 PM EDT [facility] Albumin 3.8 3.2 - 5.0 g/dL LAB CHEMISTRY METHOD 04/02/2025 5:25 PM EDT [facility] Total Bilirubin 0.5 0.0 - 1.4 mg/dL LAB CHEMISTRY METHOD 04/02/2025 5:25 PM EDT [facility] Blood Venous blood specimen / Unknown Venipuncture / Unknown 04/02/2025 2:52 PM EDT 04/02/2025 2:56 PM EDT Moses MIXON LAB BLOOD ORDERABLES Flor l Result [facility] [address] [place] [address], * Depression Screening (06/13/2024) [facility] Depression Screening abstracted [facility] Provider HEALTH MAINTENANCE Final Result * Diabetes Foot Exam (06/13/2024) [facility] Diabetes: Annual Foot Exam abstracted [facility] Provider HEALTH MAINTENANCE Final Result * Diabetes Eye Exam (05/23/2024) [facility] Diabetes: Annual Retina Eye Exam abstracted [facility] Provider HEALTH MAINTENANCE Final Result * Falls Risk Assessment (12/10/2023) [facility] Falls Risk Assessment abstracted [facility] Provider HEALTH MAINTENANCE Final Result * Abdominal Aortic Aneurysm Screen (07/19/2016) [facility] Abdominal Aortic Aneurysm (AAA) Screening abstracted Anatomical Region Laterality Modality Other Historical Provider HEALTH MAINTENANCE Final Result * Hepatitis C Screening (01/18/2013) Hepatitis C Screening abstracted us Historical Provider HEALTH MAINTENANCE Final Result from Last 3 Months or Most Recently Relevant to Health Maintenance Insurance [employer]ARE Care Teams Community Music Therapist Relationship Specialty Start Date End Date Moses Duran PA [address] [place] [address] PCP - General Internal Medicine 10/19/20
== END 2025-06-23 13:16 | disposition home or self-care (01) ==
LOC: HO.HCS 12:30
PROVIDERS: PCP Physician Assistant Medical; Visit Provider Internal Medicine Cardiovascular Disease
DX: I25.10 Atherosclerotic heart disease of native coronary artery without angina pectoris (principal); I25.5 Ischemic cardiomyopathy
CPT/HCPCS: 93010; 99214; G2211

== ENCOUNTER → 2025-06-23 12:29 | Outpatient (BNVA) | payer MEDICARE, SELFPAY | PROVIDERS: PCP Physician Assistant Medical; Visit Provider Internal Medicine Cardiovascular Disease | DX: I10 Essential (primary) hypertension (principal); I25.10 Atherosclerotic heart disease of native coronary artery without angina pectoris; I25.5 Ischemic cardiomyopathy; Z87.891 Personal history of nicotine dependence; Z79.01 Long term (current) use of anticoagulants; Z79.82 Long term (current) use of aspirin; E11.9 Type 2 diabetes mellitus without complications; Z79.84 Long term (current) use of oral hypoglycemic drugs | CPT/HCPCS: 93005; 99212 ==

== ENCOUNTER 2025-06-29 12:36 | Outpatient (REF) | payer MEDICARE, SELFPAY ==
--- NOTE | ~2025-06-29 | US_ITS ---
CLINICAL HISTORY: R39.12 - Poor urinary stream US bladder Comparison: None provided Findings: The urinary bladder is unremarkable. Prevoid volume 168 mL. Post void volume 28 mL. Bilateral ureteral jets visualized. Impression: No bladder abnormality Ultrasound prostate gland Comparison: None provided Findings: Heterogeneous enlarged prostate without focal lesion. Prostate 5.8 x 6.3 x 6.2 cm. Prostate volume 120 mL. Impression: Considerable prostate enlargement without focal abnormality This document has been electronically signed by: Jose Rasmussen MD on 06/29/2025 20:03:49
--- OUTSIDE RECORDS SUMMARY | 2025-06-30 01:07 | XMS_ITS | Data Portability ---
Author Organization [place] [facility] [place] Address [address] [place] [address] Care Team Providers Care Aqua Ammonia Operator Name Role Phone JENNIFERYARAAnnalise MARICRUZ Primary Care [...] his vascular doctor for a follow up. [email or web address] Not available 08/23/2023 12:08:20 Plan of Treatment Reminders Order Date Submit Date Provider Last Modified By Organization Details Last Modified Time Details Appointments None recorded. Lab None recorded. Referral None recorded. Procedures None recorded. Surgeries None recorded. Imaging XR, ankle, 3 or more view 2023 024 [email or web address] [facility], [address], [place], [address], 4 12:43:18 XR, foot, 2 view 2023 024 [email or web address] [facility], [address], [place], [address], 4 12:43:18 US, duplex, venous, lower extremity - ro DVT RLE, 2+ pitting edema 2023 024 [email or web address] Not available 4 08:54:33 Medication Orders None recorded. Patient TargetsNo targets recorded. Patient Instructions Encounter Date Encounter Id Patient Instructions Last Modified By Organization Details Last Modified Time 08/23/2023 [id number] Weightbearing x-rays of the right foot and ankle were obtained in the [place] office on 08/13/2023 which demonstrates hallux valgus deformity with an angle of 33 degrees and an intermetatarsal angle of 20 degrees. Question of avulsion fracture of the distal fibula versus chronic osteophyte. Mortise is in anatomic alignment. [email or web address] Not available 08/23/2023 12:09:27 Reason for Referral None Reported. Problems Name Problem SNOMED Code Status Onset Date Resolution Date Notes Provider Name and Address Organization Details Recorded Time Swelling of lower leg 246551208 Active 2023 LUIS GARIBAY PA-C [address], [place], [address], [place] [facility] 4 11:31:56 Sprain of right ankle 348556500095545 05 Active 2023 LUIS GARIBAY PA-C [address], [place], [address], [place] [facility] 4 12:08:34 Problem Notes None recorded. Procedures Surgical History Date Name Laterality Status Provider Name and Address Organization Details Recorded Time Stent completed Daniel Salguero [facility] 08/23/2023 10:58:30 Imaging Results None recorded. [...] Updated DateTime 08/23/2023 193.04 cm 26.8 kg/m2 25317.[address] [place] [facility], 08/23/2023 10:57:48 Social History None recorded. Functional Status None recorded. Mental Status None recorded. Family History Nothing Reported. Medical History Condition Response Hypertension Y Past Encounters Encounter ID Performer Location Encounter Start Date Encounter Closed Date Diagnosis/Indication Diagnosis SNOMED-CT Code Diagnosis ICD10 Code Diagnosis IMO Codes Diagnosis Note [id number] LUIS GARIBAY PA-C [address] [address] 08/23/2023 10:35:28 08/23/2023 11:45:31 Pain of right ankle joint 1402062598 2345541 M25.571 Swelling of lower leg 44 1287137 R22.41 Sprain of right ankle 11 96947232 8862351 S93.401A Health Concerns Section Related Observation LastModified by Organization Detai ls LastModified Time None Recorded Concern Status LastModified by Organization Details LastModified Time None Recorded Advance Directives Directive None Recorded Payers Insurance Date Sequence Insurance Name Policy Number Policy Vincent Covered Member ID Vincent Member ID Guarantor Name 12/20/2023 1 [facility] (MEDICARE REPLACEMENT/A DVANTAGE - PPO) [id number] Eron Escudero [id number] Eron Escudero Notes Date Note Type Note [...] lateral ankle pain. He did go to [facility] urgent care on 02 July and was [...] Vera Cameron MD [address], [place], [address], [place] [facility] 08/28/2023 20:30:12
== END 2025-06-29 12:37 | disposition home or self-care (01) ==
LOC: HO.US 12:36
PROVIDERS: PCP Physician Assistant Medical; Visit Provider Urology
DX: R97.20 Elevated prostate specific antigen [PSA] (principal); R39.12 Poor urinary stream
CPT/HCPCS: 76857

== ENCOUNTER → 2025-06-29 12:38 | Outpatient (BNV) | payer MEDICARE, SELFPAY | PROVIDERS: PCP Physician Assistant Medical; Visit Provider Radiology Diagnostic Radiology | DX: R39.12 Poor urinary stream (principal) | CPT/HCPCS: 76857 ==

== ENCOUNTER 2025-06-30 08:19 | Outpatient (REF) | payer MEDICARE, SELFPAY ==
[2025-06-30 08:57] LABS: Hematocrit 46.2 % (42.0-52.0); Hemoglobin 15.0 g/dl (14.0-18.0); Mean Corpuscular HGB Conc 32.5 g/dl (31.0-36.0); Mean Corpuscular Hemoglobin 31.5 pg (27.0-33.0); Mean Corpuscular Volume 97.1 fL (80.0-98.0); NRBC Abs Auto 0.000 X10*3/uL (0.0-0.012); NRBC Pct Auto 0.0 /100WBC (0.0-0.2); Platelet Count 206 X10*3/uL (160-400); Red Blood Count 4.76 X10*6/uL (4.60-5.80); White Blood Count 7.5 X10*3/uL (4.8-10.8)
[2025-06-30 09:27] LABS: Anion Gap 12 (12-20); Blood Urea Nitrogen 25 mg/dL (9-16); Calcium 9.5 mg/dL (8.4-10.2); Carbon Dioxide 25 mmol/L (22-29); Chloride 109 mmol/L (96-108); Cholesterol 170 mg/dL (<200); Estimated Glomerular Filt Rate 43; HDL Cholesterol 64 mg/dL (>40); Potassium 5.9 mmol/L (3.3-5.1); Sodium 140 mmol/L (135-145); Triglycerides 99 mg/dL (<150)
[2025-06-30 09:52] LABS: PSA,Total (Free>4and<10) 4.60 ng/mL (0.00-4.00)
[2025-07-01 13:23] LABS: Free Prostate Spec Ag 0.7 ng/mL; Percent Free Prostate Spec Ag 15 % (calc) (>25)
== END 2025-06-30 08:20 | disposition home or self-care (01) ==
LOC: HO.LAB 08:19
PROVIDERS: Absent Provider Internal Medicine Cardiovascular Disease; PCP Physician Assistant Medical; Referring Provider Physician Assistant Medical; Visit Provider Urology
DX: R97.20 Elevated prostate specific antigen [PSA] (principal); I25.10 Atherosclerotic heart disease of native coronary artery without angina pectoris; Z12.5 Encounter for screening for malignant neoplasm of prostate
CPT/HCPCS: 36415; 80048; 80061; 84153; 84154; 85027

== ENCOUNTER 2025-07-14 10:30 | Outpatient (AMB) | payer MEDICARE, SELFPAY ==
--- NOTE | 2025-07-14 10:32 | A.OFFVIS_ITS ---
Intake Visit Reasons: 6m/US/PSA/ UA SET Intake Note: Patient is present for 6 mo follow up Urology Medication:NONE Antibiotic Allergy:NONE Blood Thinner:ASPIRIN, CLOPIDOGREL Imaging: Bladder Ultrasound 06/29/25 Labs done 06/30/25 Total PSA 4.60 TODAY'S PVR:82ML'S Insurance Business Analyst Required: No Accompanied by: Self / Same As Patient Allergies No Known Allergies Allergy (Verified 07/14/25 10:43) HPI Comments Details: Eron is a pleasant male. He is a patient of Dr. Duran. He is here for the following urologic conditions - lower urinary tract symptoms Six-month follow-up for BPH symptomatology PVR 80 cc Has been doing better since Jardiance was reduced to 10 mg Start finasteride Lower urinary tract symptoms Reduced Jardiance PSA 07/07 4.6 15% Bladder ultrasound 120 cc PFSH Medical History CAD (coronary artery disease) Inferior myocardial infarction Ischemic cardiomyopathy PVD (peripheral vascular disease) Surgical History S/P angiogram of extremity (06/08/21) S/P cardiac catheterization Hx of cardiac cath Family History Father CVD (cardiovascular disease) Social History Alcohol intake: current Alcohol intake frequency: does not drink Patient Tobacco Use Status: Former Tobacco user Review of Systems Const Denies chills and Denies fever(s) Card Reports no additional complaints and Denies syncope Resp Denies cough GI Denies abdominal pain and Denies heartburn Reports as per HPI and Denies change in libido Neuro Denies syncope Psych Denies change in libido Endo Denies change in libido Physical Exam Const General: cooperative, healthy appearing, comfortable and no acute distress Orientation/consciousness: patient oriented x3 HEENT Face and sinus: Yes normal facial exam Mouth: moist mucous membranes Neck Neck: Yes normal visual inspection, Yes full ROM and Yes trachea midline Chest Chest palpation & inspection: normal inspection of the chest Resp Effort & Inspection: normal respiratory effort, able to speak in complete sentences and no respiratory distress GI Inspection: Yes normal to inspection Back/Spine/Pelvis Cervical Spine: normal cervical lordosis Thoracic/Lumbar Spine: thoracic and lumbar spine normal to inspection Skin General skin exam: no rashes or lesions noted Neuro General: patient oriented x3, gait normal, tone normal and moves all extremities Extrem General: Yes normal to inspection and Yes capillary refill normal Office Procedures Post Void Residual Post Residual Void Post Void Residual (PVR): 82 [id number]-Cvzc Void Residual by ultrasound Results AMB Urinalysis, Automated UA Leukoctes 0 Radha/uL Last Edit by Jeannine Jaquez [facility] on 07/14/25 10:44 UA Nitrite Negative Last Edit by Jeannine Jaquez [facility] on 07/14/25 10:44 UA Urobilinogen 0.2 mg/dL Last Edit by Jeannine Jaquez [facility] on 07/14/25 10:44 UA Protein 30 mg/dL Last Edit by Jeannine Jaquez [facility] on 07/14/25 10:44 UA pH 6.0 Last Edit by Jeannine Jaquez [facility] on 07/14/25 10:44 UA Blood 10 Jonathan/uL Last Edit by Jeannine Jaquez [facility] on 07/14/25 10:44 UA Specific [place] 1.015 Last Edit by Jeannine Jaquez [facility] on 07/14/25 10:4 4 UA Ketone Negative Last Edit by Jeannine Jaquez [facility] on 07/14/25 10:44 UA Bilirubin 0 mg/dL Last Edit by Jeannine Jaquez [facility] on 07/14/25 10:44 UA Glucose 1000 mg/dL Last Edit by Jeannine Jaquez [facility] on 07/14/25 10:44 Results Reviewed Results Reviewed: Laboratory Last Values Urine pH (Auto) 6.0 07/14/25 10:44 Specific [place] (Auto) 1.015 07/14/25 10:44 Urine Protein (Auto) 30 mg/dL 07/14/25 10:44 Glucose (UA)(Auto) 1000 mg/dL 07/14/25 10:44 Urine Ketones (Auto) Negative 07/14/25 10:44 Urine Blood (Auto) 10 Jonathan/uL 07/14/25 10:44 Urine Nitrite (Auto) Negative 07/14/25 10:44 Urine Bilirubin (Auto) 0 mg/dL 07/14/25 10:44 Urine Urobilinogen (Auto) 0.2 mg/dL 07/14/25 10:44 Leukocyte Esterase (Auto) 0 Radha/uL 07/14/25 10:44 Assessment & Plan Assessment & Plan (1) Elevated PSA: Code(s): R97.20 - Elevated prostate specific antigen [PSA] Category: Medical (2) BPH loc w urin obs/LUTS: Code(s): N40.1 - Benign prostatic hyperplasia with lower urinary tract symptoms Category: Medical Plan Continue finasteride Repeat PSA in six-month Orders: Orders PSA,Total (Free>4and<10) 6 Months R97.20 - Elevated prostate specific antigen [PSA] Medications: New finasteride 5 mg PO DAILY 90 tabs 1RF 90 days R97.20 - Elevated prostate specific antigen [PSA] Patient Instructions: This note is constructed using voice recognition software. While every effort has been made to ensure accuracy eligibility analyst errors may have been included. Imaging studies, laboratory and physical exam results were discussed and reviewed in detail. No major barriers to patient understanding were identified. An opportunity to ask questions regarding the treatment plan was provided. All questions were answered. The patient expressed understanding and agreement with the above treatment plan. The patient is aware they should contact our office by phone for worsening of their current condition or the appearance of new urologic symptoms. Compliance is encouraged with any medications and followup testing that is ordered. It is a privilege to participate in the urologic care of your patient. If you have any questions or concerns regarding treatment for the above conditions, or other urologic issues, please do not hesitate to contact me. The office telephone contact is [phone]. Sincerely, Dr Ferdinand Giron MD, [facility] - Urology Compassionate Specialist Care for the Genitourinary System Coding Level of Care Code Est Pt Level 4 (15052) Complex visit Add On G2211 Diagnoses Elevated PSA R97.20 BPH loc w urin obs/LUTS N40.1 CPT Codes Post Residual Void - PVR CPT Code: 65042-Qeet Void Residual by ultrasound ([id number])
--- OUTSIDE RECORDS SUMMARY | 2025-07-14 12:05 | XMS_ITS | Data Portability ---
Author Organization [place] [facility] [place] Address [address] [place] [address] Care Team Providers Care Tableau Developer Name Role Phone JENNIFERYARAAnnalise MARICRUZ Primary Care [...] his vascular doctor for a follow up. [email or web address] Not available 08/23/2023 12:08:20 Plan of Treatment Reminders Order Date Submit Date Provider Last Modified By Organization Details Last Modified Time Details Appointments None recorded. Lab None recorded. Referral None recorded. Procedures None recorded. Surgeries None recorded. Imaging XR, ankle, 3 or more view 2023 024 [email or web address] [facility], [address], [place], [address], 4 12:43:18 XR, foot, 2 view 2023 024 [email or web address] [facility], [address], [place], [address], 4 12:43:18 US, duplex, venous, lower extremity - ro DVT RLE, 2+ pitting edema 2023 024 [email or web address] Not available 4 08:54:33 Medication Orders None recorded. Patient TargetsNo targets recorded. Patient Instructions Encounter Date Encounter Id Patient Instructions Last Modified By Organization Details Last Modified Time 08/23/2023 [id number] Weightbearing x-rays of the right foot and ankle were obtained in the [place] office on 08/13/2023 which demonstrates hallux valgus deformity with an angle of 33 degrees and an intermetatarsal angle of 20 degrees. Question of avulsion fracture of the distal fibula versus chronic osteophyte. Mortise is in anatomic alignment. Not available 08/23/2023 12:09:27 Reason for Referral None Reported. Problems Name Problem SNOMED Code Status Onset Date Resolution Date Notes Provider Name and Address Organization Details Recorded Time Swelling of lower leg 645331655 Active 2023 LUIS GARIBAY PA-C [address], [place], [address], [place] [facility] 4 11:31:56 Sprain of right ankle 735421246780393 05 Active 2023 LUIS GARIBAY PA-C [address], [place], [address], [place] [facility], [facility] 4 12:08:34 Problem Notes None recorded. Procedures Surgical History Date Name Laterality Status Provider Name and Address Organization Details Recorded Time Stent completed Daniel Salguero [facility] 08/23/2023 10:58:30 Imaging Results None recorded. [...] Updated DateTime 08/23/2023 193.04 cm 26.8 kg/m2 89690.[address] [facility], 08/23/2023 10:57:48 Social History None recorded. Functional Status None recorded. Mental Status None recorded. Family History Nothing Reported. Medical History Condition Response Hypertension Y Past Encounters Encounter ID Performer Location Encounter Start Date Encounter Closed Date Diagnosis/Indication Diagnosis SNOMED-CT Code Diagnosis ICD10 Code Diagnosis IMO Codes Diagnosis Note [id number] LUIS GARIBAY PA-C [address] [address] 08/23/2023 10:35:28 08/23/2023 11:45:31 Pain of right ankle joint 0452836978 6474575 M25.571 Swelling of lower leg 44 0918025 R22.41 Sprain of right ankle 11 79383083 6552209 S93.401A Health Concerns Section Related Observation LastModified by Organization Detai ls LastModified Time None Recorded Concern Status LastModified by Organization Details LastModified Time None Recorded Advance Directives Directive None Recorded Payers Insurance Date Sequence Insurance Name Policy Number Policy Vincent Covered Member ID Vincent Member ID Guarantor Name 12/20/2023 1 [facility] (MEDICARE REPLACEMENT/A DVANTAGE - PPO) [id number] Eron Escudero [id number] Eron Escudero Notes Date Note Type Note [...] lateral ankle pain. He did go to [facility] urgent care on 02 July and was [...] Vera Cameron MD [address], [place], [address], [place] [facility] 08/28/2023 20:30:12
== END 2025-07-14 11:19 | disposition home or self-care (01) ==
LOC: HO.HUSH 10:30
PROVIDERS: PCP Physician Assistant Medical; Visit Provider Urology
DX: R97.20 Elevated prostate specific antigen [PSA] (principal); N40.1 Benign prostatic hyperplasia with lower urinary tract symptoms
CPT/HCPCS: 99214; G2211

== ENCOUNTER → 2025-07-14 10:30 | Outpatient (BNVA) | payer MEDICARE, SELFPAY | PROVIDERS: PCP Physician Assistant Medical; Visit Provider Urology | DX: R97.20 Elevated prostate specific antigen [PSA] (principal); N40.1 Benign prostatic hyperplasia with lower urinary tract symptoms; R39.15 Urgency of urination; Z79.82 Long term (current) use of aspirin; Z79.01 Long term (current) use of anticoagulants; Z87.891 Personal history of nicotine dependence | CPT/HCPCS: 51798; 99212 ==